=== PATIENT | male | born 1965 | race Caucasian/White ===

== ENCOUNTER 2017-06-26 19:47 | Emergency (ER) | payer OTHER ==
[2017-06-26 20:46] LABS: CARBOXYHEMOGLOBIN 8.8 % (0.0-1.5)
[2017-06-26 20:54] LABS: BASO # 0.1 10^3/uL (0.0-0.2); BASO % 0.5 % (0.0-1.0); EOS # 0.3 10^3/uL (0.0-0.50); EOS % 2.5 % (0.0-3.0); HEMATOCRIT 47.3 % (42.0-52.0); HEMOGLOBIN 16.4 g/dl (14.0-18.0); IMMATURE GRANULOCYTE % 0.5 % (0-3.0); LYMPH # 2.8 10^3/uL (1.5-4.5); LYMPH % 21.7 % (24.0-44.0); MEAN CORPUSCULAR HEMOGLOBIN 29.1 pg (27.0-33.0); MEAN CORPUSCULAR HGB CONC 34.7 g/dl (32.0-36.5); MONO # 0.7 10^3/uL (0.0-0.8); NEUTROPHILS % 69.8 % (36.0-66.0); PLATELET COUNT, AUTOMATED 189 10^3/uL (150-450); RED BLOOD COUNT 5.63 10^6/uL (4.30-6.10); RED CELL DISTRIBUTION WIDTH 13.6 % (11.5-14.5)
[2017-06-26 21:04] LABS: INR 0.94; PROTHROMBIN TIME 12.6 SECONDS (12.4-14.5)
[2017-06-26 21:26] LABS: ALBUMIN 3.6 GM/DL (3.2-5.2); ALKALINE PHOSPHATASE 106 U/L (45-117); ANION GAP 10 MEQ/L (8-16); BILIRUBIN,DIRECT < 0.1 MG/DL (0.0-0.2); BILIRUBIN,TOTAL 0.3 MG/DL (0.2-1.0); BLOOD UREA NITROGEN 17 MG/DL (7-18); CARBON DIOXIDE LEVEL 25 MEQ/L (21-32); CHLORIDE LEVEL 102 MEQ/L (98-107); CPK CREATINE PHOSPHOKINASE 107 U/L (39-308); CREATININE FOR GFR 0.77 MG/DL (0.70-1.30); GLOMERULAR FILTRATION RATE > 60.0 (>56); GLUCOSE, FASTING 352 MG/DL (70-100); POTASSIUM SERUM 3.9 MEQ/L (3.5-5.1); SODIUM LEVEL 137 MEQ/L (136-145); TROPONIN I < 0.02 NG/ML (< 0.10)
[2017-06-26 21:28] LABS: MB/CK RELATIVE INDEX 0.93 (< OR =4)
[2017-06-26 21:29] LABS: AST/SGOT 20 U/L (7-37)
[2017-06-26 21:42] LABS: ALT/SGPT 20 U/L (12-78)
[2017-06-26 21:43] LABS: ALBUMIN/GLOBULIN RATIO 0.92 (1.00-1.93); TOTAL PROTEIN 7.5 GM/DL (6.4-8.2)
== END 2017-06-26 22:22 | disposition home or self-care (01) ==
LOC: M ED 19:47
DX: T58.01XA Toxic effect of carbon monoxide from motor vehicle exhaust, accidental (unintentional), initial encounter (principal); R51 Headache; R06.02 Shortness of breath; R07.9 Chest pain, unspecified; R05 Cough; X58.XXXA Exposure to other specified factors, initial encounter; Y92.89 Other specified places as the place of occurrence of the external cause; I25.10 Atherosclerotic heart disease of native coronary artery without angina pectoris; Z95.5 Presence of coronary angioplasty implant and graft; F17.210 Nicotine dependence, cigarettes, uncomplicated; Z79.899 Other long term (current) drug therapy; Z79.82 Long term (current) use of aspirin
CPT/HCPCS: 71046

== ENCOUNTER 2018-03-28 06:54 | Emergency (ER) | payer OTHER ==
[2018-03-28 07:30] LABS: BASO % 0.3 % (0.0-1.0); EOS # 0.2 10^3/uL (0.0-0.50); EOS % 1.5 % (0.0-3.0); HEMATOCRIT 47.1 % (42.0-52.0); HEMOGLOBIN 15.7 g/dl (13.5-17.5); IMMATURE GRANULOCYTE % 0.4 % (0-3.0); LYMPH # 1.6 10^3/uL (1.5-4.5); LYMPH % 14.4 % (24.0-44.0); MEAN CORPUSCULAR HEMOGLOBIN 28.5 pg (27.0-33.0); MEAN CORPUSCULAR HGB CONC 33.3 g/dl (32.0-36.5); MEAN CORPUSCULAR VOLUME 85.5 fl (80.0-96.0); MONO # 0.6 10^3/uL (0.0-0.8); MONO % 5.1 % (0.0-5.0); NEUTROPHILS # 8.7 10^3/uL (1.8-7.7); NEUTROPHILS % 78.3 % (36.0-66.0); PLATELET COUNT, AUTOMATED 162 10^3/uL (150-450); RED BLOOD COUNT 5.51 10^6/uL (4.30-6.10); RED CELL DISTRIBUTION WIDTH 13.8 % (11.5-14.5); WHITE BLOOD COUNT 11.2 10^3/uL (4.0-10.0)
[2018-03-28 07:46] LABS: PROTHROMBIN TIME 13.3 SECONDS (12.1-14.4)
[2018-03-28 07:47] LABS: PARTIAL THROMBOPLASTIN TIME 27.7 SECONDS (25.4-37.6)
[2018-03-28 07:59] LABS: ALBUMIN 3.2 GM/DL (3.2-5.2); ALBUMIN/GLOBULIN RATIO 0.78 (1.00-1.93); ALKALINE PHOSPHATASE 88 U/L (45-117); ALT/SGPT 22 U/L (12-78); ANION GAP 8 MEQ/L (8-16); AST/SGOT 11 U/L (7-37); BILIRUBIN,DIRECT < 0.1 MG/DL (0.0-0.2); BILIRUBIN,TOTAL 0.4 MG/DL (0.2-1.0); BLOOD UREA NITROGEN 10 MG/DL (7-18); CALCIUM LEVEL 8.6 MG/DL (8.5-10.1); CARBON DIOXIDE LEVEL 26 MEQ/L (21-32); CHLORIDE LEVEL 103 MEQ/L (98-107); CPK CREATINE PHOSPHOKINASE 112 U/L (39-308); CREATININE FOR GFR 0.73 MG/DL (0.70-1.30); FREE T4 1.34 NG/DL (0.76-1.46); GLOMERULAR FILTRATION RATE > 60.0 (>56); GLUCOSE, FASTING 360 MG/DL (70-100); LIPASE 323 U/L (73-393); MB/CK RELATIVE INDEX 1.16 (< OR =4); SODIUM LEVEL 137 MEQ/L (136-145); THYROID STIMULATING HORMONE 0.812 uIU/ML (0.358-3.740); TOTAL PROTEIN 7.3 GM/DL (6.4-8.2); TROPONIN I < 0.02 NG/ML (< 0.10)
[2018-03-28] MEDS ORDERED: ISOVUE-370 76% 100ML VIAL (Q9967) As Ordered (08:13)
[2018-03-28 13:39] LABS: CPK CREATINE PHOSPHOKINASE 92 U/L (39-308); MB/CK RELATIVE INDEX 1.41 (< OR =4); TROPONIN I < 0.02 NG/ML (< 0.10)
== END 2018-03-28 14:14 | disposition left against medical advice (07) ==
LOC: M ED 06:54
DX: R07.9 Chest pain, unspecified (principal); R00.0 Tachycardia, unspecified; R94.31 Abnormal electrocardiogram [ECG] [EKG]; R91.1 Solitary pulmonary nodule; I25.10 Atherosclerotic heart disease of native coronary artery without angina pectoris; E11.9 Type 2 diabetes mellitus without complications; E78.5 Hyperlipidemia, unspecified; Z95.5 Presence of coronary angioplasty implant and graft; Z72.0 Tobacco use; Z82.49 Family history of ischemic heart disease and other diseases of the circulatory system; Z79.82 Long term (current) use of aspirin; Z79.84 Long term (current) use of oral hypoglycemic drugs; Z79.899 Other long term (current) drug therapy; Z53.21 Procedure and treatment not carried out due to patient leaving prior to being seen by health care provider
CPT/HCPCS: Q9967

== ENCOUNTER → 2018-04-05 | Outpatient (CLI) | payer OTHER ==
[2018-04-05 16:09] LABS: TROPONIN I < 0.02 NG/ML (< 0.10)
== END ==
LOC: M LAB 15:14
DX: I25.10 Atherosclerotic heart disease of native coronary artery without angina pectoris (principal); G80.9 Cerebral palsy, unspecified
CPT/HCPCS: 36415

== ENCOUNTER → 2018-07-01 | Outpatient (CLI) | payer OTHER ==
[~2018-07-01] MED LIST: ASPI81TA52 PO; ATOR40TA75 PO; GLIP5TAB8 PO; HEPARIN 1,000 UNITS/ML 10ML VIAL (FOR RADIOLOGY& DIALYSIS ONLY) As Ordered ONE; INVO100T PO; ISOVUE-300 61% 50ML VIAL (Q9967) As Ordered ONE; LIDOCAINE 2% MDV 20 ML VIAL As Ordered ONE; LISI10TA4 PO; METO1TAB7 PO; MIDAZOLAM INJ 2 MG/2 ML VIAL (J2250) As Ordered ONE; VITA1CAP25 PO; fentaNYL 100 MCG/2 ML INJECTION (J3010) As Ordered ONE
[2018-07-01 08:34] LABS: HEMATOCRIT 45.5 % (42.0-52.0); HEMOGLOBIN 15.6 g/dl (13.5-17.5); MEAN CORPUSCULAR HEMOGLOBIN 28.6 pg (27.0-33.0); MEAN CORPUSCULAR HGB CONC 34.3 g/dl (32.0-36.5); MEAN CORPUSCULAR VOLUME 83.3 fl (80.0-96.0); PLATELET COUNT, AUTOMATED 165 10^3/uL (150-450); RED BLOOD COUNT 5.46 10^6/uL (4.30-6.10)
[2018-07-01 09:06] LABS: BLOOD UREA NITROGEN 11 MG/DL (7-18); CALCIUM LEVEL 8.5 MG/DL (8.5-10.1); CARBON DIOXIDE LEVEL 25 MEQ/L (21-32); CHLORIDE LEVEL 102 MEQ/L (98-107); CREATININE FOR GFR 0.76 MG/DL (0.70-1.30); GLOMERULAR FILTRATION RATE > 60.0 (>56); GLUCOSE, FASTING 335 MG/DL (70-100); POTASSIUM SERUM 4.1 MEQ/L (3.5-5.1); SODIUM LEVEL 135 MEQ/L (136-145)
--- NOTE | 2018-07-13 13:40 | REPIR ---
DATE OF PROCEDURE: 07/01/2018 ATTENDING SURGEON: Dr. Noa Hernandez SENIOR INFORMATION DEVELOPER: PREOPERATIVE DIAGNOSES: Right lower extremity claudication, tobacco use with two packs per day times 30 years, diabetes mellitus, hypercholesterolemia, hypertension. POSTOPERATIVE DIAGNOSES: Right lower extremity claudication, tobacco use with two packs per day times 30 years, diabetes mellitus, hypercholesterolemia, hypertension. PROCEDURE: Aortogram, iliofemoral angiogram, right lower extremity angiography, right superficial femoral arterial atherectomy with jet stream 2.4/3.4 catheter, right superficial femoral artery angioplasty with a 7 x 100 angioplasty and 7 x 120 Sarah drug-eluting stent postdilated with a 7 x 200 balloon, Mynx closure of the left common femoral artery. 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 Risks, benefits and alternative treatment options were discussed with the patient. ANESTHESIA: Local with sedation with 3 mg of Versed, 150 mcg of fentanyl and 10 mL of 2% lidocaine. CONTRAST: 18.5 mL. SEDATION TIME; From 10:07 a.m. to 11:18 a.m. HEPARIN: 7000 units COMPLICATIONS: None. DRAINS: None. SPECIMEN: None. IMPLANT: 7 x 128 balloon via drug-eluting stent in the right superficial femoral artery. DESCRIPTION OF PROCEDURE: The patient was taken to the angiography suite, placed supine on the angiography room table and then prepped and draped in a standard surgical fashion. The left common femoral artery was cannulated with a micropuncture needle after anesthetizing overlying skin with 2% lidocaine. The micropuncture wire was advanced through the micropuncture needle, which was upsized to a micropuncture sheath. A Bentson wire was advanced through the micropuncture sheath, which was upsized to 5-Armenian sheath. An aortogram and iliofemoral angiogram was performed. A right lower extremity angiogram was performed showing severe diffuse disease along the course of the right superficial femoral artery. The right superficial femoral artery then underwent atherectomy with a jet stream 2.4/3.4 catheter. The remainder of the superficial femoral artery underwent angioplasty and stenting with a 7 x 120 balloon via drug-eluting stent, which was postdilated with a 7 x 200 balloon. A completion angiogram showed resolution of the stenosis with widely patent superficial femoral artery into the popliteal artery and distally. Catheters and wires were removed. The sheath was removed and a Mynx closure device used close the arteriotomy in the left common femoral artery with an additional 10 minutes of adjunctive pressure applied for hemostasis. Dressings were then applied. The patient tolerated the procedure well. All instrument, sponge, and needle counts were correct at the end of the case. There were no complications. Dr. Hernandez was present for and directed the entire case. The patient was transferred to the [facility] and subsequently discharged in stable condition.
== END | disposition home or self-care (01) ==
LOC: M IRPRO 07:53
PROVIDERS: ATTEND Surgery Vascular Surgery
DX: I70.211 Atherosclerosis of native arteries of extremities with intermittent claudication, right leg (principal); E11.9 Type 2 diabetes mellitus without complications; I10 Essential (primary) hypertension; E78.00 Pure hypercholesterolemia, unspecified; F17.210 Nicotine dependence, cigarettes, uncomplicated
CPT/HCPCS: 37227; 75710; 80048; 85027; C1724; C1725; C1760; C1769; C1874; C1887; C1894; J2250; J3010; Q9967

== ENCOUNTER 2018-07-28 09:42 | Observation (INO) | payer OTHER ==
[~2018-07-28] VITALS: Ht 170.2 cm; Wt 88.9 kg
[~2018-07-28 09:42] MED LIST changes: -HEPARIN 1,000 UNITS/ML 10ML VIAL (FOR RADIOLOGY& DIALYSIS ONLY) As Ordered ONE; -ISOVUE-300 61% 50ML VIAL (Q9967) As Ordered ONE; -LIDOCAINE 2% MDV 20 ML VIAL As Ordered ONE; -MIDAZOLAM INJ 2 MG/2 ML VIAL (J2250) As Ordered ONE; -fentaNYL 100 MCG/2 ML INJECTION (J3010) As Ordered ONE
[2018-07-28] MEDS ORDERED: CLOP75TA2 PO (09:49)
[2018-07-28] MEDS ORDERED: METO1TAB32 PO (09:49)
[2018-07-28] MEDS ORDERED: GLIP10TA18 PO (09:49)
[2018-07-28] MEDS ORDERED: LISI-538 PO (09:49)
[2018-07-28 10:37] LABS: HEMATOCRIT 43.6 % (42.0-52.0); HEMOGLOBIN 14.7 g/dl (13.5-17.5); MEAN CORPUSCULAR HEMOGLOBIN 28.2 pg (27.0-33.0); MEAN CORPUSCULAR HGB CONC 33.7 g/dl (32.0-36.5); MEAN CORPUSCULAR VOLUME 83.5 fl (80.0-96.0); PLATELET COUNT, AUTOMATED 180 10^3/uL (150-450); RED BLOOD COUNT 5.22 10^6/uL (4.30-6.10)
[2018-07-28 11:00] LABS: ERYTHROCYTE SEDIMENTATION RATE 45 mm/hr (0-20)
[2018-07-28 11:11] LABS: BLOOD UREA NITROGEN 8 MG/DL (7-18); CALCIUM LEVEL 8.7 MG/DL (8.5-10.1); CARBON DIOXIDE LEVEL 22 MEQ/L (21-32); CHLORIDE LEVEL 98 MEQ/L (98-107); CREATININE FOR GFR 0.67 MG/DL (0.70-1.30); GLOMERULAR FILTRATION RATE > 60.0 (>56); GLUCOSE, FASTING 331 MG/DL (70-100); POTASSIUM SERUM 3.7 MEQ/L (3.5-5.1); SODIUM LEVEL 133 MEQ/L (136-145)
[2018-07-28] MEDS ORDERED: ISOVUE-370 76% 100ML VIAL (Q9967) As Ordered ONE (11:28)
--- NOTE | 2018-07-28 12:37 | REP ---
CT NECK WITH CONTRAST: HISTORY: Possible mass. A B.B. was placed on the mid posterior neck at the C3-4 level. A punctate calcification is present in the base of the epiglottis. This may be secondary to previous inflammatory disease or trauma. The naso- and oropharynx, larynx and subglottic trachea are normal in appearance. The salivary glands are normal in size and in density. Two 3 mm hypodensities are present in the right and left thyroid lobes. These most likely represent cysts. The thyroid gland is normal in size. An enlarged lymph node 1.6 cm in width is present in the right posterior triangle at the level of the thyroid cartilage. Small lymph nodes less than 1 cm in size are present in the internal jugular chains, left posterior triangle and submandibular areas. An ill-defined isodense soft tissue density is present in the midline posterior subcutaneous tissue at the C2 level. This measures approximately 2.5 cm in width. Stranding is present in the surrounding subcutaneous tissue. This extends from the inferior occiput to the C4 vertebral body. There is no abscess. Atherosclerotic calcification is present at the carotid bifurcations. 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 The lung apices are clear. Mucosal thickening is present in the ethmoid and right maxillary sinuses. IMPRESSION: There is an ill-defined soft tissue density approximately 2.5 cm width in the midline posterior subcutaneous tissues at the C2 level. This may represent an infected sebaceous cyst or phlegmon. There is surrounding stranding consistent with edema. There is no abscess. Electronically Signed by Luis Aleman MD 07/28/2018 12:46 P
[2018-07-28] MEDS ORDERED: MORPHINE 4 MG/ML 1ML VIAL/SYRINGE (J2270) IV ONE (12:45)
[2018-07-28] MEDS ORDERED: CLINDAMYCIN 600 MG in APPROPRIATE DILUENT 1 EA IV ONE (12:45)
--- NOTE | 2018-07-28 16:42 | HPE ---
DATE OF ADMISSION: 07/28/2018 53-year-old male with a past medical history of hypertension, hyperlipidemia, diabetes, who presented to the emergency room with pain and swelling in the back of his neck. This happened about 48 hours ago. He denies any drainage from the site. He came to the emergency room for evaluation. In the emergency room, he had a CT scan of his neck done that showed a soft tissue mass. The CT was officially read as an infected sebaceous cyst or phlegmon. The patient was started on IV clindamycin. Dr. eFrnandez has been called for surgical consultation and he will see the patient shortly. The patient will be admitted for further management. He denies any subjective feeling of fevers, aches or chills. He has not had a recent hair cut in that area in the past few days. PAST MEDICAL HISTORY: Again, past medical history of: 1. Hypertension. 2. Diabetes. 3. Hyperlipidemia. ALLERGIES: He has no known drug allergies. FAMILY HISTORY: Noncontributory. SOCIAL HISTORY: The patient smokes a pack a day for many years. Denies alcohol or illicit drugs. MEDICATIONS: He takes at home: - aspirin 81 mg by mouth daily - atorvastatin 40 mg by mouth at bedtime - cholecalciferol 50,000 units by mouth weekly - Plavix 75 mg by mouth at bedtime - glipizide 20 mg by mouth at bedtime - Lisinopril 20 mg by mouth at bedtime - metoprolol 25 mg by mouth at bedtime REVIEW OF SYSTEMS: Negative for all ten major systems except what is mentioned in the history of present illness. PHYSICAL EXAMINATION: VITAL SIGNS: Blood pressure 140/81, heart rate is 124 and regular, respiratory rate 18, temperature 97.5, oxygen saturation 96% on room air. Head is atraumatic, normocephalic. Neck is supple with no jugular venous distention (JVD). Lungs clear to auscultation. S1, S2 audible. No murmurs appreciated. Abdomen is soft. Positive bowel sounds. No pedal edema. Skin: There is a large mass in the occipital region of the head. There is a tiny scab noted, likely a sinus drainage area. It is painful to touch and is warm. Neurologic examination, the patient is awake, alert and oriented times three. LABORATORIES: WBC 17, hemoglobin is 14.7, hematocrit 42.6, platelets 180,000. Sodium 133, potassium 3.7, chloride 98, CO2 of 22, BUN 8, creatinine 0.67, glucose 331. IMPRESSION: Neck abscess. PLAN: The patient is to be admitted to the medical/surgical floor. We will continue the patient on IV Zosyn and doxycycline. We await Dr. Fernandez's recommendations on consult. We will continue all of his preadmission medications and his care on the medical/surgical floor.
[2018-07-28] MEDS: PIPERACILLIN/TAZOBACTAM SOD 3.375 GM in D5W MINI-BAG PLUS 50 ML IV SCH (18:00)
[2018-07-28 18:30] VITALS: BP 118/72
[2018-07-28] MEDS ORDERED: MIDAZOLAM INJ 2 MG/2 ML VIAL (J2250) As Ordered ONE (20:31)
[2018-07-28] MEDS ORDERED: fentaNYL 100 MCG/2 ML INJECTION (J3010) As Ordered ONE (20:31)
[2018-07-28] MEDS ORDERED: PROPOFOL 200 MG/20 ML VIAL As Ordered ONE (20:31)
[2018-07-28] MEDS ORDERED: LR 1,000 ML IV SCH (21:00)
[2018-07-28] MEDS ORDERED: PERCOCET 5MG/325MG TAB PO PRN (21:00)
[2018-07-28] MEDS ORDERED: METOCLOPRAMIDE INJ 10MG/2ML VIAL (J2765) IV PRN (21:00)
[2018-07-28] MEDS ORDERED: ONDANSETRON 4MG/2ML VIAL (J2405) IV PRN (21:00)
[2018-07-28] MEDS ORDERED: fentaNYL 100 MCG/2 ML INJECTION (J3010) IV PRN (21:00)
[2018-07-28] MEDS ORDERED: PERCOCET 5MG/325MG TAB As Ordered ONE (21:13)
[2018-07-28] MEDS ORDERED: ONDANSETRON 4MG/2ML VIAL (J2405) As Ordered ONE (21:13)
[2018-07-28] MEDS: ATORVASTATIN 20 MG TAB PO SCH (22:13)
[2018-07-28] MEDS: glipiZIDE XL 5 MG TABCR PO SCH (22:14)
[2018-07-28] MEDS: ASPIRIN 81 MG CHEW TABLET PO SCH (22:14)
[2018-07-28] MEDS: METOPROLOL SUCC *XL* 25MG TAB (TopROL *XL*) PO SCH (22:14)
[2018-07-28] MEDS: LISINOPRIL 20 MG TAB PO SCH (22:14)
[2018-07-28] MEDS: CLOPIDOGREL 75 MG TAB PO SCH (22:14)
[2018-07-28 22:25] VITALS: BP 149/88
[2018-07-28] MEDS: DOXYCYCLINE HYCLATE 100 MG in D5W MINI-BAG PLUS 100 ML IV SCH (22:44)
[2018-07-28 23:55] VITALS: BP 138/68
[2018-07-29] MEDS: PIPERACILLIN/TAZOBACTAM SOD 3.375 GM in D5W MINI-BAG PLUS 50 ML IV SCH ×4 (00:35→17:44)
[2018-07-29 02:00] VITALS: BP 140/62
[2018-07-29] MEDS: MORPHINE 4 MG/ML 1ML VIAL/SYRINGE (J2270) IV PRN ×3 (05:54→18:10)
[2018-07-29 06:00] VITALS: BP 147/75
[2018-07-29] MEDS ORDERED: LIDOCAINE 1% MDV 20ML VIAL XX ONE (06:33)
[2018-07-29 06:55] LABS: BASO # 0.1 10^3/uL (0.0-0.2); BASO % 0.3 % (0.0-1.0); EOS # 0.3 10^3/uL (0.0-0.50); EOS % 1.3 % (0.0-3.0); HEMATOCRIT 43.7 % (42.0-52.0); HEMOGLOBIN 14.6 g/dl (13.5-17.5); LYMPH # 1.5 10^3/uL (1.5-4.5); LYMPH % 7.1 % (24.0-44.0); MEAN CORPUSCULAR HEMOGLOBIN 28.1 pg (27.0-33.0); MEAN CORPUSCULAR HGB CONC 33.4 g/dl (32.0-36.5); MEAN CORPUSCULAR VOLUME 84.2 fl (80.0-96.0); MONO % 10.2 % (0.0-5.0); NEUTROPHILS # 16.4 10^3/uL (1.8-7.7); NEUTROPHILS % 80.4 % (36.0-66.0); PLATELET COUNT, AUTOMATED 191 10^3/uL (150-450); RED BLOOD COUNT 5.19 10^6/uL (4.30-6.10); WHITE BLOOD COUNT 20.5 10^3/uL (4.0-10.0)
[2018-07-29] MEDS ORDERED: GLUCAGON FOR INJ 1 MG VIAL (J1610) SC PRN (07:15)
[2018-07-29] MEDS ORDERED: DEXTROSE 50% 50 ML SYRINGE IV PRN (07:15)
[2018-07-29] MEDS ORDERED: GLUCOSE 4 GM CHEW TABLET PO PRN (07:15)
[2018-07-29 07:23] LABS: MONO # 2.1 10^3/uL (0.0-0.8)
[2018-07-29 07:33] LABS: BLOOD UREA NITROGEN 11 MG/DL (7-18); CALCIUM LEVEL 8.6 MG/DL (8.5-10.1); CARBON DIOXIDE LEVEL 24 MEQ/L (21-32); CHLORIDE LEVEL 97 MEQ/L (98-107); CREATININE FOR GFR 0.62 MG/DL (0.70-1.30); GLOMERULAR FILTRATION RATE > 60.0 (>56); GLUCOSE, FASTING 265 MG/DL (70-100); POTASSIUM SERUM 3.4 MEQ/L (3.5-5.1); SODIUM LEVEL 129 MEQ/L (136-145)
[2018-07-29] MEDS: HumaLOG INSULIN (NovoLOG) PER UNIT SC SCH ×3 (08:37→17:44)
[2018-07-29] MEDS: DOXYCYCLINE HYCLATE 100 MG in D5W MINI-BAG PLUS 100 ML IV SCH ×2 (08:38→21:28)
[2018-07-29 08:39] LABS: HEMOGLOBIN A1c 11.6 %
--- NOTE | 2018-07-29 10:01 | IPNPDOC ---
Text Note Date of Service The patient was seen on 07/29/18. NOTE No acute events overnight. Denies nausea, emesis, or fevers. The pain on the back of his neck is still there, but it is improved. VSSAF NAD neck - posterior neck swelling is decreasing along with the erythema, the dressing is c/d/i labs - see below A) 53y/o male s/p I+D of posterior neck abscess P) reg diet abx change dressing daily with packing ok to d/c from surgical standpoint once WBC improves. Bull Fernandez DO VS,Fishbone, I+O VS, Fishbone, I+O Laboratory Tests 07/28/18 10:29 Red Blood Count 5.22, Mean Corpuscular Volume 83.5, Mean Corpuscular Hemoglobin 28.2, Mean Corpuscular Hemoglobin Concent 33.7, Red Cell Distribution Width 13.2, Calcium Level 8.7 07/29/18 06:37 Red Blood Count 5.19, Mean Corpuscular Volume 84.2, Mean Corpuscular Hemoglobin 28.1, Mean Corpuscular Hemoglobin Concent 33.4, Red Cell Distribution Width 13.1, Calcium Level 8.6, Neutrophils (%) (Auto) 80.4 H, Lymphocytes (%) (Auto) 7.1 L, Monocytes (%) (Auto) 10.2 H, Eosinophils (%) (Auto) 1.3, Basophils (%) (Auto) 0.3, Neutrophils # (Auto) 16.4 H, Lymphocytes # (Auto) 1.5, Monocytes # (Auto) 2.1 H, Eosinophils # (Auto) 0.3, Basophils # (Auto) 0.1 Vital Signs Date Time Temp Pulse Resp B/P (MAP) Pulse Ox O2 Delivery O2 Flow Rate FiO2 07/29/18 06:04 16 07/29/18 06:00 98.5 109 147/75 (99) 96 07/28/18 09:43 Room Air I&O- Last 24 Hours up to 6 AM 07/29/18 06:00 Intake Total 1115 ml Output Total 5 ml Balance 1110 ml DEBBIE FERNANDEZ DO Jul 29, 2018 10:01
--- NOTE | 2018-07-29 10:44 | RO ---
DATE OF PROCEDURE: 07/28/2018 PREOPERATIVE DIAGNOSIS: Posterior neck abscess. POSTOPERATIVE DIAGNOSIS: Posterior neck abscess. PROCEDURE: Incision and drainage of neck abscess. SURGEON: Dr. Fernandez. DOUBLE END TENONER OPERATOR: None. ANESTHESIA: IV sedation with local. COMPLICATIONS: None. ESTIMATED BLOOD LOSS: 5. INDICATIONS FOR PROCEDURE: The patient is 52-year-old male who presents with a large posterior neck abscess. The recommendation is to proceed with incision and drainage. Risks and benefits of the procedure, not limited to but including bleeding, infection, damage to surrounding structures and need for further surgery were discussed in detail with the patient, informed consent was obtained, procedure was planned. DESCRIPTION OF PROCEDURE: The patient brought to operating room one. After sufficient sedation, posterior neck was sterilely prepped and draped with Betadine. Next, time-out was done to confirm proper patient and proper procedure. Following that, 5 mL of local was injected into the skin and subcutaneous tissue overlying the most fluctuant portion of the abscess. Next, a 15 the scalpel was used to make 1/2 cm incision right into the center of the abscess until purulent drainage was encountered. The purulent fluid was sucked out and then hemostats were used to break up loculations gently. Once that was completed, the wound was irrigated with saline, packed with quarter inch iodoform packing, covered with 4x4 and tape, thus ending procedure. The patient tolerated procedure well and was transferred to postanesthesia care unit (PACU) in stable condition. JOANNE
[2018-07-29 14:00] VITALS: BP 139/72
[2018-07-29] MEDS ORDERED: HumaLOG INSULIN (NovoLOG) PER UNIT SC SCH (21:00)
--- NOTE | 2018-07-29 21:20 | IPNPDOC ---
Text Note Date of Service The patient was seen on 07/29/18. NOTE Subjective: Feels much better after draining the posterior neck abscess. how ever his sugars are uncontrolled. He says he cannot take insulin then he will loose his Job. 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 He also says he does not have a glucometer at home so does not check his sugars . He says he does not want one. I did explain that he should take the insulin the the hospital at least because if the sugars are not controlled the infection will not get better easily. He agreed to take it in the hospital. 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 PHYSICAL EXAMINATION: VITAL SIGNS:As below Head is atraumatic, normocephalic. Neck is supple with no jugular venous distention (JVD). Lungs clear to auscultation. Heart: S1, S2 audible. No murmurs appreciated. Abdomen is soft. Positive bowel sounds. No pedal edema. Skin: There is a large mass in the occipital region of the head. There is a tiny scab noted, likely a sinus drainage area. It is painful to touch and is warm. Neurologic examination, the patient is awake, alert and oriented times three. Labs and Radiology: reviewed Assessment and Plan: 53-year-old male with a past medical history of hypertension, hyperlipidemia, diabetes, who presented to the emergency room with pain and swelling in the back of his neck. This happened about 48 hours ago. He denies any drainage from the site. He came to the emergency room for evaluation. In the emergency room, he had a CT scan of his neck done that showed a soft tissue mass. The CT was officially read as an infected sebaceous cyst or phlegmon. The patient was started on IV clindamycin. Dr. Fernandez has been called for surgical cons ultation. The patient was admitted for Neck abscess. Posterior Neck Cellulitis and Abscess went to OR last night had incision and drainage of neck --posterior. continue Zosyn and doxycycline await cultures. Diabetes continue glipizide A1c> 11 sugars are uncontrolled. lispro AC and HS if needed. Levemir in the am pateint is adamant about not using any insulin CAD /PVD continue asa and plavix. Hypertension lisinopril and metoprolol Hyperlipidemia continue statin DVT prophylaxis ordered. VS,Fishbone, I+O VS, Fishbone, I+O Laboratory Tests 07/28/18 10:29 Red Blood Count 5.22, Mean Corpuscular Volume 83.5, Mean Corpuscular Hemoglobin 28.2, Mean Corpuscular Hemoglobin Concent 33.7, Red Cell Distribution Width 13.2, Calcium Level 8.7 Vital Signs Date Time Temp Pulse Resp B/P (MAP) Pulse Ox O2 Delivery O2 Flow Rate FiO2 07/29/18 06:04 16 07/29/18 06:00 98.5 109 147/75 (99) 96 07/28/18 09:43 Room Air I&O- Last 24 Hours up to 6 AM 07/29/18 06:00 Intake Total 1115 ml Output Total 5 ml Balance 1110 ml ANGEILA WOOD MD Jul 29, 2018 07:24
[2018-07-29 21:27] VITALS: BP 144/73
[2018-07-29] MEDS: glipiZIDE XL 5 MG TABCR PO SCH (21:27)
[2018-07-29] MEDS: METOPROLOL SUCC *XL* 25MG TAB (TopROL *XL*) PO SCH (21:27)
[2018-07-29] MEDS: ASPIRIN 81 MG CHEW TABLET PO SCH (21:27)
[2018-07-29] MEDS: LISINOPRIL 20 MG TAB PO SCH (21:27)
[2018-07-29] MEDS: CLOPIDOGREL 75 MG TAB PO SCH (21:27)
[2018-07-29] MEDS: ATORVASTATIN 20 MG TAB PO SCH (21:27)
[2018-07-29 22:00] VITALS: BP 144/73
[2018-07-30] MEDS: PIPERACILLIN/TAZOBACTAM SOD 3.375 GM in D5W MINI-BAG PLUS 50 ML IV SCH ×2 (00:47→06:47)
[2018-07-30 02:00] VITALS: BP 107/57
[2018-07-30 06:00] VITALS: BP 118/68
[2018-07-30 07:13] LABS: BASO # 0.1 10^3/uL (0.0-0.2); BASO % 0.5 % (0.0-1.0); EOS # 0.4 10^3/uL (0.0-0.50); EOS % 2.9 % (0.0-3.0); HEMATOCRIT 43.9 % (42.0-52.0); HEMOGLOBIN 14.9 g/dl (13.5-17.5); LYMPH # 1.6 10^3/uL (1.5-4.5); MEAN CORPUSCULAR HEMOGLOBIN 28.1 pg (27.0-33.0); MEAN CORPUSCULAR HGB CONC 33.9 g/dl (32.0-36.5); MEAN CORPUSCULAR VOLUME 82.8 fl (80.0-96.0); MONO # 1.4 10^3/uL (0.0-0.8); MONO % 10.8 % (0.0-5.0); NEUTROPHILS # 9.5 10^3/uL (1.8-7.7); NEUTROPHILS % 73.3 % (36.0-66.0); PLATELET COUNT, AUTOMATED 197 10^3/uL (150-450)
[2018-07-30 07:28] LABS: BLOOD UREA NITROGEN 11 MG/DL (7-18); CARBON DIOXIDE LEVEL 26 MEQ/L (21-32); CHLORIDE LEVEL 98 MEQ/L (98-107); CREATININE FOR GFR 0.58 MG/DL (0.70-1.30); GLOMERULAR FILTRATION RATE > 60.0 (>56); GLUCOSE, FASTING 245 MG/DL (70-100); POTASSIUM SERUM 3.2 MEQ/L (3.5-5.1); SODIUM LEVEL 132 MEQ/L (136-145)
[2018-07-30] MEDS: HumaLOG INSULIN (NovoLOG) PER UNIT SC SCH (07:30)
[2018-07-30] MEDS ORDERED: POTASSIUM CHLORIDE 10 MEQ SR TABLET PO ONE (08:00)
[2018-07-30] MEDS ORDERED: LEVEMIR (INSULIN DETEMIR) 1 UNITS/0.01ML SC SCH (09:00)
[2018-07-30] MEDS: DOXYCYCLINE HYCLATE 100 MG in D5W MINI-BAG PLUS 100 ML IV SCH (10:19)
[2018-07-30] MEDS ORDERED: SITagliptin 50 MG TAB (JANUVIA) PO ONE (12:00)
[2018-07-30] MEDS ORDERED: CLIN150C14 PO (17:20)
[2018-07-30] MEDS ORDERED: metFORMIN (GLUCOPHAGE) 500 MG TAB PO SCH (18:00)
--- NOTE | 2018-07-30 20:42 | DS.PDOC ---
Discharge Summary General Date of Admission Jul 28, 2018 at 15:26 Date of Discharge 07/30/18 Attending Physician: ANGELIA WOOD MD Discharge Summary PROCEDURES PERFORMED DURING STAY: Incision and drainage of posterior neck abscess DISCHARGE DIAGNOSES: Posterior neck abscess Uncontrolled diabetes Hypertension Hyperlipidemia COMPLICATIONS/CHIEF COMPLAINT: Cellulitis And Abscess Of Neck. HISTORY OF PRESENT ILLNESS: see history and physical HOSPITAL COURSE: Head is atraumatic, normocephalic. Neck is supple with no jugular venous distention (JVD). Lungs clear to auscultation. Heart: S1, S2 audible. No murmurs appreciated. Abdomen is soft. Positive bowel sounds. No pedal edema. Skin: There is a large mass in the occipital region of the head. There is a tiny scab noted, likely a sinus drainage area. It is painful to touch and is warm. Neurologic examination, the patient is awake, alert and oriented times three. Labs and Radiology: reviewed Assessment and Plan: 53-year-old male with a past medical history of hypertension, hyperlipidemia, diabetes, who presented to the emergency room with pain and swelling in the back of his neck. This happened about 48 hours ago. He denies any drainage from the site. He came to the emergency room for evaluation. In the emergency room, he had a CT scan of his neck done that showed a soft tissue mass. The CT was officially read as an infected sebaceous cyst or phlegmon. The patient was started on IV clindamycin. Dr. Fernandez has been called for surgical consultation. The patient was admitted for Neck abscess. Posterior Neck Cellulitis and Abscess went to OR had incision and drainage of neck --posterior. was on Zosyn and doxycycline patient left AMA today. I have sent prescription for clindamycin to his pharmacy. nurses have called him and to to pick it up. He did not even wait for dressing materials which the nurses were going to get for him from a different floor as they were out of it on his floor. Diabetes continue glipizide A1c> 11 sugars are uncontrolled. 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 However patient left AMA CAD /PVD continue asa and plavix. Hypertension lisinopril and metoprolol Hyperlipidemia continue statin DISCHARGE MEDICATIONS: Please see below. ALLERGIES: Please see below. PHYSICAL EXAMINATION ON DISCHARGE: VITAL SIGNS: Please see below. HEENT: Head is atraumatic, normocephalic. Moist mucus membranes. Anicteric eyes. Neck is supple with no jugular venous distention (JVD). Lungs clear to auscultation. Heart: S1, S2 audible. No murmurs appreciated. Abdomen is soft. Positive bowel sounds. No pedal edema. Skin: There is a large mass in the occipital region of the head. There is a tiny scab noted, likely a sinus drainage area. It is painful to touch and is warm. Neurologic examination, the patient is awake, alert and oriented times three. LABORATORY DATA: Please see below. ACTIVITY: As tolerated DIET: Carb consistent DISPOSITION: 07 Against Medical Advice. DISCHARGE INSTRUCTIONS: Daily dressing change with iodoform gauge packing. DISCHARGE CONDITION: [Stable]. TIME SPENT ON DISCHARGE: Greater than 30 minutes. Vital Signs/I&Os Vital Signs Date Time Temp Pulse Resp B/P (MAP) Pulse Ox O2 Delivery O2 Flow Rate FiO2 07/30/18 06:00 97.7 96 18 118/68 (85) 97 07/28/18 09:43 Room Air I&O- Last 24 Hours up to 6 AM 07/30/18 06:00 Intake Total 600 ml Output Total 0 ml Balance 600 ml Laboratory Data Labs 24H Laboratory Tests 2 07/29/18 21:00: Bedside Glucose (Misc Panel) 291H 07/30/18 05:58: Immature Granulocyte % (Auto) 0.5, White Blood Count 13.0H, Red Blood Count 5.30, Hemoglobin 14.9, Hematocrit 43.9, Mean Corpuscular Volume 82.8, Mean Corpuscular Hemoglobin 28.1, Mean Corpuscular Hemoglobin Concent 33.9, Red Cell Distribution Width 13.0, Platelet Count 197, Neutrophils (%) (Auto) 73.3H, Lymphocytes (%) (Auto) 12.0L, Monocytes (%) (Auto) 10.8H, Eosinophils (%) (Auto) 2.9, Basophils (%) (Auto) 0.5, Neutrophils # (Auto) 9.5H, Lymphocytes # (Auto) 1.6, Monocytes # (Auto) 1.4H, Eosinophils # (Auto) 0.4, Basophils # (Auto) 0.1, Nucleated Red Blood Cells % (auto) 0.0, Anion Gap 8, Glomerular Filtration Rate > 60.0, Blood Urea Nitrogen 11, Creatinine 0.58L, Sodium Level 132L, Potassium Level 3.2L, Chloride Level 98, Carbon Dioxide Level 26, Calcium Level 9.0 07/30/18 11:23: Bedside Glucose (Misc Panel) 369H CBC/BMP Laboratory Tests 07/30/18 05:58 Red Blood Count 5.30, Mean Corpuscular Volume 82.8, Mean Corpuscular Hemoglobin 28.1, Mean Corpuscular Hemoglobin Concent 33.9, Red Cell Distribution Width 13.0, Neutrophils (%) (Auto) 73.3 H, Lymphocytes (%) (Auto) 12.0 L, Monocytes (%) (Auto) 10.8 H, Eosinophils (%) (Auto) 2.9, Basophils (%) (Auto) 0.5, Neutrophils # (Auto) 9.5 H, Lymphocytes # (Auto) 1.6, Monocytes # (Auto) 1.4 H, Eosinophils # (Auto) 0.4, Basophils # (Auto) 0.1, Calcium Level 9.0 FSBS Laboratory Tests Test 07/29/18 21:00 07/30/18 11:23 Range/Units Bedside Glucose (Misc Panel) 291 369 70-105 MG/DL Discharge Medications Scheduled (Aspirin EC Low Dose) 81 Mg Tab, 81 MG PO QHS, (Reported) Atorvastatin Calcium (Atorvastatin Calcium) 40 Mg Tab, 40 MG PO QHS, (Reported) Cholecalciferol (Vitamin D3) 50,000 Unit Cap, 50,000 UNITS PO QWEEK, (Reported) ON WEDNESDAY Clindamycin Hcl (Clindamycin HCl) 150 Mg Cap, 300 MG PO TID Clopidogrel Bisulfate (Clopidogrel) 75 Mg Tab, 75 MG PO QHS, (Reported) Glipizide (Glipizide ER) 10 Mg Tab, 20 MG PO QHS, (Reported) Lisinopril (Lisinopril) 20 Mg Tab, 20 MG PO QHS, (Reported) Metoprolol Succinate (Metoprolol Succinate ER) 25 Mg Tab, 25 MG PO QHS, (Reported) Allergies Coded Allergies: No Known Allergies (Unverified , 06/26/17) ANGELIA WOOD MD Jul 30, 2018 20:42
[2018-07-31] MEDS ORDERED: SITagliptin 50 MG TAB (JANUVIA) PO SCH (09:00)
== END 2018-07-30 12:29 | disposition left against medical advice (07) ==
LOC: M ED 09:42 → M ED INP 15:26 → M MS5PR 18:34
PROVIDERS: ADMIT Internal Medicine; ATTEND Internal Medicine Nephrology
DX: L02.11 Cutaneous abscess of neck (principal); E11.65 Type 2 diabetes mellitus with hyperglycemia; Z53.21 Procedure and treatment not carried out due to patient leaving prior to being seen by health care provider; I10 Essential (primary) hypertension; E78.5 Hyperlipidemia, unspecified; F17.210 Nicotine dependence, cigarettes, uncomplicated; Z79.82 Long term (current) use of aspirin; Z79.84 Long term (current) use of oral hypoglycemic drugs; Z79.899 Other long term (current) drug therapy; Z79.02 Long term (current) use of antithrombotics/antiplatelets; I73.9 Peripheral vascular disease, unspecified
CPT/HCPCS: 21501; 36415; 70491; 80048; 83036; 85025; 85027; 85652; 86140; 96374; 96375; 96376; 99284; J2250; J2270; J2405; J2543; J3010; Q9967

== ENCOUNTER → 2018-09-07 | Outpatient (CLI) | payer OTHER ==
[~2018-09-07] MED LIST changes: +CLIN150C14 PO; +CLOP75TA2 PO; +GLIP10TA18 PO; +LISI-538 PO; +METO1TAB32 PO
--- NOTE | 2018-09-07 09:51 | REP ---
BILATERAL LOWER EXTREMITY DUPLEX DOPPLER ARTERIAL ULTRASOUND: Real-time ultrasound evaluation and duplex Doppler interrogation of the bilateral lower extremity arterial systems is performed. A stent is visualized in the right superficial femoral artery. There is scattered moderate atherosclerotic plaquing bilaterally. Biphasic waveforms are seen on the right from the common femoral artery through the mid calf with monophasic waveforms in the distal anterior and posterior tibial arteries. Biphasic waveforms are seen on the left in the common femoral artery and profunda with monophasic waveforms throughout the superficial femoral artery, popliteal artery, and calf arteries. There is elevated peak systolic velocity in the right common femoral artery, proximal superficial femoral artery, and mid to distal left superficial femoral artery suggesting stenosis at these locations. ANGELINA bilaterally is 0.8. PEAK SYSTOLIC VELOCITY RIGHT LEFT Common femoral artery 259.5 cm/s 171.2 cm/s Profunda 160.8 169.1 Proximal SFA 234.2 154.7 Mid SFA 104.2 339.4 Distal SFA 108.1 389.3 Popliteal 64.2 28.7 Proximal JOHN 95.1 12.8 Tibia/peroneal trunk 91.2 38.2 Proximal HEEL PRICKER 38.3 41.6 Distal HEEL PRICKER 27.5 39.3 Distal JOHN 35.4 6.2 IMPRESSION: Moderate scattered atherosclerotic plaquing and narrowing. Stent seen in the right superficial femoral artery. Findings suggesting stenosis of the right common femoral artery, proximal right superficial femoral artery as well as mid to distal left superficial femoral artery. Electronically Signed by Carroll Collins MD 09/07/2018 10:39 A
== END ==
LOC: M RAD 07:47
PROVIDERS: ATTEND Surgery Vascular Surgery
DX: I70.209 Unspecified atherosclerosis of native arteries of extremities, unspecified extremity (principal)

== ENCOUNTER → 2018-10-03 | Outpatient (CLI) | payer OTHER ==
[~2018-10-03] MED LIST changes: +BUPIVACAINE HCL 0.5% 10 ML VIAL As Ordered ONE; +HEPARIN 1,000 UNITS/ML 10ML VIAL (FOR RADIOLOGY& DIALYSIS ONLY) As Ordered ONE; +ISOVUE-300 61% 100ML VIAL (Q9967) As Ordered ONE; +LIDOCAINE 2% MDV 20 ML VIAL As Ordered ONE; +MIDAZOLAM INJ 2 MG/2 ML VIAL (J2250) As Ordered ONE; +diphenhydrAMINE INJ 50MG/ML VIAL (J1200) As Ordered ONE; +fentaNYL 100 MCG/2 ML INJECTION (J3010) As Ordered ONE
--- NOTE | 2018-10-22 09:39 | REPIR ---
DATE OF PROCEDURE: 10/03/2018 PREOPERATIVE DIAGNOSIS: Bilateral claudication and bilateral superficial femoral arterial atherosclerotic occlusive disease. POSTOPERATIVE DIAGNOSES: Bilateral claudication and bilateral superficial femoral arterial atherosclerotic occlusive disease. PROCEDURE: Aortogram, iliofemoral angiogram, selective left common femoral artery catheter placement, MYNX closure of the right common femoral arteriotomy. SURGEON: Dr. Nathalia Hernandez. DUCTFIXING PLUMBER: Michelle David and Kristine Pacheco. INDICATION: The patient is a 53-year-old male with claudication of the lower extremities with the left being worse in the right who will undergo angiogram. ANESTHESIA: Local with 10 mL. FLUORO TIME: 1.1 minutes. CONTRAST: 16 mL of Isovue-300. ESTIMATED BLOOD LOSS: 20 mL IV FLUIDS: 150 mL. HEPARIN: None. COMPLICATIONS: None. DRAINS: None. SPECIMENS: None. IMPLANTS: None. DESCRIPTION OF PROCEDURE: The patient was taken to the angiography suite, placed supine on the angiography room table and prepped and draped in a standard surgical fashion. The right common femoral artery was cannulated. A catheter was placed in the aorta and aortogram was performed. Catheter was pulled down to the level of the bifurcation iliac arteries and an iliofemoral angiogram was performed. Catheter was directed over the bifurcation, placed in the left common femoral artery and a selective left lower extremity angiogram was performed. Catheter was then removed and a MYNX closure device was used to close the arteriotomy in the right common femoral artery with an additional 10 minutes adjunctive pressure applied for hemostasis. Dressings were then applied. The patient tolerated the procedure well. All instrument, sponge and needle counts were correct at the end the case. There were no complications. Dr. Hernandez was present for and directed the entire case. The patient was transferred to the [facility] and subsequent discharged in stable condition
== END | disposition home or self-care (01) ==
LOC: M IRPRO 07:03
PROVIDERS: ATTEND Surgery Vascular Surgery
DX: I70.213 Atherosclerosis of native arteries of extremities with intermittent claudication, bilateral legs (principal)
CPT/HCPCS: 36246; 75716; C1760; C1769; C1887; C1894; G0269; Q9967

== ENCOUNTER 2018-11-04 09:30 | Inpatient (IN) | payer OTHER ==
[~2018-11-04] VITALS: Ht 170.2 cm; Wt 84.3 kg
--- NOTE | 2018-11-04 09:00 | HPEPDOC ---
[facility] Medical History & Physical Date of Admission Nov 04, 2018 Date of Service: Nov 04, 2018 History and Physical ATTENDING: Vascular Margarette Hernandez PCP: [facility]. Cardiology Dr Paiz. HPI: 53year oldM with a past medical history significant for PAD scheduled for Left Fem Pop bypass graft as per Dr Hernandez 11/04/18. No acute medical complaints today. Denies any recent health changes or illnesses. Please also refer to Pre operative clearance placed on chart from the pt's photograph mounter, Dr Paiz. Denies any fevers, chills, weakness, fatigue, Headache, Chest Pain, Shortness of breath, cough, palpitations, abdominal pain, N/V/D or changes in bowel or bladder habits. PMHx: HTN HLD DM Tobacco use CAD/Cardiac Stent. Follows with Dr Paiz. Nuclear Stress 05/03 negative for ischemia. 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 ROS: As noted in HPI, otherwise 11pt ROS of systems reviewed and unremarkable. PE: GEN: 53yoM, appears stated age. Well-nourished, well developed. No acute distress. Alert and oriented x 3. Pleasant, interactive. HEENT: Normocephalic, atraumatic. Sclera are nonicteric. Conjunctiva without injection. No facial asymmetry. Moist mucous membranes. CHEST: Regular rate and rhythm, +S1, +S2 LUNGS: Clear to auscultation bilaterally. No wheezes, rales, or rhonchi. Breathing appears symmetric and easy. Patient is speaking in full sentences. ABD: Round, soft, non-tender, non-distended. +Bowel sounds throughout. No rebound or guarding. EXT: No lower extremity edema appreciated. SKIN: Niland, dry, warm. No rashes. NEURO: Alert and oriented x 3. Cranial nerves III-XII are intact. No focal deficits appreciated. A&P: 1. PAD Plan for Left Fem Pop Bypass graft 11/04/[address] Hernandez. Plavix/ASA/Statin as outpt. 2. CAD/Cardiac Stent. Cardiac pre operative clearance is placed on chart. Metoprolol/ASA as outpt. 3. HLD. Statin. 4. HTN. Lisinopril as outpt, on hold for now. 5. DM. NPO currently. FS 335 this AM. Glipizide as outpt. MED REC PENDING AT THIS TIME. Vital Signs Vital Signs Label Value Date Time Patient Temperature 97.7 degrees F 11/04/18 09 Temperature Source Temporal 11/04/18 09 Pulse 79 11/04/18 09 Respiratory Rate 20 bpm 11/04/18 09 Blood Pressure Assessment 132/70 (90) 11/04/18 09 Bedside Pulse Oximetry 98 % 11/04/18 09 Home Medications Scheduled (Aspirin EC Low Dose) 81 Mg Tab, 81 MG PO QHS Atorvastatin Calcium (Atorvastatin Calcium) 40 Mg Tab, 40 MG PO QHS Cholecalciferol (Vitamin D3) (Vitamin D3) 50,000 Unit Cap, 50,000 UNITS PO QWEEK ON WEDNESDAY Clopidogrel Bisulfate (Clopidogrel) 75 Mg Tab, 75 MG PO QHS Glipizide (Glipizide ER) 10 Mg Tab, 20 MG PO QHS Lisinopril (Lisinopril) 20 Mg Tab, 20 MG PO QHS Metoprolol Succinate (Metoprolol Succinate) 25 Mg Tab, 25 MG PO QHS Allergies Coded Allergies: No Known Allergies (Unverified , 06/26/17) A-FIB/CHADSVASC A-FIB History Current/History of A-Fib/PAF?: No Kisha Alvarez Nov 04, 2018 08:58
[~2018-11-04 09:30] MED LIST changes: -BUPIVACAINE HCL 0.5% 10 ML VIAL As Ordered ONE; -HEPARIN 1,000 UNITS/ML 10ML VIAL (FOR RADIOLOGY& DIALYSIS ONLY) As Ordered ONE; -ISOVUE-300 61% 100ML VIAL (Q9967) As Ordered ONE; +LIDOCAINE 1% MDV 20ML VIAL SQ PRN; -LIDOCAINE 2% MDV 20 ML VIAL As Ordered ONE; +LR 1,000 ML IV ONE; -MIDAZOLAM INJ 2 MG/2 ML VIAL (J2250) As Ordered ONE; -diphenhydrAMINE INJ 50MG/ML VIAL (J1200) As Ordered ONE; -fentaNYL 100 MCG/2 ML INJECTION (J3010) As Ordered ONE
[2018-11-04] MEDS ORDERED: PROPOFOL 500 MG/50 ML VIAL As Ordered ONE (10:20)
[2018-11-04] MEDS ORDERED: MIDAZOLAM INJ 2 MG/2 ML VIAL (J2250) As Ordered ONE (10:20)
[2018-11-04] MEDS ORDERED: dexameTHASONE 4 MG/ML 1ML VIAL (J1100) As Ordered ONE (10:20)
[2018-11-04] MEDS ORDERED: ONDANSETRON 4MG/2ML VIAL (J2405) As Ordered ONE (10:20)
[2018-11-04] MEDS ORDERED: LIDOCAINE 2% INJ 100 MG/5 ML SDV (FOR ANES.) As Ordered ONE (10:20)
[2018-11-04] MEDS ORDERED: fentaNYL 100 MCG/2 ML INJECTION (J3010) As Ordered ONE (10:21)
[2018-11-04] MEDS ORDERED: HumaLOG INSULIN (NovoLOG) PER UNIT As Ordered ONE (10:37)
[2018-11-04] MEDS ORDERED: HumaLOG INSULIN (NovoLOG) PER UNIT SC STA (10:40)
[2018-11-04] MEDS ORDERED: LIDOCAINE 1% SDV INJ 30 ML VIAL As Ordered ONE (10:51)
[2018-11-04] MEDS ORDERED: BUPIVACAINE HCL 0.5% 30 ML VIAL As Ordered ONE (10:51)
[2018-11-04] MEDS ORDERED: HEPARIN SOD (PORCINE) 5000 UNITS/ML VIAL As Ordered ONE (10:51)
[2018-11-04] MEDS ORDERED: THROMBIN SOLN 20,000 UNITS KIT As Ordered ONE (10:51)
[2018-11-04] MEDS ORDERED: HumaLOG INSULIN (NovoLOG) PER UNIT SC ONE (11:00)
[2018-11-04] MEDS ORDERED: ceFAZolin 2 GM/D5W 50 ML IV BAG (J0690 PER 500MG) As Ordered ONE (11:27)
[2018-11-04] MEDS ORDERED: KETAMINE HCL 200 MG/20 ML VIAL As Ordered ONE (11:43)
[2018-11-04] MEDS ORDERED: LIDOCAINE 2% JELLY 6 ML SYRINGE As Ordered ONE (11:47)
[2018-11-04] MEDS ORDERED: HumuLIN R (REGULAR) INSULIN (NovoLIN R) **100U/ML** PER UNIT As Ordered ONE (12:03)
[2018-11-04] MEDS ORDERED: PROPOFOL 200 MG/20 ML VIAL As Ordered ONE (12:07)
[2018-11-04] MEDS ORDERED: BISACODYL 10 MG SUPP PR PRN (13:00)
[2018-11-04] MEDS ORDERED: MORPHINE 4 MG/ML 1ML VIAL/SYRINGE (J2270) IV PRN (13:00)
[2018-11-04] MEDS ORDERED: NORCO, ANEXSIA 5/325MG TABLET (HYDROcodone/ACETAMINOPHEN) PO PRN (13:00)
[2018-11-04] MEDS ORDERED: MOM 30ML SUSPENSION UDC PO PRN (13:00)
[2018-11-04] MEDS ORDERED: ACETAMINOPHEN TAB 650MG DOSE (2X325MG) PO PRN (13:00)
[2018-11-04] MEDS ORDERED: fentaNYL 100 MCG/2 ML INJECTION (J3010) IV PRN (13:30)
[2018-11-04] MEDS ORDERED: ONDANSETRON 4MG/2ML VIAL (J2405) IV PRN (13:30)
[2018-11-04] MEDS ORDERED: oxyCODONE 5MG TAB PO PRN (13:30)
[2018-11-04] MEDS ORDERED: LR 1,000 ML IV SCH (13:30)
[2018-11-04 14:00] VITALS: BP 141/73
[2018-11-04 14:30] VITALS: BP 150/77
[2018-11-04] MEDS ORDERED: COLA100C5 PO (18:18)
[2018-11-04] MEDS ORDERED: HYDR-4571 PO (18:18)
[2018-11-04] MEDS ORDERED: DOCUSATE SODIUM 100 MG CAP PO SCH (21:00)
[2018-11-04] MEDS ORDERED: SENOKOT S TAB PO SCH (21:00)
--- NOTE | 2018-11-23 05:53 | DSES ---
DATE OF ADMISSION: 11/04/2018 DATE OF DISCHARGE: 11/04/2018 PREOPERATIVE DIAGNOSIS: Left lower extremity ischemia and pain. POST DISCHARGE DIAGNOSIS: Left lower extremity ischemia and pain PROCEDURE PERFORMED DURING HOSPITALIZATION: Left external iliac artery, common femoral artery, superficial femoral artery and profunda femoris artery endarterectomy with patch angioplasty with XenoSure biologic patch. HOSPITAL COURSE: The patient was admitted, underwent a left external iliac and femoral endarterectomy with good result. The patient recuperated well and was discharged home in stable condition.
--- NOTE | 2018-11-23 10:46 | RO ---
DATE OF PROCEDURE: 11/04/2018 ATTENDING SURGEON: Dr. Noa Hernandez INHALATION THERAPY AIDES TEACHER: None. PREOPERATIVE DIAGNOSES: Left lower extremity ischemia and pain, diabetes mellitus, tobacco use. POSTOPERATIVE DIAGNOSES: Left lower extremity ischemia and pain, diabetes mellitus, tobacco use. PROCEDURE: Left external iliac artery, common femoral artery, superficial femoral artery and profunda femoris artery endarterectomy with patch angioplasty with XenoSure biologic patch. INDICATION: The patient is a 53-year-old male with severe left lower extremity swelling and pain who has severe atherosclerotic arterial occlusive disease. The patient undergo an endarterectomy with possible patch angioplasty. ANESTHESIA: Local MAC. ESTIMATED BLOOD LOSS: 65 mL IV FLUIDS: 1300 mL COMPLICATIONS: None. DRAINS: None. SPECIMENS: Left external iliac, common femoral, superficial femoral and profunda femoris artery plaque. IMPLANTS: XenoSure biologic patch. PROCEDURE: The patient was taken to the operating room, placed supine on the operating room table and then prepped and draped in a standard surgical fashion. The incision was made obliquely in the left inguinal region. The left external iliac artery, common femoral artery, superficial femoral artery and profunda femoris artery were exposed sharply and then encircled with vessel loops. The patient was given heparin, after which the endarterectomy was completed the arteriotomy was closed using a XenoSure biologic patch and 6-0 Prolene sutures with good flow noted at the completion of procedure. Hemostasis was obtained, after which the deep layer was closed with 2-0 Vicryl and skin approximated with ravindra. Dressings were then applied. The patient tolerated procedure well. All instrument, sponge, needle counts were correct at the end of the case. There were no complications. Dr. Hernandez was present for and directed the entire case. The patient was transferred to the recovery room and subsequently discharged in stable condition.
== END 2018-11-04 19:26 | disposition home or self-care (01) | DRG 169 ==
LOC: M OR 09:30 → M MSPAV 13:53
PROVIDERS: ADMIT Surgery Vascular Surgery; ATTEND Surgery Vascular Surgery
PROC: 04UL0JZ Supplement Left Femoral Artery with Synthetic Substitute, Open Approach (ICD-10-PCS; 2018-11-04)
PROC: 04UJ0JZ Supplement Left External Iliac Artery with Synthetic Substitute, Open Approach (ICD-10-PCS; 2018-11-04)
PROC: 04CJ0ZZ Extirpation of Matter from Left External Iliac Artery, Open Approach (ICD-10-PCS; 2018-11-04)
PROC: 04CL3ZZ Extirpation of Matter from Left Femoral Artery, Percutaneous Approach (ICD-10-PCS; principal; 2018-11-04 11:15)
DX: I70.212 Atherosclerosis of native arteries of extremities with intermittent claudication, left leg (principal); I10 Essential (primary) hypertension; E11.9 Type 2 diabetes mellitus without complications; F17.200 Nicotine dependence, unspecified, uncomplicated; I25.10 Atherosclerotic heart disease of native coronary artery without angina pectoris; Z95.2 Presence of prosthetic heart valve; Z79.82 Long term (current) use of aspirin; Z79.899 Other long term (current) drug therapy

== ENCOUNTER → 2018-12-07 | Outpatient (CLI) | payer OTHER ==
[~2018-12-07] MED LIST changes: +COLA100C5 PO; +HYDR-4571 PO; -LIDOCAINE 1% MDV 20ML VIAL SQ PRN; -LR 1,000 ML IV ONE
--- NOTE | 2018-12-08 05:55 | REP ---
Clinical: Symptoms related to atherosclerotic disease and intermittent claudication. History of relatively recently performed angiography and left endarterectomy. Technique: Real time tillman scale and color Doppler evaluation of the bilateral lower extremity arterial vasculature using linear high frequency transducer. Findings: Evaluation of the right lower extremity demonstrates significant atheromatous plaquing along with a mild area of stenosis involving the right common femoral artery. Significant luminal narrowing of the right superficial femoral artery to the level of the posterior tibial artery is appreciated along with occluded portion of the proximal to mid superficial femoral artery with downstream monophasic wave forms distal to the area of revascularization. Stent noted in the mid to distal superficial femoral artery. Evaluation of the left lower extremity demonstrates significant atheromatous plaquing along with area of stenosis and narrowing involving the proximal through mid left superficial femoral artery. Area of occlusion noted in the distal superficial femoral artery with downstream revascularization and monophasic wave patterns. There is a 4.4 x 2.1 x 2.1 cm hypoechoic complex partially calcified structure within the left groin likely hematoma/seroma related to prior vascular access for endarterectomy. Incidental asymmetric brachial pressures (right greater than left) may warrant evaluation to exclude element of stenosis. Peak systolic velocities (cm/sec) RIGHT LEFT ANGELINA 0.4 0.53 Common femoral artery 138/218 53.4 Profunda femoris 205 60.8 SFA (proximal) 97/occluded 61.8/154 SFA (mid) occluded 34.7/239 SFA (distal) 68.7 occluded Popliteal artery 106 28.8 JOHN (prox.) 94.5 31.2 Tibioperoneal trunk 32 43.5 DIRECTOR OF EMPLOYER SERVICES (prox.) 22.5 63.2 DIRECTOR OF EMPLOYER SERVICES (distal) 9.7 22.8 JOHN (distal) 16.7 11.0 Impression: Considerable atherosclerotic changes as described above including bilateral areas of narrowing/stenosis and occlusion. Electronically Signed by Dharmesh Salgado MD 12/08/2018 05:46 A
== END ==
LOC: M RAD 10:15
PROVIDERS: ATTEND Physician Assistant
DX: I70.213 Atherosclerosis of native arteries of extremities with intermittent claudication, bilateral legs (principal)

== ENCOUNTER → 2018-12-28 | Outpatient (CLI) | payer OTHER ==
[~2018-12-28] MED LIST changes: +BUPIVACAINE HCL 0.5% 10 ML VIAL As Ordered ONE; +ECOT81TA5 PO; +ELIQ5TAB PO; +EZET10TA21 PO; +HEPARIN 1,000 UNITS/ML 10ML VIAL (FOR RADIOLOGY& DIALYSIS ONLY) As Ordered ONE; +ISOVUE-300 61% 50ML VIAL (Q9967) As Ordered ONE; +LIDOCAINE 2% MDV 20 ML VIAL As Ordered ONE; +METF500T13 PO; +MIDAZOLAM INJ 2 MG/2 ML VIAL (J2250) As Ordered ONE; +PROTAMINE SULF INJ 50 MG/5 ML VIAL (J2720) As Ordered ONE; +diphenhydrAMINE INJ 50MG/ML VIAL (J1200) As Ordered ONE; +fentaNYL 100 MCG/2 ML INJECTION (J3010) As Ordered ONE
[2018-12-28 07:25] LABS: HEMOGLOBIN 14.6 g/dl (13.5-17.5); MEAN CORPUSCULAR HEMOGLOBIN 28.2 pg (27.0-33.0); PLATELET COUNT, AUTOMATED 164 10^3/uL (150-450); RED BLOOD COUNT 5.18 10^6/uL (4.30-6.10); WHITE BLOOD COUNT 8.7 10^3/uL (4.0-10.0)
[2018-12-28 07:43] LABS: BLOOD UREA NITROGEN 13 MG/DL (7-18); CALCIUM LEVEL 8.5 MG/DL (8.5-10.1); CARBON DIOXIDE LEVEL 25 MEQ/L (21-32); CHLORIDE LEVEL 102 MEQ/L (98-107); CREATININE FOR GFR 0.72 MG/DL (0.70-1.30); GLOMERULAR FILTRATION RATE > 60.0 (>56); GLUCOSE, FASTING 319 MG/DL (70-100); POTASSIUM SERUM 3.9 MEQ/L (3.5-5.1); SODIUM LEVEL 137 MEQ/L (136-145)
[2018-12-28 12:15] VITALS: BP 140/74
--- NOTE | 2019-01-21 09:42 | REPIR ---
DATE OF PROCEDURE: 12/28/2018 ATTENDING SURGEON: Dr. Noa Hernandez PERSONNEL CLERK: Kailey Tang and Michelle David PREOPERATIVE DIAGNOSES: Right lower extremity claudication, status post left femoral endarterectomy. POSTPROCEDURE DIAGNOSES: Right lower extremity claudication, status post left femoral endarterectomy. PROCEDURE: Left common femoral arterial cannulation, selective right common femoral artery catheter placement with right lower extremity angiogram, Mynx closure of the left common femoral arteriotomy. INDICATION: The patient is a 53-year-old male with bilateral lower extremity claudication who underwent angiography of the left which showed severe calcific atherosclerotic occlusive disease in the left common femoral artery, profunda femoris, superficial femoral and external iliac artery and underwent a femoral endarterectomy. The patient now undergoes evaluation of the right lower extremity with angiography. ANESTHESIA: Local with sedation with 2 mg of Versed, 50 mcg of fentanyl and 20 mL of 2% lidocaine mixed with 0.5% Marcaine. FLUORO TIME: 0.7 minutes. CONTRAST: 3 mL. SEDATION TIME: From 08:01 a.m. to 08:34 a.m. for a total of 33 minutes. COMPLICATIONS: None. DRAINS: None. SPECIMENS: None. IMPLANTS: Left common femoral arteriotomy closure with a Mynx closure device. PROCEDURE: The patient was taken to the angiography suite, placed supine on the angiography room table and then prepped and draped in a standard surgical fashion. The left common femoral artery was cannulated with a micropuncture needle after anesthetizing the overlying skin with 2% lidocaine mixed with 0.5% Marcaine. The micropuncture wire was advanced through the micropuncture needle, which was upsized to a stiff micropuncture sheath. The Bentson wire was advanced through the sheath, which was upsized to 5-Macedonian sheath. An Omni flush catheter was advanced up and over the bifurcation and placed in the right common femoral artery and a right lower extremity angiogram was performed. This showed severe calcific atherosclerotic occlusive disease in the right common femoral, superficial femoral and profunda femoris arteries with occlusion of the SFA distally. The catheters and wires were removed. A Mynx closure device was used to close the arteriotomy in the left common femoral artery with an additional 10 minutes of adjunctive pressure applied for hemostasis. Dressings were then applied. The patient tolerated the procedure well. All instrument, sponge and needle counts were correct at the end of the case. There were no complications. Dr. Hernandez was present for and directed the entire case. The patient was transferred to the holding area and subsequently to the floor in stable condition.
== END ==
LOC: M IRPRO 06:53
PROVIDERS: ATTEND Surgery Vascular Surgery
DX: I70.213 Atherosclerosis of native arteries of extremities with intermittent claudication, bilateral legs (principal); I70.223 Atherosclerosis of native arteries of extremities with rest pain, bilateral legs; I10 Essential (primary) hypertension; E11.9 Type 2 diabetes mellitus without complications; E78.00 Pure hypercholesterolemia, unspecified; F17.210 Nicotine dependence, cigarettes, uncomplicated; Z79.899 Other long term (current) drug therapy; Z79.82 Long term (current) use of aspirin
CPT/HCPCS: 36246; 75710; 80048; 85027; 99152; 99153; C1760; C1769; C1887; C1894; G0269; J1200; J2250; J3010; Q9967

== ENCOUNTER → 2019-03-20 | Outpatient (CLI) | payer OTHER ==
[~2019-03-20] MED LIST changes: -BUPIVACAINE HCL 0.5% 10 ML VIAL As Ordered ONE; +CLOPIDOGREL 75 MG TAB As Ordered ONE; +CLOPIDOGREL 75 MG TAB PO ONE; +HumuLIN R (REGULAR) INSULIN (NovoLIN R) **100U/ML** PER UNIT SQ ONE; +LIDOCAINE 1% MDV 20ML VIAL As Ordered ONE; -LIDOCAINE 2% MDV 20 ML VIAL As Ordered ONE; -PROTAMINE SULF INJ 50 MG/5 ML VIAL (J2720) As Ordered ONE; -diphenhydrAMINE INJ 50MG/ML VIAL (J1200) As Ordered ONE
[2019-03-20 07:23] LABS: HEMATOCRIT 48.7 % (42.0-52.0); HEMOGLOBIN 16.3 g/dl (13.5-17.5); MEAN CORPUSCULAR HEMOGLOBIN 28.8 pg (27.0-33.0); MEAN CORPUSCULAR HGB CONC 33.5 g/dl (32.0-36.5); MEAN CORPUSCULAR VOLUME 86.2 fl (80.0-96.0); PLATELET COUNT, AUTOMATED 194 10^3/uL (150-450); RED BLOOD COUNT 5.65 10^6/uL (4.30-6.10); WHITE BLOOD COUNT 12.1 10^3/uL (4.0-10.0)
[2019-03-20 07:59] LABS: BLOOD UREA NITROGEN 11 MG/DL (7-18); CALCIUM LEVEL 8.9 MG/DL (8.5-10.1); CARBON DIOXIDE LEVEL 24 MEQ/L (21-32); CHLORIDE LEVEL 104 MEQ/L (98-107); CREATININE FOR GFR 0.82 MG/DL (0.70-1.30); GLOMERULAR FILTRATION RATE > 60.0 (>56); GLUCOSE, FASTING 449 MG/DL (70-100); POTASSIUM SERUM 4.2 MEQ/L (3.5-5.1); SODIUM LEVEL 136 MEQ/L (136-145)
--- NOTE | 2019-03-20 11:39 | ROOPDOC ---
[facility] Report Of Operation Report of Operation DATE OF PROCEDURE: 03/20/19 PREPROCEDURE DIAGNOSES: Atherosclerosis of the seminole arteries with lifestyle limiting claudication POSTPROCEDURE DIAGNOSES: Same PROCEDURE: 1. Ultrasound-guided access left common femoral artery 2. Arteriogram right lower extremity with selection views of right popliteal a rtery 3. Cross chronic total occlusion of right SFA and popliteal artery 4. Angioplasty right popliteal artery with 4 x 100 [place] balloon 5. Angioplasty right SFA artery with 6 x 100 [place] balloon 6. Stenting right popliteal and SFA with 6 x 150 Innova stent 2, and proximal 7 x 100 and innova stent 7. Post-dilation with 6 x 200 [place] balloon 8. Attempt to cross chronic total occlusion or region of anterior tibial, peroneal, and posterior tibial artery, aborted 9. Completion arteriograms 10. Mynx closure left common femoral artery SURGEON: Urvashi Herrera MD ANESTHESIA: Local 3 mL lidocaine. Monitored intravenous conscious sedation was a consulting solution director by Dr. Herrera. The patient was independently monitored by registered nurse assigned to the Department of radiology using automated blood pressure, EKG, and pulse oximetry. The detailed conscious sedation record is permanently [facility] information system. The following is the brief sedation record: Start time 08:25, stop time 10:52, insulin 10 units subcutaneous, heparin 6000 units IV, Versed 2 mg IV, fentanyl 100 g IV. Contrast: 100 mL Isovue INDICATION FOR PROCEDURE: Mr. Arteaga is a 53-year-old gentleman with lifestyle limiting claudication who cannot longer do his job successfully and has very short distance claudication with long recovery times. We discussed the risks benefits and alternatives to an arteriogram with potential intervention. The patient has a long segment SFA popliteal occlusion with the origin of all 3 tibials occluded. We are going to try to provide in-line flow if we can, but if not, we would like an arteriogram to show where we could possibly perform a distal bypass. Risks benefits and alternatives were explained and he was agreeable to proceed. Informed consent was obtained. INTERPRETATION: 1. The right lower extremity common femoral artery is widely patent and runs off into a partially stenotic but mostly patent profunda artery with good collateralization to the below-knee posterior tibial and anterior tibial arteries. There is no flow through the chronically occluded right superficial femoral artery and popliteal artery although the popliteal artery does reconstitute for about 2 cm through the central portion with collateral circulation. The origin of all 3 tibial arteries are chronically occluded and they reconstitute about 4-5 cm from the origin from the profunda collaterals. Both the anterior tibial artery and posterior tibial artery runoff to the foot. 2. After angioplasty of the popliteal artery and SFA, there was still limited flow due to heavy plaque and near occlusions. We therefore stented from the proximal popliteal artery to the origin of the SFA and post dilated. This provided widely patent flow, but there was no outflow. Without sufficient outflow, the SFA and popliteal stents will not remain patent. 3. Although we were unable to access the origin of any of the 3 tibial vessels and could not provide tibial outflow, we are hopeful that we would be able to do a retrograde access from the posterior tibial or anterior tibial or both and provide in-line flow. REPORT OF OPERATION: Patient was brought to the angiographic suite in stable condition and placed supine on the fluoroscopic table. His bilateral groins were prepped and draped in a sterile fashion. A timeout was performed. Sedation was administered without complication. The patient's blood glucose preprocedure was greater than 410 units of regular insulin was given in addition to the Versed and fentanyl sedation. We will recheck an Accu-Chek at the end of the case. Ultrasound was used to guide access a microneedle to the left common femoral artery. A wire was passed through this access under fluoroscopic guidance and the needle was removed. The micro-sheath was placed over the wire using a Seldinger technique and a wire was exchanged for a Glidewire. This was advanced into the aorta under fluoroscopic guidance and the sheath was exchanged for 6 Japanese sheath. Unfortunately, there is so much scarring in the left groin that we cannot easily advanced the sheath therefore an 8 dilator was first passed over the wire into the vessel and then the 6 Japanese sheath was placed and flushed with saline. We went up and over the bifurcation with an Omni flushed catheter in the Glidewire. We noted that the bifurcation was extremely narrow and peaked, and it was difficult to traverse. We eventually were able to navigate the catheter into the common femoral artery and right lower extremity arteriograms were performed. Should we need to do a femoropopliteal bypass the patient has a suitable distal target at the anterior tibial or the posterior tibial arteries at the ankle. He does not have suitable popliteal flow for a bypass. The origins of all 3 tibials are occluded, thus a distal bypass would be preferred. We did discuss with the patient that we would try to cross his chronic total occlusion if possible, and therefore we advanced a Glidewire into the profunda and exchanges sheath for 45 cm 6 Japanese sheath. This was flushed with saline. I then carefully navigated into the 1 cm of patent proximal SFA and began the arduous task of crossing the occlusion in the SFA and popliteal arteries. After an extensive period time and multiple catheter and wire changes, we were eventually able to cross over through to the seminole popliteal artery. We confirmed we're in the true lumen with a quick contrast injection at the knee. We then initially tried to get access to either the peroneal, posterior tibial, or anterior tibial artery, but were were not able to really give this a good effort due to the steep bifurcation affecting our pushability of the wires and catheters and the occlusion affecting our ability to navigate the catheters. Therefore, we elected to angioplasty and stent the SFA and popliteal artery first. We predilated the entire length with a 4 x 100 [place] balloon and then angioplasty with a 6 x 200 [place] balloon from the SFA to the Dannie's canal. Following this, we still did not have great flow through the SFA or popliteal and we stented from the proximal popliteal to the origin of the SFA with 2 (6 x 150 cm stents) distal and mid and a 7 x 100 stent proximally. These were post dilated with a 6 x 200 balloon. We also post dilated the popliteal artery with the 4 x 100 balloon. Following this, there was flow through to the distal popliteal artery, but no significant outflow. We attempted to cross from popliteal artery into the origin of all 3 tibial vessels. Unfortunately, there is about a 3 cm chronic total occlusion of each of the tibials, and we were not able to access any of the 3 despite aggressive attempts with multiple wires and catheters. We spent an extensive amount of time trying to cross into any of the tibial vessels, but were ultimately unsuccessful. There wasn't enough collateral outflow or in-line flow in my opinion to keep the popliteal artery and SFA open after angioplasty and stenting. I discussed with the patient the option to bring him back tomorrow and try to cross from below with the tibial access. He is agreeable to this. We will plan to bring him back tomorrow and attempt to cross from below. We will give him Plavix postprocedure today and hopefully he has enough collateral outflow to keep this open until tomorrow. This concluded our procedure for today. The sheath was exchanged for a short 6 Japanese sheath over the wire and the sheath was flushed with saline. A Mynks closure device was deployed with good hemostasis and pressure was held for 10 minutes and the patient was taken back to recovery in stable condition. ESTIMATED BLOOD LOSS: Approximately 10 mL. COMPLICATIONS: None. PLAN: The patient does not have adequate outflow to support the now open SFA and popliteal artery flow. We need at least one tibial vessel outflow and could not cross any of them once we opened the SFA and popliteal. We will bring the patient back for an attempt to cross from tibial access through the DP or the posterior tibial at the ankle. Both vessels are patent, and perhaps we would be able to cross in a retrograde fashion. Otherwise, the patient will need a femoral distal bypass, and this is very high risk for failure in him since he is still smoking. We have counseled him again extensively about smoking cessation. Further recommendations to follow. He should stay on the Plavix and resume all home medications. URVASHI HERRERA MD Mar 20, 2019 11:39
[2019-03-20 14:40] VITALS: BP 148/76
== END ==
LOC: M IRPRO 06:47
PROVIDERS: ATTEND Surgery Vascular Surgery
DX: I70.211 Atherosclerosis of native arteries of extremities with intermittent claudication, right leg (principal); I70.92 Chronic total occlusion of artery of the extremities
CPT/HCPCS: 37226; 75710; 80048; 85027; 99152; 99153; C1725; C1760; C1769; C1876; C1887; C1894; J2250; J3010; Q9967

== ENCOUNTER → 2019-03-21 | Outpatient (CLI) | payer OTHER ==
[~2019-03-21] MED LIST changes: +ALTEPLASE 2 MG/2 ML VIAL (J2997 PER 1MG) As Ordered ONE; -CLOPIDOGREL 75 MG TAB PO ONE; -ELIQ5TAB PO; -EZET10TA21 PO; +PERCOCET 5MG/325MG TAB PO ONE; +diazePAM 5 MG TAB As Ordered ONE; +diazePAM 5 MG TAB PO ONE
--- NOTE | 2019-03-21 10:16 | ROOPDOC ---
[facility] Report Of Operation Report of Operation DATE OF PROCEDURE: 03/21/19 PREPROCEDURE DIAGNOSES: Atherosclerosis of the ewiiaapaayp arteries with lifestyle limiting claudication POSTPROCEDURE DIAGNOSES: Same PROCEDURE: 1. Ultrasound-guided access right dorsal pedis artery, retrograde 2. Arteriogram anterior tibial artery retrograde 3. Attempt to cross chronic total occlusion origin anterior tibial artery, aborted 4. Ultrasound-guided access right posterior tibial artery, retrograde 5. Cross chronic total occlusion right posterior tibial artery origin and angioplasty with 3 x 100 Arash balloon 6. Angioplasty common femoral and origin of SFA was 7 x 100 Harvey balloon 7. TPA administration across SFA stent, 8 mg 8. Completion arteriograms right lower extremity 9. Manual pressure closure at dorsal pedis and posterior tibial arterial access sites SURGEON: Urvashi Herrera MD ANESTHESIA: Local anesthesia with 2 mL lidocaine. Monitored intravenous conscious sedation was administered by Dr. Herrera. The patient was independently monitored by registered nurses sign of the department of radiology using automated blood pressure, EKG, pulse oximetry. The details sedation record is presently house in the hospital information system. The following a brief sedation record: Start time 07:55, stop time 09 37, Versed 3 mg, fentanyl 175 g, heparin 6000 units, regular insulin 8 units subcutaneous. INDICATION FOR PROCEDURE: Mr. Arteaga is a very pleasant 53-year-old gentleman with lifestyle limiting claudication and can no longer work due to pain in his right leg with ambulation. Yesterday the patient underwent revascularization of his occluded SFA and popliteal arteries, and our plan was to cross that an open it and then get through at least one of his tibial artery origins for her outflow. Unfortunately, we could not antegrade cross any of the tibials despite aggressive efforts. I told the patient that we could bring him back today for one more try from retrograde tibial access. Risks benefits and alternatives were explained and he was agreeable to proceed. If we are not able to open up in-line tibial flow, the revascularization of this SFA will not remain successful. It will thrombosed due to limited outflow. We will then be required to go ahead with a femoral distal bypass, which is high risk for failure in the patient who is still smoking. After lengthy discussion the patient was agreeable to proceed. INTERPRETATION: 1. The anterior tibial artery is patent to the proximal calf where it occludes and there are extensive collaterals leading back to the popliteal artery but no in-line flow, and we were not able to cross through into the popliteal spread aggressive efforts. This was aborted. 2. The posterior tibial artery occludes in the mid calf and we were able to cross the occlusion into the popliteal which was confirmed with a quick injection of contrast. Following this, we were able to successfully angioplasty direct flow from the popliteal into the posterior tibial artery with a 3 x 200 Arash balloon. Multiple inflations were done along the length of the vessel for 3 minutes each. 3. There is stagnant flow and a small amount of thrombus in the SFA and popliteal stents from yesterday, and 8 mg of TPA was administered with resolution of the thrombus. 4. There was questionable inflow into the SFA, likely due to no outflow but we felt it was worthwhile to angioplasty from the common femoral through the origin of the SFA to make sure there was no stenosis. Following this, the vessel was n oted to be widely patent while pulling the catheter back through the vessel while injecting contrast, but the flow was still stagnant likely due to limited outflow. Sometimes the sheath within the small tibial vessel occludes outflow, and since he only has single vessel runoff, this may be affecting his outflow. We did not see any stenosis from the origin of the SFA down through the posterior tibial artery, and therefore we concluded our procedure. At this point, the patient will either have flow through the posterior tibial artery into the foot, or we will need to provide him with a from distal bypass to restore flow. He still has collateral circulation from his profunda, but it is not enough for long-term limb preservation. REPORT OF OPERATION: A she was brought to the angiographic suite in stable condition. His bilateral groins and his right foot and leg were prepped and draped in a sterile fashion. A timeout was performed. Sedation was ministered without complication along with 8 units of insulin for an Accu-Chek greater than 300. We then proceeded to gain access to the dorsal pedis artery in a retrograde fashion with a microneedle under ultrasound guidance. A wire was passed through this access under fluoroscopic guidance the needle was removed. A micro-sheath was placed and flushed with saline. An arteriogram was performed and we found patent inflow to the proximal aspect of the artery word occluded. We then attempted to cross this with a V 18 wire, but it selected the collaterals exclusively. We then selected and angled Glidewire and angled catheter to try to direct through the occlusion towards the popliteal artery, but we were not able to cross despite aggressive attempts. We then changed over to the posterior tibial artery. Ultrasound was used to guide access with a microneedle and a wire was passed through this access retrograde into the posterior tibial artery under fluoroscopic guidance. A micro-sheath was placed and flushed with saline. Arteriogram confirmed occlusion of the posterior tibial artery in the mid calf. We were able to navigated Glidewire up through this occlusion into the popliteal artery with a crossing catheter. We confirmed we were in the true lumen of the popliteal artery with a quick contrast injection and then we navigated R wire and catheter to the proximal common femoral artery. We did not see flow through the artery and by pulling the catheter back we noted there was a small amount of thrombus within the SFA popliteal stents placed yesterday, due to no outflow. TPA 8 mg was administered throughout the stents. We then placed an O18 wire and 3 x 220 Arash balloon across the occlusion into the popliteal artery and angioplasty for three-minute inflations. A second angioplasty was done slightly distal to this for another three-minute inflations. Following this there was in- line flow through the posterior tibial artery. We still did not have great inflow from the common femoral, and I was worried there may be a residual stenosis at the origin of the SFA, psoas 7 x 100 Harvey balloon was advanced across the origin and an angioplasty was performed for 3 minutes and following this, there is widely patent flow through the origin, but there still was not outflow through to the tibial. Injection of contrast was done throughout the stents in the SFA and through the popliteal artery and posterior tibial artery and no obvious signs of outflow stenosis were noted. At this point I felt likely sheath in place was obstructing her outflow and until this was removed we would not know if the patient would have in-line flow to the foot. We therefore removed that sheath at the dorsal pedis and posterior tibial arteries and pres sure was held for 10 minutes gently for good hemostasis. Following this, the patient was taken to recovery in stable condition. We will see how his foot looks over the next few hours to make a decision for intervention based on results. I have let him know that this is as much as we can do endovascularly, and after this he will require open surgery if more revascularization as needed. He is agreeable to this plan. ESTIMATED BLOOD LOSS: Approximately 5 mL. COMPLICATIONS: None. Plan: Our plan is to see how the patient does over the next few hours and if his perfusion is intact. If not, we will discuss options for open surgery. I do not feel more endovascular intervention is likely to be successful and he will likely need a from distal bypass, which will be very tenuous in this patient who has profound proximal and distal end stage vascular disease, and no option for her popliteal bypass due to severe disease in the popliteal and proximal tibials. Even after angioplasty of the popliteal artery, it is a poor choice for target due to the history of occlusion and disease. He also has such limited outflow due to severe tibial disease. His best option is a distal bypass, although this will be very tenuous in a patient who is actively smoking and likely to fail. He has a risk for limb loss and I have expressed this to him. URVASHI HERRERA MD Mar 21, 2019 10:16
[2019-03-21 14:30] VITALS: BP 174/84
== END ==
LOC: M IRPRO 07:04
PROVIDERS: ATTEND Surgery Vascular Surgery
DX: I70.211 Atherosclerosis of native arteries of extremities with intermittent claudication, right leg (principal); I70.92 Chronic total occlusion of artery of the extremities
CPT/HCPCS: 37184; 37224; 37228; 75710; 99152; 99153; C1725; C1769; C1887; C1894; J2250; J2997; J3010; Q9967

== ENCOUNTER → 2019-03-30 | Outpatient (CLI) | payer OTHER ==
[~2019-03-30] MED LIST changes: -ALTEPLASE 2 MG/2 ML VIAL (J2997 PER 1MG) As Ordered ONE; -CLOPIDOGREL 75 MG TAB As Ordered ONE; +EZET10TA21 PO; -HEPARIN 1,000 UNITS/ML 10ML VIAL (FOR RADIOLOGY& DIALYSIS ONLY) As Ordered ONE; -HumuLIN R (REGULAR) INSULIN (NovoLIN R) **100U/ML** PER UNIT SQ ONE; -ISOVUE-300 61% 50ML VIAL (Q9967) As Ordered ONE; -LIDOCAINE 1% MDV 20ML VIAL As Ordered ONE; -MIDAZOLAM INJ 2 MG/2 ML VIAL (J2250) As Ordered ONE; -PERCOCET 5MG/325MG TAB PO ONE; -diazePAM 5 MG TAB As Ordered ONE; -diazePAM 5 MG TAB PO ONE; -fentaNYL 100 MCG/2 ML INJECTION (J3010) As Ordered ONE
--- NOTE | 2019-03-30 12:34 | REP ---
Bilateral lower extremity duplex venous ultrasound: Vein mapping study. History: Atherosclerosis. Intermittent claudication. Encounter for preprocedural examination. Findings: There is no evidence of deep venous thrombosis. There is a collateral vein off the greater saphenous vein proximally on the right. Superficial system vein diameter chart: Proximal greater saphenous vein: Right 3.2 mm, left 5.3 mm Mid side greater saphenous vein: Right 3.0 mm, left 2.8 mm Distal thigh greater saphenous vein: Right 2.5 mm, left 3.0 mm Proximal calf greater saphenous vein: Right 2.0 mm, left 1.5 mm Midcalf greater saphenous vein: Right 2.0 mm, left 2.2 mm Distal calf greater saphenous vein: Right 2.0 mm, left 1.7 mm Proximal calf lesser saphenous vein: Right 2.7 mm, left 1.7 mm [place]calf lesser saphenous vein: Right 1.7 mm, left 2.2 mm Distal calf lesser saphenous vein: Right 2.0 mm, left 1.8 mm Electronically Signed by Surinder Plummer MD 03/30/2019 12:25 P
== END ==
LOC: M RAD 11:06
PROVIDERS: ATTEND Surgery Vascular Surgery
DX: I70.221 Atherosclerosis of native arteries of extremities with rest pain, right leg (principal)

== ENCOUNTER → 2019-03-30 | Outpatient (CLI) | payer OTHER ==
[2019-03-30 11:09] LABS: HEMATOCRIT 45.3 % (42.0-52.0); MEAN CORPUSCULAR HEMOGLOBIN 28.1 pg (27.0-33.0); MEAN CORPUSCULAR HGB CONC 33.1 g/dl (32.0-36.5); MEAN CORPUSCULAR VOLUME 84.8 fl (80.0-96.0); PLATELET COUNT, AUTOMATED 345 10^3/uL (150-450); RED BLOOD COUNT 5.34 10^6/uL (4.30-6.10); WHITE BLOOD COUNT 11.6 10^3/uL (4.0-10.0)
[2019-03-30 11:40] LABS: BLOOD UREA NITROGEN 13 MG/DL (7-18); CARBON DIOXIDE LEVEL 29 MEQ/L (21-32); CHLORIDE LEVEL 97 MEQ/L (98-107); GLOMERULAR FILTRATION RATE > 60.0 (>56); GLUCOSE, FASTING 312 MG/DL (70-100); POTASSIUM SERUM 3.9 MEQ/L (3.5-5.1); SODIUM LEVEL 135 MEQ/L (136-145)
== END ==
LOC: M LAB 10:17
PROVIDERS: ATTEND Physician Assistant
DX: Z01.818 Encounter for other preprocedural examination (principal)

== ENCOUNTER 2019-03-31 10:00 | Inpatient (IN) | payer OTHER ==
[~2019-03-31] VITALS: Ht 167.6 cm; Wt 81.3 kg
[~2019-03-31 10:00] MED LIST changes: +LR 1,000 ML IV ONE; +ceFAZolin SOD 2 GM in IV 1 EA IV ONE
[2019-03-31] MEDS ORDERED: MORPHINE 2 MG/ML 1ML VIAL (J2270) IV PRN (16:15)
[2019-03-31] MEDS ORDERED: diazePAM 5 MG TAB PO PRN (16:15)
[2019-03-31] MEDS: PERCOCET 5MG/325MG TAB PO PRN ×2 (16:30→22:44)
--- NOTE | 2019-03-31 16:31 | CR.PDOC ---
General Date of Consultation: Mar 31, 2019 Attending Physician: MARIANELA GIORDANO MD Consultation REASON FOR CONSULTATION/CHIEF COMPLAINT: PVD with rest pain RLE HISTORY OF PRESENT ILLNESS: Mr Arteaga is a very pleasant 53-year-old gentleman with severe end-stage peripheral vascular disease. He underwent an attempt at endovascular revascularization of his right lower extremity for very short distance claudication with a long recovery time, and starting to progress to rest pain. He had a known occlusion of his superficial femoral artery, popliteal artery, and proximal tibial vessels. We were able to cross through the superficial femoral artery and popliteal artery and open these vessels with angioplasty and stenting, but we were not able to cross antegrade across the tibials. We then brought the patient back a second day and we were able to cross retrograde through the posterior tibial artery from a distal posterior tibial artery retrograde access but we were not able to cross through the anterior tibial artery from a distal DP retrograde axis. Despite getting in-line flow from the common femoral through to the posterior tibial artery, we still did not have good flow to the foot. I suspect there is some microvascular disease distal to her revascularization. The patient returned to clinic with ongoing complaints of right lower extremity short distance claudication progressing to rest pain. I discussed with him despite the high risk involved with a distal bypass in a patient who is active smoker, we are out of endovascular options for intervention and limb salvage. Unfortunately distal bypasses have a dismal prognosis in patients who smoke and use tobacco and nicotine products, but I wo rry the patient is at risk for limb loss without intervention. At this point, my plan is to perform a common femoral endarterectomy on the right, and open up inflow into the origin of the superficial femoral artery if there is any residual stenosis at the edge of the proximal SFA stent. I then plan to open up the posterior tibial artery at the ankle and see if there is any distal disease I can prove upon to allow outflow into the foot. If necessary we can also perform a thrombectomy of any clot that has accumulated due to distal outflow limitations. If I cannot restore any kind of out flow through the posterior tibial artery, we will plan on doing a femoral to dorsal pedis bypass. The origin of all 3 tibials is chronically occluded except for the posterior tibial but if it does have outflow it is not suitable for bypass. We would be better to do at the distal bypass wherever we have patency and flow. If I'm able to restore flow with a femoral endarterectomy and posterior tibial endarterectomy we may hold off on doing a bypass at this time. We will see how the perfusion looks. He may need an arteriogram and other intervention as well. His saphenous vein is not ideal, but it still may be the best conduit for distal bypass as a large diameter gortex bypass generally does not stay patent when anastomosed to a tiny tibial vessel. The patient and his were extensively counseled about the high risk of limb loss in the high risk of bypass failure, especially if the patient continues to smoke. He is trying very hard to cut back and I gave him a lot of encouragement about this. He is down to 6 or 7 cigarettes a day. We will continue to encourage him towards smoking cessation. I did discuss with him that we would not be using a nicotine replacement products while he was in the hospital and he is understanding of the need to abstain from all nicotine in order to try to restore flow to the foot. ALLERGIES: Please see below. HOME MEDICATIONS: Please see below. PAST MEDICAL HISTORY: Hypertension, diabetes, hypercholesterolemia, atherosclerosis of the cantwell vessels with claudication and rest pain PAST SURGICAL HISTORY: Multiple lower extremity angiograms and interventions, removal of a cyst 2010 FAMILY HISTORY: Hypertension and heart disease SOCIAL HISTORY: Patient is a current active smoker although he is trying to cut down. Occasional alcohol, denies illicit drug use. REVIEW OF SYSTEMS: CONSTITUTIONAL: Denies fevers or chills HEENT: Denies acute vision change CARDIOVASCULAR: Denies palpitations or chest pain RESPIRATORY: Denies cough or hemoptysis. GENITOURINARY: Denies dysuria MUSCULOSKELETAL: Positive claudication and rest pain GASTROINTESTINAL: Denies nausea vomiting diarrhea SKIN: Denies rashes NEUROLOGICAL: Denies headaches or seizures PSYCHIATRIC: Denies anxiety depression ENDOCRINE: Positive diabetes HEMATOLOGIC/LYMPHATIC: Positive easy bruising ALLERGIC/IMMUNOLOGIC: Denies PHYSICAL EXAMINATION: VITAL SIGNS: Please see below. GENERAL APPEARANCE: Medically stable HEENT: Normocephalic TMI RESPIRATORY: Slightly coarse breath sounds bilaterally no wheezes CARDIOVASCULAR: Regular rate and rhythm ABDOMEN: Soft nontender nondistended EXTREMITIES: Warm with brisk cap refill, monophasic signals right DPPT, biphasic signals left DPPT NEUROLOGICAL: Alert and oriented 3 moves all extremities equally PSYCHIATRIC: Pleasant and cooperative LABORATORY DATA: Please see below. ASSESSMENT/PLAN: Very pleasant 53-year-old gentleman with profound right lower extremity peripheral vascular disease, short distance claudication, progressing to rest pain 1. Plan tomorrow for heroic attempt at revascularization right lower extremity for end-stage vascular disease. Tentatively, we plan a right common femoral endarterectomy, posterior tibial endarterectomy, thrombectomy if needed, arterio gram and intervention if needed, possible femoral to distal tibial bypass. 2. Nothing by mouth after midnight, Ancef 2 g on hold for OR, hold Plavix, no nicotine patches or nicotine replacement. 3. Analgesia when necessary. We appreciate the opportunity to participate in the care of this patient. Allergies Coded Allergies: No Known Allergies (Unverified , 03/30/19) Home Medications Scheduled Aspirin (Ecotrin) 81 Mg Tablet.dr, 81 MG PO DAILY, (Reported) Atorvastatin Calcium (Atorvastatin Calcium) 40 Mg Tab, 40 MG PO QHS, (Reported) Clopidogrel Bisulfate (Clopidogrel) 75 Mg Tab, 75 MG PO QHS, (Reported) Ezetimibe (Ezetimibe) 10 Mg Tablet, 10 MG PO DAILY, (Reported) Glipizide (Glipizide ER) 10 Mg Tab, 20 MG PO QHS, (Reported) Lisinopril (Lisinopril) 20 Mg Tab, 20 MG PO QHS, (Reported) Metoprolol Succinate (Metoprolol Succinate) 25 Mg Tab, 25 MG PO QHS, (Reported) URVASHI MANCINI MD Mar 31, 2019 16:31
[2019-03-31] MEDS ORDERED: GLUCOSE 4 GM CHEW TABLET PO PRN (16:45)
[2019-03-31] MEDS ORDERED: GLUCAGON FOR INJ 1 MG VIAL (J1610) SC PRN (16:45)
[2019-03-31] MEDS ORDERED: DEXTROSE 50% 50 ML SYRINGE IV PRN (16:45)
[2019-03-31 17:00] VITALS: BP 159/87
--- NOTE | 2019-03-31 17:06 | HPEPDOC ---
[facility] Medical History & Physical Date of Admission Mar 31, 2019 Date of Service: Mar 31, 2019 Attending Physician: MARIANELA GIORDANO MD History and Physical CHIEF COMPLAINT: Claudication HISTORY OF PRESENT ILLNESS: 53-year-old male, past medical history of coronary artery disease status post cardiac stent, severe peripheral vascular disease, status post multiple arterial stents, hypertension, hyperlipidemia, diabetes mellitus, active smoker, is being admitted for right common from oral endarterectomy and posterior distal endarterectomy. 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 Patient is otherwise without any complaints, denies any shortness of breath, chest pain, nausea, vomiting, abdominal pain or diarrhea at this time. Patient was initially studied for surgery today, due to scheduling will undergo the procedure tomorrow. 10 point review of system is negative except for above PAST MEDICAL HISTORY: 1. Coronary artery disease. 2. Peripheral vascular disease. 3. Hypertension. 4. Diabetes mellitus. 5. 5. Hyperlipidemia PAST SURGICAL HISTORY: 1. Vascular stents. 2. Coronary stents. 3. Abdominal wall cyst removal. SOCIAL HISTORY: Current smoker. Denies alcohol. Denies drug use FAMILY HISTORY: Father with heart disease ALLERGIES: Please see below. HOME MEDICATIONS: Please see below. PHYSICAL EXAMINATION: VITAL SIGNS: Please see below. GENERAL: No distress HEENT: Normocephalic, atraumatic, moist mucous membranes NECK: Supple CARDIOVASCULAR EXAMINATION: S1, S2, systolic murmur appreciated RESPIRATORY EXAMINATION: Clear to auscultation, no wheezing ABDOMINAL EXAMINATION: Soft, nontender, nondistended, positive bowel sounds EXTREMITIES: Range of motion intact SKIN: No rash NEUROLOGICAL EXAMINATION: Alert and oriented 3, no focal deficits PSYCHIATRIC EXAMINATION: Calm and cooperative LABORATORY DATA: See below. MICROBIOLOGY: Please see below. ASSESSMENT: 53-year-old vasculopath being admitted for aggressive intravascular surgical intervention in hopes to prevent amputation. PLAN: 1. Peripheral vascular disease with short distance claudication. Scheduled for right common femoral endarterectomy, posterior tibial endarterectomy with possible bypass. Holding Plavix, pain control, nothing by mouth after midnight, hold DVT prophylaxis tomorrow morning. Vascular surgery on board 2. Hypertension. Continue home meds with hold parameters 3. Diabetes mellitus. Hold glipizide, sliding scale insulin with fingersticks before meals and at bedtime 4. Hyperlipidemia. Continue atorvastatin DVT prophylaxis: Heparin subcutaneous GI prophylaxis: Not needed Vital Signs Vital Signs Date Time Temp Pulse Resp B/P (MAP) Pulse Ox O2 Delivery O2 Flow Rate FiO2 03/31/19 16:30 18 Laboratory Data Labs 24H Laboratory Tests 2 03/31/19 16:51: Bedside Glucose (Misc Panel) 265H Home Medications Scheduled Aspirin (Ecotrin) 81 Mg Tablet.dr, 81 MG PO DAILY Atorvastatin Calcium (Atorvastatin Calcium) 40 Mg Tab, 40 MG PO QHS Clopidogrel Bisulfate (Clopidogrel) 75 Mg Tab, 75 MG PO QHS Ezetimibe (Ezetimibe) 10 Mg Tablet, 10 MG PO DAILY Glipizide (Glipizide ER) 10 Mg Tab, 20 MG PO QHS Lisinopril (Lisinopril) 20 Mg Tab, 20 MG PO QHS Metoprolol Succinate (Metoprolol Succinate) 25 Mg Tab, 25 MG PO QHS Allergies Coded Allergies: No Known Allergies (Unverified , 03/30/19) A-FIB/CHADSVASC A-FIB History Current/History of A-Fib/PAF?: No MARIANELA GIORDANO MD Mar 31, 2019 17:06
[2019-03-31] MEDS: HumaLOG INSULIN (NovoLOG) PER UNIT SC SCH ×2 (17:54→21:35)
[2019-03-31] MEDS: ATORVASTATIN 20 MG TAB PO SCH (21:32)
[2019-03-31] MEDS: HEPARIN SOD (PORCINE) 5000 UNITS/ML VIAL SC SCH (21:32)
[2019-03-31] MEDS: LISINOPRIL 20 MG TAB PO SCH (21:32)
[2019-03-31] MEDS: METOPROLOL SUCC *XL* 25MG TAB (TopROL *XL*) PO SCH (21:33)
[2019-03-31 22:00] VITALS: BP 145/85
[2019-04-01 05:55] LABS: MEAN CORPUSCULAR HEMOGLOBIN 28.1 pg (27.0-33.0); MEAN CORPUSCULAR HGB CONC 33.3 g/dl (32.0-36.5); MEAN CORPUSCULAR VOLUME 84.2 fl (80.0-96.0); PLATELET COUNT, AUTOMATED 338 10^3/uL (150-450); RED BLOOD COUNT 4.99 10^6/uL (4.30-6.10); WHITE BLOOD COUNT 11.8 10^3/uL (4.0-10.0)
[2019-04-01 06:00] VITALS: BP 164/86
[2019-04-01] MEDS ORDERED: ceFAZolin SOD 2 GM in IV 1 EA IV ONE (06:00)
[2019-04-01 06:18] LABS: ALBUMIN 2.4 GM/DL (3.2-5.2); ALT/SGPT 15 U/L (12-78); BILIRUBIN,TOTAL 0.3 MG/DL (0.2-1.0); BLOOD UREA NITROGEN 11 MG/DL (7-18); CALCIUM LEVEL 8.5 MG/DL (8.5-10.1); CARBON DIOXIDE LEVEL 29 MEQ/L (21-32); CHLORIDE LEVEL 98 MEQ/L (98-107); CREATININE FOR GFR 0.53 MG/DL (0.70-1.30); GLOMERULAR FILTRATION RATE > 60.0 (>56); GLUCOSE, FASTING 288 MG/DL (70-100); MAGNESIUM LEVEL 1.7 MG/DL (1.8-2.4); POTASSIUM SERUM 3.7 MEQ/L (3.5-5.1); SODIUM LEVEL 134 MEQ/L (136-145); TOTAL PROTEIN 7.5 GM/DL (6.4-8.2)
[2019-04-01] MEDS: HEPARIN SOD (PORCINE) 5000 UNITS/ML VIAL SC SCH (07:24)
[2019-04-01] MEDS: HumaLOG INSULIN (NovoLOG) PER UNIT SC SCH ×4 (07:30→21:42)
[2019-04-01] MEDS ORDERED: BUPIVACAINE/EPIN 0.25% 30 ML VIAL As Ordered ONE (09:12)
[2019-04-01] MEDS ORDERED: HEPARIN SOD (PORCINE) 5000 UNITS/ML VIAL As Ordered ONE ×8 (09:12→19:06)
--- NOTE | 2019-04-01 09:31 | IPNPDOC ---
Date Seen The patient was seen on 04/01/19. Progress Note Pt seen and examined this morning in PACU. We discussed again that the goal of this procedure is to get him out of constant pain, and hopefully increase his distance for ambulation before claudicating. I do not think we can fully alleviate all of his symptoms, as his vascular insufficiency is too far progressed at this point and he has failed multiple attempts at revascularization already. We will expect some blood loss as pt has been on plavix up until Wednesday, but hopefully not excessive. Discussed with anesthesia pre-op, and will type and cross 2 units PRBC on hold prn. The pt is at risk for limb loss if revascularization fails, so our efforts will be extensive today, and he may require any number of interventions, including open surgery and endovascular, depending on what we find intraoperatively. The pt and I discussed this at length in clinic , yesterday at admission, and again this morning. VS, I&O, 24H, Fishbone Vital Signs/I&O Vital Signs Date Time Temp Pulse Resp B/P (MAP) Pulse Ox O2 Delivery O2 Flow Rate FiO2 04/01/19 06:00 98.9 100 18 164/86 (112) 98 Room Air I&O- Last 24 Hours up to 6 AM 04/01/19 06:00 Intake Total 720 ml Output Total 500 ml Balance 220 ml Laboratory Data 24H LABS Laboratory Tests 2 03/31/19 16:51: Bedside Glucose (Misc Panel) 265H 03/31/19 20:53: Bedside Glucose (Misc Panel) 282H 04/01/19 05:41: Nucleated Red Blood Cells % (auto) 0.0, Anion Gap 7L, Glomerular Filtration Rate > 60.0, Calcium Level 8.5, Magnesium Level 1.7L, Total Bilirubin 0.3, Aspartate Amino Transf (AST/SGOT) 7, Alanine Aminotransferase (ALT/SGPT) 15, Alkaline Phosphatase 88, Total Protein 7.5, Albumin 2.4L, Albumin/Globulin Ratio 0.47L CBC/BMP Laboratory Tests 04/01/19 05:41 URVASHI MANCINI MD Apr 01, 2019 09:31
[2019-04-01] MEDS ORDERED: PROPOFOL 200 MG/20 ML VIAL As Ordered ONE (10:15)
[2019-04-01] MEDS ORDERED: ROCURONIUM BROMIDE 50 MG/5 ML VIAL As Ordered ONE ×5 (10:15→16:38)
[2019-04-01] MEDS ORDERED: ONDANSETRON 4MG/2ML VIAL (J2405) As Ordered ONE (10:15)
[2019-04-01] MEDS ORDERED: PHENYLephrine HCL 500 MCG/5 ML (100MCG/ML) SYRINGE (J2370) As Ordered ONE (10:15)
[2019-04-01] MEDS ORDERED: SUGAMMADEX SODIUM 500 MG/5 ML VIAL (BRIDION) As Ordered ONE (10:15)
[2019-04-01] MEDS ORDERED: dexameTHASONE 4 MG/ML 1ML VIAL (J1100) As Ordered ONE (10:15)
[2019-04-01] MEDS ORDERED: LABETALOL HCL 100 MG/20 ML VIAL As Ordered ONE (10:15)
[2019-04-01] MEDS ORDERED: ETOMIDATE INJ 20MG/10ML VIAL As Ordered ONE (10:15)
[2019-04-01] MEDS ORDERED: METOCLOPRAMIDE INJ 10MG/2ML VIAL (J2765) As Ordered ONE (10:15)
[2019-04-01] MEDS ORDERED: LIDOCAINE 2% INJ 100 MG/5 ML SDV (FOR ANES.) As Ordered ONE (10:15)
[2019-04-01] MEDS ORDERED: fentaNYL 250 MCG/5 ML INJECTION (J3010) As Ordered ONE ×4 (10:15→17:46)
[2019-04-01] MEDS ORDERED: MIDAZOLAM INJ 2 MG/2 ML VIAL (J2250) As Ordered ONE (10:15)
[2019-04-01] MEDS ORDERED: PHENYLEPHRINE INJ 10MG/ML VIAL (J2370) As Ordered ONE ×2 (10:33→16:27)
[2019-04-01] MEDS: MAG SULF 1GM/100ML (MAG RUN) 1 GM in IV 1 EA IV SCH ×2 (13:00→14:00)
[2019-04-01] MEDS ORDERED: POTASSIUM CHLORIDE 10 MEQ SR TABLET PO ONE (13:00)
[2019-04-01] MEDS ORDERED: ceFAZolin 1GM INJ (J0690 PER 500MG) As Ordered ONE ×2 (13:32→17:41)
[2019-04-01] MEDS ORDERED: HumuLIN R (REGULAR) INSULIN (NovoLIN R) **100U/ML** PER UNIT As Ordered ONE (13:51)
[2019-04-01] MEDS ORDERED: ISOVUE-300 61% 50ML VIAL (Q9967) As Ordered ONE ×2 (13:58→16:29)
[2019-04-01] MEDS ORDERED: DESFLURANE 240 ML INHALANT As Ordered ONE (15:10)
[2019-04-01] MEDS ORDERED: HEPARIN 25,000 UNITS/250 ML D5W BAG (100 UNITS/ML) As Ordered ONE (17:28)
[2019-04-01] MEDS ORDERED: ALTEPLASE 2 MG/2 ML VIAL (J2997 PER 1MG) XX ONE (18:00)
[2019-04-01] MEDS ORDERED: ACETAMINOPHEN 1000MG 100ML IV BTL (OFIRMEV) (J0131 PER 10MG) As Ordered ONE (18:36)
[2019-04-01] MEDS ORDERED: LIDOCAINE 2% MDV 20 ML VIAL As Ordered ONE (19:02)
[2019-04-01] MEDS ORDERED: HYDROmorphone HCL 2 MG/ML 1ML VIAL (J1170) IV PRN (19:45)
[2019-04-01] MEDS ORDERED: diazePAM 10 MG TAB PO PRN (19:45)
[2019-04-01] MEDS: HEPARIN DRIP 25,000 UNITS in IV 1 EA IV SCH (19:47)
--- NOTE | 2019-04-01 20:16 | ROOPDOC ---
[facility] Report Of Operation Report of Operation DATE OF PROCEDURE: 04/01/19 PREPROCEDURE DIAGNOSES: End stage right lower extremity peripheral vascular disease with short distance claudication and worsening rest pain POSTPROCEDURE DIAGNOSES: Same. PROCEDURE: 1. Right common femoral endarterectomy and profundoplasty with patch angioplasty 2. Right posterior tibial endarterectomy and plantar thrombectomy 3. Right femoral to distal posterior tibial bypass with in situ vein 4. Right saphenous vein bypass angioplasty with 3 x 220 Arash balloon 5. Right lower extremity arteriograms SURGEON: Padma Herrera MD ANESTHESIA: Gen. anesthesia and local. INDICATION FOR PROCEDURE: Mr. Artaega is a very pleasant 53-year-old patient with profound right lower extremity peripheral vascular disease that has progressed to short distance claudication and worsening rest pain despite multiple attempts at revascularization in the past. He continues to smoke despite our best efforts to encourage him to quit. I had a discussion with the patient that we would do everything we could to try to restore perfusion today, but I cannot make any promises regarding outcomes. We are hopeful that we will be able to restore and outflow to get him out of rest pain and possibly increase his ambulation distance. My plan going into surgery is to do a femoral endarterectomy and profundoplasty to increase flow into the collateral system, see if I can open up flow in the posterior tibial artery and the foot, and possibly do a femoral to distal posterior tibial bypass. No promises were given regarding outcomes as the patient's arterial perfusion is profoundly limited due to severe vascular disease. Risks benefits and alternatives were explained to the patient. He was agreeable to proceed. Informed consent was obtained. INTERPRETATION: 1. Initial arteriograms were performed to identify the branches in the in situ saphenous vein so we might cut down and clip them. 2. Additional arteriograms were performed and we identified a source of poor flow in the mid vein, and after identifying this we made a small cut down over the area and resected a small area of small thickened vein that have partially thrombosed. After performing an end-to-end anastomosis, there was rapid flow through the area, but distal outflow was limited. I felt it may improve flow to have an angioplasty of this suboptimal vein with a 3 x 220 Arash balloon, and following angioplasty there was definitely a more uniform size and flow through the vein. 3. Additional arteriograms were performed and we found rapid flow to the calf but there were still additional branches that became visible and these were also clipped. Following this, there was rapid flow down to the posterior tibial vessel. Unfortunately, despite attempting to open up flow to the plantar vessels in the foot, we had limited distal outflow through the plantar arteries and the main outflow for the vein was retrograde through the posterior tibial artery and then into collaterals. REPORT OF OPERATION: Mr. Arteaga is a very pleasant 53-year-old gentleman who was brought to the OR in stable condition. General anesthesia and antibiotics were administered without complication. His bilateral groins and right lower extremity were prepped and draped in a sterile fashion. A timeout was performed. An oblique incision was made over the right groin just distal to the inguinal ligament and carried down through subcutaneous tissues with Bovie cautery. Bridging veins were suture ligated and divided. Dissection continued down to the femoral sheath which was opened longitudinally over the femoral vessels. Care was taken to carefully skeletonized the common femoral artery in order to preserve any collateral vessels we encountered. Vesseloops were placed around the small vessels. Also, Vesseloops were placed around the circumflex, the SFA, and the profunda. Once we had exposed the femoral vessels and skeletonized proximally and distally within the incision, we also identified the greater saphenous vein and skeletonized this proximally and distally within the incision to its origin at the saphenofemoral junction. Next, we made an incision over the medial ankle longitudinally over the posterior tibial artery. We carried this down to the subcutaneous tissue with Bovie cautery. Sharp dissection was used to incise the fashion expose the posterior tibial artery and veins. We skeletonized the artery proximally and distally within the incision. Vesseloops were placed proximally and distally. 5000 units of heparin was given a lot of circulate. We returned to the right groin and a clamp was placed proximally on the external iliac artery and are Vesseloops were secured to gain hemostasis. A longitudinal arteriotomy was made and extended with the pot scissors. There was significant plaque and heavy calcified posterior plaque that was carefully endarterectomized. A profundoplasty was performed to provide greater flow to the profunda and the collateral circulation. 2 profunda branches were noted. Both were endarterectomized. Following this, we had good backbleeding from both profundus. Once we were satisfied with the endarterectomy, we anastomosis to a bovine carotid patch with 6-0 Prolene suture in a running fashion. Before the final sutures are placed, we flushed her inflow and outflow arteries and irrigated with heparinized saline. We then restored flow through the femoral vessels. There was an excellent pulse and strong triphasic signal at both profunda branches. Next, we returned to the posterior tibial artery. An additional heparin dose was given. We started checking ACTs, and found our heparin anticoagulation was a bit less therapeutic and we wanted. We were hoping for an ACT around 250, and we consistently had a CTs around 150-170. We continued to dose heparin 2000 units at a time up to 14,000 units and then started a heparin drip to better maintain anticoagulation. A total of 15,000 units of heparin and 2 hours of heparin drip at 1200 units an hour was given during the 8 hour case. At the posterior tibial artery, bulldogs were placed proximally and distally in the Vesseloops were removed. A transverse incision was made on the artery and at #2 Rupa was passed proximally and no significant thrombus was retrieved, and then placed distally into the plantar vessel, and only a small amount of thrombus was retrieved. No significant thrombus was noted in either direction. There was good backbleeding from above, but no significant backbleeding from the foot. We irrigated with heparinized saline and 2 interrupted Prolene sutures were placed to close the arteriotomy. Next, we placed a right angle clamp across the saphenofemoral junction on the common femoral vein. A 5-0 Prolene suture was used under the clamp and a mattress fashion to gain hemostasis before placing a bulldog, the saphenous vein and using an 11 blade to excise it from the right angle clamp. We then removed the right angle clamp and oversewed the femoral vein with good hemostasis. The greater saphenous vein was inverted and the valves proximally were excised with the pot scissor. We then laced a clamp on the common femoral artery and resecured our Vessey loops increased it a 6 mm arteriotomy and anastomosed the end of the vein to the artery and and and decide fashion with 6-0 Prolene suture. Before the final sutures were placed, we flushed the inflow and outflow arteries and irrigated with heparinized saline. We then completed the anastomosis and found good hemostasis. A valvulotome was passed up to but not through our anastomosis while injecting heparinized saline and the valves were lysed. We did this a total of 2 times. We then injected contrast through the valvulotome to identify branches in the saphenous vein. Cutdowns were made over the branches and they were clipped. The flow through the distal vein was still sluggish. We knew from her preoperative vein mapping that the vein was not ideal, but it was much more suitable for distal bypass then a ring Sieper-Favian graft. I felt it might have improved flow with angioplasty and through the distal and a V 18 wire and 3 x 220 Arash balloon were advanced. Under fluoroscopy, we angioplastied the entire length of the vein. Following this there was a dramatic improvement in flow. We then resecured our bulldogs on the posterior tibial artery and created a 5 mm arteriotomy and anastomosed the distal end of the vein bypass to the artery and an end-to-side fashion with 6-0 Prolene suture. For the final sutures are placed, we flushed her inflow and outflow and irrigated with heparinized saline. There was good hemostasis after anastomosis. We then utilized a butterfly needle at the common femoral artery to perform completion arteriograms. Unfortunately, we still did not have good flow through the bypass. There was however good flow through the profunda into the small collateral system. There was an area in the mid thigh that appeared to be limiting flow, we made a small cut down over the vein in this area. It appeared there was a small amount of thrombus within the vein. It also. The vein was somewhat bruised, possibly from the valve lysis. Bulldogs were placed proximally and distally and this portion of the vein was excised in a beveled fashion and the 2 ends were reanastomosed and an end-to-end fashion with 6-0 Prolene suture. A suture was placed at each corner to prevent pursestring of the vessel. Before the final sutures are placed we irrigated with heparinized saline and flushed the inflow and outflow. Following this, there was a very good pulse proximal and distal to her new anastomosis. There was still not a great pulses at the ankle, and arteriogram showed there were new branches but had expanded with the increase flow. We then extended 2 of our previous branch incisions and identified the new branches and clipped these as well. Following this there was an excellent pulse in the distal bypass. We had rapid flow into the tibial vessel, but the main outflow was retrograde into the collateral system and not antegrade into the foot. 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 I felt it was worthwhile to see if a little bit of TPA into the plantar vessels might help open anything up, and 4 mg of tPA was injected through the posterior tibial artery towards the foot with a bulldog on the proximal posterior tibial artery in the bypass. This was then flushed with h eparinized saline. Unfortunately, it didn't seem to make a great deal of difference. I don't think the problem is thrombus, as we didn't retrieve much thrombus with thrombectomy of the plantar vessels, I think it is more due to chronic disease and plaque. This then concluded our procedure. All incisions were copiously irrigated with saline. The groin incision was closed in 4 layers of running Vicryl suture, and the deep dermal layer was approximated with interrupted 3-0 Vicryl suture and the skin was closed with ravindra. The thigh incisions were closed in 2 layers of running Vicryl suture and ravindra were used to close the skin. The cath and ankle incisions were closed in 1 layer of running Vicryl suture and skin ravindra were used to close the skin. All wounds were clean and dry. Xeroform gauze and Kerlix were used to dress the incisions on the leg and gauze and tape were used to dress the incision on the groin. The patient was then allowed to awaken from anesthesia and was taken to recovery in stable condition. ESTIMATED BLOOD LOSS: Approximately 400 mL. COMPLICATIONS: None. PLAN: Continue heparin drip per protocol. Keep right foot warm. Okay to DC Lanier in the morning and straight cath when necessary thereafter. Okay to resume diabetic diet. Okay for out of bed with assist. Okay to elevate the head of the bed. It is unclear if this additional perfusion provided today will improve his symptoms of short distance claudication and rest pain and clinically improve his foot. We will have to see how he does over the next 24-48 hours. I do not have options at this point for any additional vascular intervention. We have exhausted all options for reperfusion. PADMA HERRERA MD Apr 01, 2019 20:16
[2019-04-01] MEDS ORDERED: fentaNYL 100 MCG/2 ML INJECTION (J3010) IV PRN (20:30)
[2019-04-01] MEDS ORDERED: LR 1,000 ML IV SCH (20:30)
[2019-04-01] MEDS ORDERED: ONDANSETRON 4MG/2ML VIAL (J2405) IV PRN (20:30)
[2019-04-01 20:40] VITALS: BP 132/58
[2019-04-01 21:00] VITALS: BP 135/54
[2019-04-01] MEDS: METOPROLOL SUCC *XL* 25MG TAB (TopROL *XL*) PO SCH (21:00)
[2019-04-01] MEDS ORDERED: INSULIN IV RATE CHANGE DOCUMENTATION ML/HR XX SCH (21:00)
[2019-04-01] MEDS ORDERED: INSULIN HUMAN REGULAR 100 UNITS in NS 99 ML IV SCH ×4 (21:00)
[2019-04-01 21:30] VITALS: BP 131/58
[2019-04-01] MEDS: ATORVASTATIN 20 MG TAB PO SCH (21:41)
[2019-04-01] MEDS: LISINOPRIL 20 MG TAB PO SCH (21:41)
[2019-04-01 22:00] VITALS: BP 126/53
[2019-04-01 23:00] VITALS: BP 130/54
[2019-04-02] VITALS (16 sets, daily range): BP systolic 104–155; BP diastolic 42–83
[2019-04-02] MEDS: PERCOCET 5MG/325MG TAB PO PRN ×4 (00:39→21:02)
[2019-04-02] MEDS: HYDROmorphone HCL 2 MG/ML 1ML VIAL (J1170) IV PRN ×3 (02:15→09:51)
[2019-04-02] MEDS: HEPARIN SOD (PORCINE) 5000 UNITS/ML VIAL IV PRN ×4 (03:03→23:38)
[2019-04-02 05:40] LABS: HEMATOCRIT 33.4 % (42.0-52.0); MEAN CORPUSCULAR HEMOGLOBIN 28.4 pg (27.0-33.0); MEAN CORPUSCULAR HGB CONC 33.5 g/dl (32.0-36.5); MEAN CORPUSCULAR VOLUME 84.6 fl (80.0-96.0); PLATELET COUNT, AUTOMATED 301 10^3/uL (150-450); RED BLOOD COUNT 3.95 10^6/uL (4.30-6.10); WHITE BLOOD COUNT 21.4 10^3/uL (4.0-10.0)
[2019-04-02 05:45] LABS: HEMOGLOBIN 11.2 g/dl (13.5-17.5)
[2019-04-02 06:53] LABS: ALBUMIN 2.2 GM/DL (3.2-5.2); ALT/SGPT 25 U/L (12-78); BILIRUBIN,TOTAL 0.3 MG/DL (0.2-1.0); BLOOD UREA NITROGEN 8 MG/DL (7-18); CARBON DIOXIDE LEVEL 28 MEQ/L (21-32); CHLORIDE LEVEL 101 MEQ/L (98-107); CREATININE FOR GFR 0.44 MG/DL (0.70-1.30); GLOMERULAR FILTRATION RATE > 60.0 (>56); GLUCOSE, FASTING 237 MG/DL (70-100); MAGNESIUM LEVEL 1.5 MG/DL (1.8-2.4); PHOSPHORUS LEVEL 3.2 MG/DL (2.5-4.9); POTASSIUM SERUM 3.6 MEQ/L (3.5-5.1); SODIUM LEVEL 138 MEQ/L (136-145); TOTAL PROTEIN 5.8 GM/DL (6.4-8.2)
--- NOTE | 2019-04-02 08:33 | IPNPDOC ---
Text Note Date of Service The patient was seen on 04/02/19. NOTE Subjective: Patient seen and examined at bedside. No new medical complaints. Patient is s/p vascular surgical intervention. Denies chest pain, shortness of breath, abdominal pain, N/V/D. Objective: GENERAL: NAD, lying comfortably in bed HEENT: Normocephalic, atraumatic, moist mucous membranes NECK: Supple CARDIOVASCULAR EXAMINATION: +S1S2, systolic murmur RESPIRATORY EXAMINATION: CTA B/L ABDOMINAL EXAMINATION: soft, NT, +BS SKIN: No rash NEUROLOGICAL EXAMINATION: sensation intact throughout, strength grossly 5/5 b/l upper/lower extremities PSYCHIATRIC: AAOx3 LABORATORY DATA: See below. MICROBIOLOGY: Please see below. ASSESSMENT: 53-year-old male with extensive PMHx of vascular disease, admitted for aggressive intravascular surgical intervention in hopes to prevent amputation. PLAN: 1. Peripheral vascular disease with short distance claudication. s/p right common femoral endarterectomy, posterior tibial endarterectomy with bypass. on heparin gtt Vascular surgery f/u pending 2. Hypertension. Continue home meds with hold parameters 3. Diabetes mellitus. Hold glipizide, sliding scale insulin with fingersticks before meals and at bedtime 4. Hyperlipidemia. Continue atorvastatin 5. hypomagnesemia - continue to follow and replete as needed - today 2 IV mag runs Dispo: pending vascular surgery follow up; activity as per vascular; possible transfer to med/surg VS,Tanvir, I+O VS, Tanvir, I+O Laboratory Tests 04/02/19 05:29 04/02/19 05:43 Vital Signs Date Time Temp Pulse Resp B/P (MAP) Pulse Ox O2 Delivery O2 Flow Rate FiO2 04/02/19 06:15 97 21 143/55 (84) 97 Room Air 04/02/19 04:00 97.1 04/01/19 20:25 2 I&O- Last 24 Hours up to 6 AM 04/02/19 06:00 Intake Total 6378 ml Output Total 3025 ml Balance 3353 ml JANICE PETERSON MD Apr 02, 2019 08:33
[2019-04-02] MEDS: HumaLOG INSULIN (NovoLOG) PER UNIT SC SCH ×4 (09:34→21:10)
[2019-04-02] MEDS: MAG SULF 1GM/100ML (MAG RUN) 1 GM in IV 1 EA IV SCH ×2 (09:51→11:10)
[2019-04-02] MEDS: HEPARIN DRIP 25,000 UNITS in IV 1 EA IV SCH ×2 (11:10→23:39)
--- NOTE | 2019-04-02 15:41 | IPNPDOC ---
Date Seen The patient was seen on 04/02/19. Progress Note Patient seen and examined postoperative day one status post extensive limb salvage revascularization yesterday, including right common femoral endarterectomy and profundoplasty with patch angioplasty, right posterior tibial endarterectomy and plantar thrombectomy, right femoral posterior tibial distal bypass with in situ vein, revision of the in situ vein due to porting quality, and subsequent arteriograms and interventions to improve flow through the vein. He is sitting up in bed, just finished lunch, and seems to be doing well. His pain is controlled. He does have significant incisional postop pain, as expected, but he is receiving adequate analgesia. He has not been out of bed. His Lanier is still in place. We will work to getting the Lanier out and out of bed as previously ordered. He may need physical therapy and occupational therapy, but we will see how he does with weightbearing with assist. Per the nightmares, the patient said he would not quit smoking. When I talked to him today, he says he is trying very hard. I told him that 100% this bypass will fail if he continues to smoke and all of our efforts will be for nothing. He is at extremely high risk for limb loss, and we do not have other endovascular or open revascularization option should this fail. On exam, the patient has a warm and pink foot. He has a triphasic signal over the femoral posterior tibial bypass, biphasic signal over the dorsal pedis artery, and this is a significant improvement in both areas. I believe the dorsal pedis flow likely improved with profundoplasty and common femoral endarterectomy improving flow into the patient's collaterals that feed that vessel. Although there was somewhat limited plantar outflow from the posterior tibial and of the foot, what flow he had seems to be enough outflow to maintain the bypass. Likely he also still has a significant amount of the bypass flow go ing retrograde through the posterior tibial and then out through collaterals from there. He had a little bit of oozing overnight from the posterior tibial incision at the ankle, but all of the other incisions are clean and dry. All incisions were thoroughly cleaned, redressed with Xeroform and dry gauze, and the patient tolerated this well. The skin over the medial ankle near the posterior tibial incision is a little tenuous. This was the area of greatest ischemia preoperatively, and unfortunately it can be difficult to heal and incision in an area where the tissue had been ischemic. We will have to watch this closely, but so far is stable. Our plan is for the patient to continue with analgesia when necessary, to get out of bed with assist, for the Lanier to be removed and every 6 hours when necessary straight caths, and possibly transfer to PCU or the floor today per hospitalist recommendations. I think he is stable from a surgical standpoint. We will continue the heparin drip for now. He will need to go home on full anticoagulation instead of Plavix and we will likely convert him to oral anticoagulation tomorrow depending on the status of his revascularization. PTOT prn if he has trouble weightbearing or with ambulation with assist. Close monitoring of his incisions and daily dressing changes. We will plan to get him in the shower postop day 3. No nicotine supplementation or replacements. The patient cannot afford any vasoconstriction at this point. Distal bypasses are tenuous and we need as much vasodilation is possible. Hemoglobin is down from 14 to 11 postop, partially due to intraoperative blood loss 400 mL, partially due to rehydration. This should equilibrate over the next day or 2. We will follow it along. The patient has increased white blood cell to 21 today, likely reactive to and extensive ten-hour surgery yesterday. We will monitor this closely. No signs of infection are present right now. The patient is afebrile with vital signs stable. The incisions are all clean dry and intact. This should return to normal over the next few days. Further recommendations to follow as we progress through his recovery. VS, I&O, 24H, Fishbone Vital Signs/I&O Vital Signs Date Time Temp Pulse Resp B/P (MAP) Pulse Ox O2 Delivery O2 Flow Rate FiO2 04/02/19 15:10 16 04/02/19 10:01 Room Air 04/02/19 06:15 97 143/55 (84) 97 04/02/19 04:00 97.1 04/01/19 20:25 2 l I&O- Last 24 Hours up to 6 AM 04/02/19 05:59 Intake Total 5988 ml Output Total 2825 ml Balance 3163 ml Laboratory Data 24H LABS Laboratory Tests 2 04/01/19 15:43: Kaolin Activated Coagulation Time 175H 04/01/19 15:52: POC pH (Misc Panel) 7.424, POC Base Excess (Misc Panel) 3.0, POC Saturated Percent O2 (Misc) 100H, POC pO2 (Misc Panel) 208.0H, POC pCO2 (Misc Panel) 42.6, POC HCO3 (Misc Panel) 27.9H, POC Glucose (Misc Panel) 307H, POC Sodium (Misc Panel) 136, POC Potassium (Misc Panel) 3.7, POC Total CO2 (Misc Panel) 29.0H, POC Ionized Calcium (Misc Panel) 4.7, POC Hemoglobin (Calculated)(Misc) 12.6, POC Hematocrit (Misc Panel) 37.0L 04/01/19 16:22: Kaolin Activated Coagulation Time 169H 04/01/19 16:28: POC pH (Misc Panel) 7.428, POC Base Excess (Misc Panel) 3.0, POC Saturated Percent O2 (Misc) 100H, POC pO2 (Misc Panel) 205.0H, POC pCO2 (Misc Panel) 41.9, POC HCO3 (Misc Panel) 27.7H, POC Glucose (Misc Panel) 304H, POC Sodium (Misc Panel) 136, POC Potassium (Misc Panel) 3.9, POC Total CO2 (Misc Panel) 29.0H, POC Ionized Calcium (Misc Panel) 4.7, POC Hemoglobin (Calculated)(Misc) 12.9, POC Hematocrit (Misc Panel) 38.0 04/01/19 17:19: Kaolin Activated Coagulation Time 180H 04/01/19 17:27: POC pH (Misc Panel) 7.412, POC Base Excess (Misc Panel) 3.0, POC Saturated Percent O2 (Misc) 100H, POC pO2 (Misc Panel) 201.0H, POC pCO2 (Misc Panel) 43.0, POC HCO3 (Misc Panel) 27.4H, POC Glucose (Misc Panel) 296H, POC Sodium (Misc Panel) 137, POC Potassium (Misc Panel) 4.0, POC Total CO2 (Misc Panel) 29.0H, POC Ionized Calcium (Misc Panel) 4.7, POC Hemoglobin (Calculated)(Misc) 13.9, POC Hematocrit (Misc Panel) 41.0 04/01/19 18:02: Kaolin Activated Coagulation Time 175H 04/01/19 18:10: POC pH (Misc Panel) 7.424, POC Base Excess (Misc Panel) 3.0, POC Saturated Percent O2 (Misc) 100H, POC pO2 (Misc Panel) 188.0H, POC pCO2 (Misc Panel) 41.7, POC HCO3 (Misc Panel) 27.3H, POC Glucose (Misc Panel) 288H, POC Sodium (Misc Panel) 137, POC Potassium (Misc Panel) 4.0, POC Total CO2 (Misc Panel) 29.0H, POC Ionized Calcium (Misc Panel) 4.8, POC Hemoglobin (Calculated)(Misc) 12.2, POC Hematocrit (Misc Panel) 36.0L 04/01/19 18:58: Kaolin Activated Coagulation Time 164H 04/01/19 19:16: POC pH (Misc Panel) 7.413, POC Base Excess (Misc Panel) 3.0, POC Saturated Percent O2 (Misc) 99H, POC pO2 (Misc Panel) 159.0H, POC pCO2 (Misc Panel) 42.5, POC HCO3 (Misc Panel) 27.1H, POC Glucose (Misc Panel) 277H, POC Sodium (Misc Panel) 136, POC Potassium (Misc Panel) 3.9, POC Total CO2 (Misc Panel) 28.0H, POC Ionized Calcium (Misc Panel) 4.7, POC Hemoglobin (Calculated)(Misc) 11.2L, POC Hematocrit (Misc Panel) 33.0L 04/01/19 19:49: Bedside Glucose (Misc Panel) 284H 04/01/19 20:29: Bedside Glucose (Misc Panel) 259H 04/01/19 20:57: Activated Partial Thromboplast Time 77.8H 04/01/19 20:59: Bedside Glucose (Misc Panel) 259H 04/02/19 02:21: Activated Partial Thromboplast Time 39.6H 04/02/19 05:29: Anion Gap 9, Glomerular Filtration Rate > 60.0, Calcium Level 8.0L, Phosphorus Level 3.2, Magnesium Level 1.5L, Total Bilirubin 0.3, Aspartate Amino Transf (AST/SGOT) 73H, Alanine Aminotransferase (ALT/SGPT) 25, Alkaline Phosphatase 68, Total Protein 5.8#L, Albumin 2.2L, Albumin/Globulin Ratio 0.61L 04/02/19 05:43: Nucleated Red Blood Cells % (auto) 0.0 04/02/19 07:59: Activated Partial Thromboplast Time 61.5H 04/02/19 09:17: Bedside Glucose (Misc Panel) 256H 04/02/19 14:03: Bedside Glucose (Misc Panel) 283H CBC/BMP Laboratory Tests 04/02/19 05:29 04/02/19 05:43 URVASHI MANCINI MD Apr 02, 2019 15:41
[2019-04-02] MEDS ORDERED: MORPHINE 4 MG/ML 1ML VIAL/SYRINGE (J2270) IV PRN (15:45)
[2019-04-02] MEDS: HYDROMORPHONE HCL 0.5 MG/ 0.5 ML SYRINGE (J1170 PER 1) IV PRN ×2 (16:27→23:52)
[2019-04-02] MEDS: diazePAM 5 MG TAB PO PRN (18:51)
[2019-04-02] MEDS: LISINOPRIL 20 MG TAB PO SCH (21:01)
[2019-04-02] MEDS: ATORVASTATIN 20 MG TAB PO SCH (21:01)
[2019-04-02] MEDS: METOPROLOL SUCC *XL* 25MG TAB (TopROL *XL*) PO SCH (21:01)
[2019-04-03] MEDS: HYDROMORPHONE HCL 0.5 MG/ 0.5 ML SYRINGE (J1170 PER 1) IV PRN ×6 (03:31→22:43)
[2019-04-03 06:00] VITALS: BP 155/80
[2019-04-03] MEDS: PERCOCET 5MG/325MG TAB PO PRN ×3 (06:03→21:23)
[2019-04-03 07:05] LABS: HEMATOCRIT 33.8 % (42.0-52.0); HEMOGLOBIN 11.1 g/dl (13.5-17.5); MEAN CORPUSCULAR HGB CONC 32.8 g/dl (32.0-36.5); MEAN CORPUSCULAR VOLUME 85.4 fl (80.0-96.0); PLATELET COUNT, AUTOMATED 294 10^3/uL (150-450); RED BLOOD COUNT 3.96 10^6/uL (4.30-6.10); WHITE BLOOD COUNT 12.2 10^3/uL (4.0-10.0)
[2019-04-03 07:19] LABS: BLOOD UREA NITROGEN 6 MG/DL (7-18); CALCIUM LEVEL 8.4 MG/DL (8.5-10.1); CARBON DIOXIDE LEVEL 29 MEQ/L (21-32); CHLORIDE LEVEL 95 MEQ/L (98-107); CREATININE FOR GFR 0.42 MG/DL (0.70-1.30); GLOMERULAR FILTRATION RATE > 60.0 (>56); GLUCOSE, FASTING 277 MG/DL (70-100); POTASSIUM SERUM 3.6 MEQ/L (3.5-5.1); SODIUM LEVEL 133 MEQ/L (136-145)
[2019-04-03] MEDS: HumaLOG INSULIN (NovoLOG) PER UNIT SC SCH ×4 (07:49→21:24)
--- NOTE | 2019-04-03 09:01 | IPNPDOC ---
Text Note Date of Service The patient was seen on 04/03/19. NOTE Vascular surgery. Dr. Herrera Patient seen and examined POD2 status post extensive limb salvage revascularization 04/01/19, including right common femoral endarterectomy and profundoplasty with patch angioplasty, right posterior tibial endarterectomy and plantar thrombectomy, right femoral posterior tibial distal bypass with in situ vein, revision of the in situ vein due to porting quality, and subsequent arteriograms and interventions to improve flow through the vein. He is currently resting in bed, but states he has been up to the side of the bed this morning, and states he has been doing well. His pain is controlled currently. He does have significant incisional postop pain, as expected, but he is receiving adequate analgesia. He states he was out of bed yesterday. PT/OT pending. Per the nightmares, the patient said he would not quit smoking. He states he is doing okay with smoking cessation. He has previously been advised his bypass will likely fail if he continues to smoke. He is at extremely high risk for limb loss, and has few options for other endovascular or open revascularization should this fail. The patient is afebrile. On exam, the patient has a warm and pink foot. He continues to have triphasic signal over the femoral posterior tibial bypass, biphasic signal over the dorsal pedis artery. He continues to have some oozing from the posterior tibial incision at the ankle, but all of the other incisions remain clean and dry. All incisions were thoroughly cleaned this morning, redressed with Xeroform and dry gauze, and Kerlix. The patient tolerated this well. The skin over the medial ankle near the posterior tibial incision remains tenuous. This was the area of greatest ischemia preoperatively so will closely follow. WBC today is 12.2 decreased from 21.4 yesterday. Hemoglobin is stable at 11.1. Plan. Continue to monitor labs. Hemoglobin is stable. WBC is down trending, likely reactive. Continue with pain control. Continue out of bed. PT/OT pending. Continue heparin drip, possibly change to oral anticoagulation. Will discuss further with Dr. Herrera. Continue statin. Continue to closely monitor incisions and daily dressing changes. We will plan to get him in the shower postop day 3. No nicotine supplementation or replacements as the patient cannot afford any vasoconstriction. Continue to strongly reinforce continued smoking cessation. Continue to closely monitor. VS,Fishbone, I+O VS, Fishbone, I+O Laboratory Tests 04/03/19 06:22 Vital Signs Date Time Temp Pulse Resp B/P (MAP) Pulse Ox O2 Delivery O2 Flow Rate FiO2 04/03/19 07:59 18 04/03/19 06:33 Room Air 04/03/19 06:00 98.5 97 155/80 (105) 97 04/01/19 20:25 2 I&O- Last 24 Hours up to 6 AM 04/03/19 06:00 Intake Total 3100 ml Output Total 2075 ml Balance 1025 ml Kisha Alvarez Apr 03, 2019 09:01
[2019-04-03] MEDS: diazePAM 5 MG TAB PO PRN (10:35)
--- NOTE | 2019-04-03 12:27 | IPNPDOC ---
Text Note Date of Service The patient was seen on 04/03/19. NOTE Subjective: Patient seen and examined at bedside. POD #2 s/p vascular surgical intervention. No new medical complaints. Still has foot/leg pain, but states is well controlled with current analgesic therapy. Denies chest pain, shortness of breath, abdominal pain, N/V/D. Objective: GENERAL: NAD, lying comfortably in bed HEENT: Normocephalic, atraumatic, moist mucous membranes NECK: Supple CARDIOVASCULAR EXAMINATION: +S1S2, systolic murmur RESPIRATORY EXAMINATION: CTA B/L ABDOMINAL EXAMINATION: soft, NT, +BS SKIN: No rash NEUROLOGICAL EXAMINATION: sensation intact throughout, strength grossly 5/5 b/l upper/lower extremities PSYCHIATRIC: AAOx3 LABORATORY DATA: See below. MICROBIOLOGY: Please see below. ASSESSMENT: 53-year-old male with extensive PMHx of vascular disease, admitted for aggressive intravascular surgical intervention in hopes to prevent amputation. PLAN: 1. Peripheral vascular disease with short distance claudication. s/p right common femoral endarterectomy, posterior tibial endarterectomy with bypass. on heparin gtt Vascular surgery f/u appreciated - plan to transition to oral DOAC 2. Hypertension. Continue home meds with hold parameters 3. Diabetes mellitus. Hold glipizide, sliding scale insulin with fingersticks before meals and at bedtime 4. Hyperlipidemia. Continue atorvastatin 5. hypomagnesemia - continue to follow and replete as needed - today 2 IV mag runs Dispo: pain control, vascular follow up, transition heparin gtt to oral, transition to oral analgesic VS,Fishbone, I+O VS, Fishbone, I+O Laboratory Tests 04/03/19 06:22 Vital Signs Date Time Temp Pulse Resp B/P (MAP) Pulse Ox O2 Delivery O2 Flow Rate FiO2 04/03/19 11:47 18 04/03/19 06:33 Room Air 04/03/19 06:00 98.5 97 155/80 (105) 97 04/01/19 20:25 2 I&O- Last 24 Hours up to 6 AM 04/03/19 06:00 Intake Total 3100 ml Output Total 2075 ml Balance 1025 ml JANICE PETERSON MD Apr 03, 2019 12:27
[2019-04-03 14:00] VITALS: BP 150/80
[2019-04-03] MEDS: HEPARIN SOD (PORCINE) 5000 UNITS/ML VIAL IV PRN (14:43)
[2019-04-03] MEDS: HEPARIN DRIP 25,000 UNITS in IV 1 EA IV SCH ×2 (14:45→18:23)
[2019-04-03] MEDS: ATORVASTATIN 20 MG TAB PO SCH (21:23)
[2019-04-03] MEDS: METOPROLOL SUCC *XL* 25MG TAB (TopROL *XL*) PO SCH (21:24)
[2019-04-03] MEDS: LISINOPRIL 20 MG TAB PO SCH (21:25)
[2019-04-03 22:00] VITALS: BP 148/78
[2019-04-04] MEDS: HYDROMORPHONE HCL 0.5 MG/ 0.5 ML SYRINGE (J1170 PER 1) IV PRN ×4 (04:12→20:32)
[2019-04-04] MEDS: HEPARIN DRIP 25,000 UNITS in IV 1 EA IV SCH ×2 (04:13→15:44)
[2019-04-04 06:00] VITALS: BP 135/77
[2019-04-04 06:20] LABS: HEMATOCRIT 34.1 % (42.0-52.0); HEMOGLOBIN 11.4 g/dl (13.5-17.5); MEAN CORPUSCULAR HEMOGLOBIN 28.5 pg (27.0-33.0); MEAN CORPUSCULAR HGB CONC 33.4 g/dl (32.0-36.5); MEAN CORPUSCULAR VOLUME 85.3 fl (80.0-96.0); PLATELET COUNT, AUTOMATED 290 10^3/uL (150-450); WHITE BLOOD COUNT 12.4 10^3/uL (4.0-10.0)
[2019-04-04 06:43] LABS: BLOOD UREA NITROGEN 9 MG/DL (7-18); CALCIUM LEVEL 8.9 MG/DL (8.5-10.1); CARBON DIOXIDE LEVEL 30 MEQ/L (21-32); CHLORIDE LEVEL 97 MEQ/L (98-107); CREATININE FOR GFR 0.55 MG/DL (0.70-1.30); GLOMERULAR FILTRATION RATE > 60.0 (>56); GLUCOSE, FASTING 328 MG/DL (70-100); SODIUM LEVEL 132 MEQ/L (136-145)
[2019-04-04 07:30] VITALS: BP 158/72
--- NOTE | 2019-04-04 09:03 | IPNPDOC ---
Text Note Date of Service The patient was seen on 04/04/19. NOTE Vascular surgery. Dr. Herrera Patient seen and examined POD3 status post extensive limb salvage revascularization 04/01/19, including right common femoral endarterectomy and profundoplasty with patch angioplasty, right posterior tibial endarterectomy and plantar thrombectomy, right femoral posterior tibial distal bypass with in situ vein, revision of the in situ vein due to poor quality, and subsequent arteriograms and interventions to improve flow through the vein. He is currently resting in bed, but states he has been up to the , and states he has been doing well. His pain has been reasonably controlled. He does have significant incisional postop pain, as expected, but he is receiving adequate analgesia. It is reported that previously to the night staff the patient said he would not quit smoking. He reports this a.m. he is doing okay with smoking cessation. He has previously been advised his bypass will likely fail if he continues to smoke. He is at extremely high risk for limb loss, and has few options for other endovascular or open revascularization should this fail. The patient is afebrile. On exam, the patient has a warm and pink foot. He continues to have triphasic signal over the femoral posterior tibial bypass, biphasic signal over the dorsal pedis artery. This morning the patient still has some oozing from the distal incision sites at the ankle, but all of the other incisions remain clean and dry. There is dark discoloration between the incision sites at the distal foot with some darkish discoloration around the incision site itself, there is currently no skin breakdown. The skin over the medial ankle near the distal incisions remains tenuous.This was the area of greatest ischemia preoperatively so will closely follow. All incisions were thoroughly cleaned this morning, redressed with Xeroform, dry gauze, and Kerlix. The patient tolerated this well. WBC today is 12.4, stable. Hemoglobin is stable at 11.4, stable. Plan. Continue to monitor labs. Hemoglobin is stable. WBC is 12.4. Continue with pain control. Continue out of bed as tolerated. PT/OT pending, patient unable to participate 04/03/19. Continue heparin drip, possibly change to oral anticoagulation. Will hold off for now as the patient still has some oozing at his distal incision sites, Will discuss further with Dr. Herrera. Continue statin. Continue to closely monitor incisions and daily dressing changes. No nicotine supplementation or replacements as the patient cannot afford any vasoconstriction. Continue to strongly reinforce continued smoking cessation. Continue to closely monitor. Addendum. The patient is reviewed and examined as per Dr. Herrera. The patient's wounds right lower extremity are examined by Dr. Herrera. Plan as reviewed with Dr. Herrera. The skin remains tenuous in the inner aspect of the right foot around the ankle. The incision was cleaned. Hydrofera Blue with Kerlix was re applied. The remaining surgical sites were cleaned and were covered with optifoam dressings. Continue to elevate right lower extremity. Hold off on PT for now and continue to monitor the skin on the medial aspect of the right ankle. Will temporarily change activity level to bedrest with bathroom privileges. Recommend high-protein diet to facilitate wound healing. Plan to discontinue heparin drip 1 hour after starting Eliquis this evening. Will initiate Eliquis 10 mg by mouth twice a day 7 days at 9 PM tonight, after 7 days Eliquis 5 mg by mouth twice a day. We will request PFS to ensure Eliquis will be covered the patient's insurance at discharge. VS,Fishbone, I+O VS, Fishbone, I+O Laboratory Tests 04/04/19 06:06 Vital Signs Date Time Temp Pulse Resp B/P (MAP) Pulse Ox O2 Delivery O2 Flow Rate FiO2 04/04/19 08:20 18 Room Air 04/04/19 06:00 97.4 107 135/77 (96) 99 04/01/19 20:25 2 I&O- Last 24 Hours up to 6 AM 04/04/19 06:00 Intake Total 2550 ml Output Total 0 ml Balance 2550 ml Kisha Alvarez Apr 04, 2019 09:03
[2019-04-04] MEDS: HumaLOG INSULIN (NovoLOG) PER UNIT SC SCH ×4 (09:38→20:46)
[2019-04-04] MEDS: PERCOCET 5MG/325MG TAB PO PRN ×2 (09:38→18:46)
[2019-04-04] MEDS: LEVEMIR (INSULIN DETEMIR) 1 UNITS/0.01ML SC SCH (09:39)
[2019-04-04 09:55] VITALS: BP 158/76
[2019-04-04 13:43] VITALS: BP 144/84
[2019-04-04] MEDS: diazePAM 5 MG TAB PO PRN (15:47)
--- NOTE | 2019-04-04 19:32 | IPNPDOC ---
Date Seen The patient was seen on 04/04/19. Progress Note HISTORY OF PRESENT ILLNESS: 53-year-old male, past medical history of coronary artery disease status post cardiac stent, severe peripheral vascular disease, status post multiple arterial stents, hypertension, hyperlipidemia, diabetes mellitus, active smoker, is being admitted for right common from oral endarterectomy and posterior distal endarterectomy. 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 Patient is otherwise without any complaints, denies any shortness of breath, chest pain, nausea, vomiting, abdominal pain or diarrhea at this time. Patient was initially studied for surgery today, due to scheduling will undergo the procedure tomorrow. 04/04/2019 Patient reports mild lotion every pain, otherwise comfortable. He denies any short of breath, chest pain, nausea, vomiting, abdominal pain or diarrhea. 10 point review of system is negative except for above HOME MEDICATIONS: Please see below. PHYSICAL EXAMINATION: VITAL SIGNS: Please see below. GENERAL: No distress HEENT: Normocephalic, atraumatic, moist mucous membranes NECK: Supple CARDIOVASCULAR EXAMINATION: S1, S2, systolic murmur appreciated RESPIRATORY EXAMINATION: Clear to auscultation, no wheezing ABDOMINAL EXAMINATION: Soft, nontender, nondistended, positive bowel sounds EXTREMITIES: Left lower extremity with dressing in place, left dorsalis pedis pulse present by Doppler SKIN: No rash NEUROLOGICAL EXAMINATION: Alert and oriented 3, no focal deficits PSYCHIATRIC EXAMINATION: Calm and cooperative LABORATORY DATA: See below. MICROBIOLOGY: Please see below. 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 PLAN: 1. Peripheral vascular disease with short distance claudication. Status post right common femoral endarterectomy, posterior tibial endarterectomy with femoral to posterior tibial bypass Continue postop management as per rest with surgery, heparin drip switched to Eliquis 2. Hypertension. Continue home meds with hold parameters 3. Diabetes mellitus. Hold glipizide, sliding scale insulin with fingersticks before meals and at bedtime. Started Levemir 25 units daily 4. Hyperlipidemia. Continue atorvastatin DVT prophylaxis: On Eliquis GI prophylaxis: Not needed VS, I&O, 24H, Fishbone Vital Signs/I&O Vital Signs Date Time Temp Pulse Resp B/P (MAP) Pulse Ox O2 Delivery O2 Flow Rate FiO2 04/04/19 18:46 18 Room Air 04/04/19 13:43 98.4 90 144/84 (104) 98 04/01/19 20:25 2 I&O- Last 24 Hours up to 6 AM 04/04/19 05:59 Intake Total 2310 ml Output Total 500 ml Balance 1810 ml Laboratory Data 24H LABS Laboratory Tests 2 04/03/19 20:57: Bedside Glucose (Misc Panel) 366H 04/04/19 00:14: Activated Partial Thromboplast Time 102.3H 04/04/19 06:06: Activated Partial Thromboplast Time 99.4H, Nucleated Red Blood Cells % (auto) 0.0, Anion Gap 5L, Glomerular Filtration Rate > 60.0, Calcium Level 8.9 04/04/19 11:45: Bedside Glucose (Misc Panel) 360H 04/04/19 17:03: Bedside Glucose (Misc Panel) 254H CBC/BMP Laboratory Tests 04/04/19 06:06 MARIANELA GIORDANO MD Apr 04, 2019 19:32
[2019-04-04] MEDS: APIXABAN 5 MG TAB (ELIQUIS) PO SCH (20:33)
[2019-04-04] MEDS: ATORVASTATIN 20 MG TAB PO SCH (20:33)
[2019-04-04] MEDS: LISINOPRIL 20 MG TAB PO SCH (20:33)
[2019-04-04] MEDS: METOPROLOL SUCC *XL* 25MG TAB (TopROL *XL*) PO SCH (20:34)
[2019-04-04 22:00] VITALS: BP 146/83
[2019-04-05] MEDS: HYDROMORPHONE HCL 0.5 MG/ 0.5 ML SYRINGE (J1170 PER 1) IV PRN ×4 (00:25→21:56)
[2019-04-05] MEDS: diazePAM 5 MG TAB PO PRN ×3 (00:25→14:53)
[2019-04-05] MEDS: PERCOCET 5MG/325MG TAB PO PRN ×3 (02:53→14:53)
[2019-04-05 06:00] VITALS: BP 122/77
[2019-04-05 06:51] LABS: HEMATOCRIT 38.3 % (42.0-52.0); HEMOGLOBIN 12.6 g/dl (13.5-17.5); MEAN CORPUSCULAR HEMOGLOBIN 28.3 pg (27.0-33.0); MEAN CORPUSCULAR HGB CONC 32.9 g/dl (32.0-36.5); MEAN CORPUSCULAR VOLUME 85.9 fl (80.0-96.0); PLATELET COUNT, AUTOMATED 332 10^3/uL (150-450); RED BLOOD COUNT 4.46 10^6/uL (4.30-6.10); WHITE BLOOD COUNT 12.1 10^3/uL (4.0-10.0)
[2019-04-05 07:24] LABS: ALBUMIN 2.5 GM/DL (3.2-5.2); ALT/SGPT 46 U/L (12-78); BILIRUBIN,TOTAL 0.4 MG/DL (0.2-1.0); BLOOD UREA NITROGEN 7 MG/DL (7-18); CALCIUM LEVEL 9.6 MG/DL (8.5-10.1); CARBON DIOXIDE LEVEL 28 MEQ/L (21-32); CHLORIDE LEVEL 97 MEQ/L (98-107); CREATININE FOR GFR 0.63 MG/DL (0.70-1.30); GLOMERULAR FILTRATION RATE > 60.0 (>56); GLUCOSE, FASTING 299 MG/DL (70-100); MAGNESIUM LEVEL 1.8 MG/DL (1.8-2.4); PHOSPHORUS LEVEL 3.9 MG/DL (2.5-4.9); POTASSIUM SERUM 4.1 MEQ/L (3.5-5.1); SODIUM LEVEL 132 MEQ/L (136-145); TOTAL PROTEIN 7.8 GM/DL (6.4-8.2)
[2019-04-05] MEDS: APIXABAN 5 MG TAB (ELIQUIS) PO SCH ×2 (08:18→21:49)
[2019-04-05] MEDS: LEVEMIR (INSULIN DETEMIR) 1 UNITS/0.01ML SC SCH (08:19)
[2019-04-05] MEDS: HumaLOG INSULIN (NovoLOG) PER UNIT SC SCH ×4 (08:19→21:55)
--- NOTE | 2019-04-05 08:39 | IPNPDOC ---
Text Note Date of Service The patient was seen on 04/05/19. NOTE Vascular surgery. Dr. Herrera Patient seen and examined POD4 status post extensive limb salvage revascularization 04/01/19, including right common femoral endarterectomy and profundoplasty with patch angioplasty, right posterior tibial endarterectomy and plantar thrombectomy, right femoral posterior tibial distal bypass with in situ vein, revision of the in situ vein due to poor quality, and subsequent arteriograms and interventions to improve flow through the vein. He is currently resting in bed, but states he has been up to the BR. His pain has been reasonably controlled. He does have significant incisional postop pain, as expected, but he is receiving adequate analgesia. It is reported that previously to the night staff the patient said he would not quit smoking. He currently states he is doing okay with smoking cessation. He has previously been advised his bypass will likely fail if he continues to smoke. He is at extremely high risk for limb loss, and has few options for other endovascular or open revascularization should this fail. The patient is afebrile. On exam, the patient has a warm and pink foot. He continues to have triphasic signal over the femoral posterior tibial bypass at the calf area, biphasic signal over the dorsal pedis artery. Incisions remain clean and dry, there is some erythema around the tibial area incision. There is still dark discoloration between the incision sites at the distal foot with some darkish discoloration around the incision site itself, there is currently no skin breakdown. The skin over the medial ankle near the distal incisions remains tenuous.This was the area of greatest ischemia preoperatively so will closely follow. Leg incisions with optifoam, ankle incision is re dressed with hydrofera blue and Kerlix. The patient tolerated this well. WBC today is 12.1, stable. Hemoglobin is stable at 12.6, stable. Plan. Continue to monitor labs. Hemoglobin is improved. WBC is 12.1. Continue with pain control. Continue high-protein diet to facilitate wound healing. Continue with elevation of the LE, PT/OT on hold for now related to skin on the medial ankle area which is tenuous. Will continue to closely monitor. Continue Eliquis AC, Heparin d/cd 04/04/19. PFS assisting to ensure Eliquis is covered by the pt's insurance for discharge. Continue statin. Continue to closely monitor incisions and daily dressing changes. No nicotine supplementation or replacements as the patient cannot afford any vasoconstriction. Continue to strongly reinforce continued smoking cessation. Continue to closely monitor. VS,Fishbone, I+O VS, Fishbone, I+O Laboratory Tests 04/05/19 06:29 Vital Signs Date Time Temp Pulse Resp B/P (MAP) Pulse Ox O2 Delivery O2 Flow Rate FiO2 04/05/19 08:19 18 Room Air 04/05/19 06:00 97.1 101 122/77 (92) 97 04/01/19 20:25 2 I&O- Last 24 Hours up to 6 AM 04/05/19 06:00 Intake Total 2778 ml Output Total 0 ml Balance 2778 ml Kisha Alvarez Apr 05, 2019 08:39
[2019-04-05] MEDS ORDERED: LEVEMIR (INSULIN DETEMIR) 1 UNITS/0.01ML SC ONE (09:00)
--- NOTE | 2019-04-05 12:08 | IPNPDOC ---
Date Seen The patient was seen on 04/05/19. Progress Note HISTORY OF PRESENT ILLNESS: 53-year-old male, past medical history of coronary artery disease status post cardiac stent, severe peripheral vascular disease, status post multiple arterial stents, hypertension, hyperlipidemia, diabetes mellitus, active smoker, is being admitted for right common from oral endarterectomy and posterior distal endarterectomy. 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 Patient is otherwise without any complaints, denies any shortness of breath, chest pain, nausea, vomiting, abdominal pain or diarrhea at this time. Patient was initially studied for surgery today, due to scheduling will undergo the procedure tomorrow. 04/04/2019 Patient reports mild lotion every pain, otherwise comfortable. He denies any short of breath, chest pain, nausea, vomiting, abdominal pain or diarrhea. 04/05/2019 Patient evaluated in the morning, reporting mild right lower 70, pain, otherwise no complaints at this time. He denies any shortness of breath, chest pain, nausea, vomiting, abdominal pain or diarrhea. 10 point review of system is negative except for above HOME MEDICATIONS: Please see below. PHYSICAL EXAMINATION: VITAL SIGNS: Please see below. GENERAL: No distress HEENT: Normocephalic, atraumatic, moist mucous membranes NECK: Supple CARDIOVASCULAR EXAMINATION: S1, S2, systolic murmur appreciated RESPIRATORY EXAMINATION: Clear to auscultation, no wheezing ABDOMINAL EXAMINATION: Soft, nontender, nondistended, positive bowel sounds EXTREMITIES: Right lower extremity with dressing in place SKIN: No rash NEUROLOGICAL EXAMINATION: Alert and oriented 3, no focal deficits PSYCHIATRIC EXAMINATION: Calm and cooperative LABORATORY DATA: See below. MICROBIOLOGY: Please see below. 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 PLAN: 1. Peripheral vascular disease with short distance claudication. Status post right common femoral endarterectomy, posterior tibial endarterectomy with femoral to posterior tibial bypass Continue postop management as per rest with surgery, on Eliquis. 2. Hypertension. Continue home meds with hold parameters 3. Diabetes mellitus. Hold glipizide, sliding scale insulin with fingersticks before meals and at bedtime. Increased Levemir to 35 units daily 4. Hyperlipidemia. Continue atorvastatin DVT prophylaxis: On Eliquis GI prophylaxis: Not needed VS, I&O, 24H, Tanvir Vital Signs/I&O Vital Signs Date Time Temp Pulse Resp B/P (MAP) Pulse Ox O2 Delivery O2 Flow Rate FiO2 04/05/19 08:19 18 Room Air 04/05/19 06:00 97.1 101 122/77 (92) 97 04/01/19 20:25 2 I&O- Last 24 Hours up to 6 AM 04/05/19 06:00 Intake Total 2778 ml Output Total 0 ml Balance 2778 ml Laboratory Data 24H LABS Laboratory Tests 2 04/04/19 17:03: Bedside Glucose (Misc Panel) 254H 04/04/19 20:20: Bedside Glucose (Misc Panel) 219H 04/05/19 06:29: Nucleated Red Blood Cells % (auto) 0.0, Activated Partial Thromboplast Time 39.2H, Anion Gap 7L, Glomerular Filtration Rate > 60.0, Calcium Level 9.6, Phosphorus Level 3.9, Magnesium Level 1.8, Total Bilirubin 0.4, Aspartate Amino Transf (AST/SGOT) 37, Alanine Aminotransferase (ALT/SGPT) 46, Alkaline Phosphatase 84, Total Protein 7.8, Albumin 2.5L, Albumin/Globulin Ratio 0.47L 04/05/19 11:21: Bedside Glucose (Misc Panel) 288H CBC/BMP Laboratory Tests 04/05/19 06:29 MARIANELA GIORDANO MD Apr 05, 2019 12:08
[2019-04-05 14:00] VITALS: BP 112/73
[2019-04-05] MEDS ORDERED: ELIQ5TAB PO (14:43)
[2019-04-05 21:29] VITALS: BP 117/74
[2019-04-05] MEDS: ATORVASTATIN 20 MG TAB PO SCH (21:55)
[2019-04-05 21:58] VITALS: BP 124/98
[2019-04-05] MEDS: LISINOPRIL 20 MG TAB PO SCH (22:00)
[2019-04-05] MEDS: METOPROLOL SUCC *XL* 25MG TAB (TopROL *XL*) PO SCH (22:01)
[2019-04-06] MEDS: HYDROMORPHONE HCL 0.5 MG/ 0.5 ML SYRINGE (J1170 PER 1) IV PRN ×4 (02:07→20:58)
[2019-04-06] MEDS: PERCOCET 5MG/325MG TAB PO PRN ×3 (06:50→18:11)
[2019-04-06 06:55] VITALS: BP 145/74
[2019-04-06] MEDS: APIXABAN 5 MG TAB (ELIQUIS) PO SCH ×2 (08:16→20:58)
[2019-04-06] MEDS: LEVEMIR (INSULIN DETEMIR) 1 UNITS/0.01ML SC SCH (08:16)
[2019-04-06] MEDS: HumaLOG INSULIN (NovoLOG) PER UNIT SC SCH ×4 (08:16→20:57)
[2019-04-06] MEDS: diazePAM 5 MG TAB PO PRN ×3 (08:16→20:57)
[2019-04-06] MEDS ORDERED: LEVEMIR (INSULIN DETEMIR) 1 UNITS/0.01ML SC SCH (09:00)
--- NOTE | 2019-04-06 12:12 | IPNPDOC ---
Text Note Date of Service The patient was seen on 04/06/19. NOTE Vascular surgery. Dr. Herrera Patient seen and examined POD5 status post extensive limb salvage revascularization 04/01/19, including right common femoral endarterectomy and profundoplasty with patch angioplasty, right posterior tibial endarterectomy and plantar thrombectomy, right femoral posterior tibial distal bypass with in situ vein, revision of the in situ vein due to poor quality, and subsequent arteriograms and interventions to improve flow through the vein. He is currently resting in bed this morning. The patient states pain has been reasonably controlled. He continues to have incisional postop pain most pronounced at the inner aspect of the right ankle, as expected, but he is receiving adequate analgesia. It is reported that previously to the night staff the patient said he would not quit smoking. He continues to report he is doing okay with smoking cessation. He has previously been advised his bypass will likely fail if he continues to smoke. He is at extremely high risk for limb loss, and has few options for other endovascular or open revascularization should this fail. The patient is afebrile. On exam, the patient has a warm and pink foot. He continues to have triphasic signal over the femoral posterior tibial bypass at the distal calf area, b iphasic signal over the dorsal pedis artery. Incisions remain clean and dry, there is some erythema around the tibial area incision. There is still dark discoloration between the incision sites at the distal foot with some darkish discoloration around the incision site itself but it appears slightly improved from yesterday. There is no skin breakdown. The skin over the medial ankle near the distal incisions remains tenuous.This was the area of greatest ischemia preoperatively so will closely follow. All incisions are thoroughly cleaned, leg incisions covered with optifoam, ankle incision is re dressed with hydrofera blue and Kerlix. The patient tolerated this well. Plan. Continue to monitor labs. Hemoglobin continues to trend upward. WBC is 12.1, no new labs are available for review today. Continue with pain control. Continue high-protein diet to facilitate wound healing. Continue with elevation of the LE, PT/OT on hold for now related to skin on the medial ankle area which is tenuous. Will continue to closely monitor. Continue Eliquis AC, Heparin d/cd 04/04/19. PFS assisting to ensure Eliquis is covered by the pt's insurance for discharge. Continue statin. Continue to closely monitor incisions and daily dressing changes. No nicotine supplementation or replacements as the patient cannot afford any vasoconstriction. Continue to strongly reinforce continued smoking cessation. Continue to closely monitor. VS,Fishbone, I+O VS, Fishbone, I+O Vital Signs Date Time Temp Pulse Resp B/P (MAP) Pulse Ox O2 Delivery O2 Flow Rate FiO2 04/06/19 08:27 18 Room Air 04/06/19 06:55 97.8 111 145/74 (97) 99 04/01/19 20:25 2 I&O- Last 24 Hours up to 6 AM 04/06/19 06:00 Intake Total 1420 ml Output Total 0 ml Balance 1420 ml Kisha Alvarez Apr 06, 2019 12:12
[2019-04-06 13:33] VITALS: BP 140/74
[2019-04-06] MEDS ORDERED: HumaLOG INSULIN (NovoLOG) PER UNIT IV STA (17:14)
[2019-04-06] MEDS ORDERED: HYDROMORPHONE HCL 0.5 MG/ 0.5 ML SYRINGE (J1170 PER 1) IV ONE (17:15)
--- NOTE | 2019-04-06 17:33 | IPNPDOC ---
Date Seen The patient was seen on 04/06/19. Progress Note HISTORY OF PRESENT ILLNESS: 53-year-old male, past medical history of coronary artery disease status post cardiac stent, severe peripheral vascular disease, status post multiple arterial stents, hypertension, hyperlipidemia, diabetes mellitus, active smoker, is being admitted for right common from oral endarterectomy and posterior distal endarterectomy. 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 Patient is otherwise without any complaints, denies any shortness of breath, chest pain, nausea, vomiting, abdominal pain or diarrhea at this time. Patient was initially studied for surgery today, due to scheduling will undergo the procedure tomorrow. 04/04/2019 Patient reports mild lotion every pain, otherwise comfortable. He denies any short of breath, chest pain, nausea, vomiting, abdominal pain or diarrhea. 04/05/2019 Patient evaluated in the morning, reporting mild right lower 70, pain, otherwise no complaints at this time. He denies any shortness of breath, chest pain, nausea, vomiting, abdominal pain or diarrhea. 04/06/2019 Patient reports worsening right lower extremity pain later in the day, given additional dose of IV Dilaudid, continues to have severely elevated glucose, Levemir dose increased and received a dose of IV insulin 8 units 1. He is tolerating his diet. 10 point review of system is negative except for above HOME MEDICATIONS: Please see below. PHYSICAL EXAMINATION: VITAL SIGNS: Please see below. GENERAL: No distress HEENT: Normocephalic, atraumatic, moist mucous membranes NECK: Supple CARDIOVASCULAR EXAMINATION: S1, S2, systolic murmur appreciated RESPIRATORY EXAMINATION: Clear to auscultation, no wheezing ABDOMINAL EXAMINATION: Soft, nontender, nondistended, positive bowel sounds EXTREMITIES: Right lower extremity with dressing in place, right dorsalis pedis pulse present by Doppler. SKIN: No rash NEUROLOGICAL EXAMINATION: Alert and oriented 3, no focal deficits PSYCHIATRIC EXAMINATION: Calm and cooperative LABORATORY DATA: See below. MICROBIOLOGY: Please see below. 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 PLAN: 1. Peripheral vascular disease with short distance claudication. Status post right common femoral endarterectomy, posterior tibial endarterectomy with femoral to posterior tibial bypass Continue postop management as per rest with surgery, on Eliquis. Give additional dose for pain control, vascular surgery aware of worsening pain. 2. Hypertension. Continue home meds with hold parameters, tachycardic, EKG with sinus tachyc ardia. Started maintenance fluids with normal saline at 80 mL per hour. 3. Diabetes mellitus. Hold glipizide, sliding scale insulin with fingersticks before meals and at bedtime. Increased Levemir to 50 units daily Blood glucose consistently elevated, gave 1 dose of IV insulin 8 units. 4. Hyperlipidemia. Continue atorvastatin DVT prophylaxis: On Eliquis GI prophylaxis: Not needed VS, I&O, 24H, Fishbone Vital Signs/I&O Vital Signs Date Time Temp Pulse Resp B/P (MAP) Pulse Ox O2 Delivery O2 Flow Rate FiO2 04/06/19 15:14 18 Room Air 04/06/19 13:33 98.6 104 140/74 (96) 96 04/01/19 20:25 2 I&O- Last 24 Hours up to 6 AM 04/06/19 05:59 Intake Total 1420 ml Output Total 0 ml Balance 1420 ml Laboratory Data 24H LABS Laboratory Tests 2 04/05/19 21:31: Bedside Glucose (Misc Panel) 342H 04/06/19 06:54: Bedside Glucose (Misc Panel) 289H 04/06/19 11:28: Bedside Glucose (Misc Panel) 294H MARIANELA GIORDANO MD Apr 06, 2019 17:33
[2019-04-06] MEDS: NS 1,000 ML IV SCH (18:11)
[2019-04-06] MEDS: ATORVASTATIN 20 MG TAB PO SCH (20:57)
[2019-04-06 21:05] VITALS: BP 106/73
[2019-04-06 22:00] VITALS: BP 136/75
[2019-04-06 22:49] VITALS: BP 137/79
[2019-04-06] MEDS: METOPROLOL SUCC *XL* 25MG TAB (TopROL *XL*) PO SCH (22:52)
[2019-04-06] MEDS: LISINOPRIL 20 MG TAB PO SCH (22:52)
[2019-04-07] MEDS: PERCOCET 5MG/325MG TAB PO PRN ×3 (00:39→14:38)
--- NOTE | 2019-04-07 01:16 | ECGEPIP ---
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
[2019-04-07] MEDS: NS 1,000 ML IV SCH ×2 (06:32→18:30)
[2019-04-07 06:37] LABS: HEMATOCRIT 35.9 % (42.0-52.0); HEMOGLOBIN 11.6 g/dl (13.5-17.5); MEAN CORPUSCULAR HEMOGLOBIN 28.3 pg (27.0-33.0); MEAN CORPUSCULAR HGB CONC 32.3 g/dl (32.0-36.5); MEAN CORPUSCULAR VOLUME 87.6 fl (80.0-96.0); PLATELET COUNT, AUTOMATED 326 10^3/uL (150-450); WHITE BLOOD COUNT 12.7 10^3/uL (4.0-10.0)
[2019-04-07] MEDS: diazePAM 5 MG TAB PO PRN ×2 (06:38→21:06)
[2019-04-07 06:50] VITALS: BP 137/78
[2019-04-07 06:59] LABS: BLOOD UREA NITROGEN 16 MG/DL (7-18); CALCIUM LEVEL 8.6 MG/DL (8.5-10.1); CARBON DIOXIDE LEVEL 28 MEQ/L (21-32); CHLORIDE LEVEL 97 MEQ/L (98-107); CREATININE FOR GFR 0.58 MG/DL (0.70-1.30); GLOMERULAR FILTRATION RATE > 60.0 (>56); GLUCOSE, FASTING 317 MG/DL (70-100); POTASSIUM SERUM 4.2 MEQ/L (3.5-5.1); SODIUM LEVEL 132 MEQ/L (136-145)
[2019-04-07] MEDS: HumaLOG INSULIN (NovoLOG) PER UNIT SC SCH ×4 (08:30→21:07)
[2019-04-07] MEDS: LEVEMIR (INSULIN DETEMIR) 1 UNITS/0.01ML SC SCH (08:30)
[2019-04-07] MEDS: APIXABAN 5 MG TAB (ELIQUIS) PO SCH ×2 (08:31→21:07)
[2019-04-07] MEDS ORDERED: HumuLIN R (REGULAR) INSULIN (NovoLIN R) **100U/ML** PER UNIT IV STA (09:00)
[2019-04-07 14:01] VITALS: BP 104/66
[2019-04-07] MEDS: HYDROMORPHONE HCL 0.5 MG/ 0.5 ML SYRINGE (J1170 PER 1) IV PRN ×2 (14:51→21:09)
--- NOTE | 2019-04-07 15:12 | IPNPDOC ---
Text Note Date of Service The patient was seen on 04/07/19. NOTE Vascular surgery. Dr. Herrera Patient seen and examined POD6 status post extensive limb salvage revascularization 04/01/19, including right common femoral endarterectomy and profundoplasty with patch angioplasty, right posterior tibial endarterectomy and plantar thrombectomy, right femoral posterior tibial distal bypass with in situ vein, revision of the in situ vein due to poor quality, and subsequent arteriograms and interventions to improve flow through the vein. He is currently resting in bed, just woke up and states his pain is 9/10, po and IV pain meds given. He continues to have incisional postop pain most pronounced at the inner aspect of the right ankle, as expected. It is reported that previously to the night staff the patient said he would not quit smoking. He continues to report he is doing okay with smoking cessation. He has previously been advised his bypass will likely fail if he continues to smoke. He is at extremely high risk for limb loss, and has few options for other endovascular or open revascularization should this fail. The patient is afebrile. On exam, the patient has a warm and pink foot. He continues to have triphasic signal over the femoral posterior tibial bypass at the distal calf area, biphasic signal over the dorsal pedis artery. Incisions remain clean and dry, there is erythema around the tibial area incision but this appears better today. There is still dark discoloration between the incision sites at the distal foot with some darkish discoloration around the incision site itself but it appears slightly improved from yesterday. A few ravindra were removed from the incision as per Dr Herrera to help to relieve some tension. There is no skin breakdown. The skin over the medial ankle near the distal incisions remains tenuous.This was the area of greatest ischemia preoperatively so will closely follow. All incisions are thoroughly cleaned, leg incisions covered with optifoam, ankle incision is re dressed with hydrofera blue and Kerlix. The patient tolerated this well. Plan. Continue to monitor labs. Hemoglobin 11.6. WBC is 12.7. Continue with pain control. Continue high-protein diet to facilitate wound healing. Continue with elevation of the LE, PT/OT on hold for now related to skin on the medial ankle area which is tenuous. Will continue to closely monitor. Continue Eliquis AC, Heparin d/cd 04/04/19. PFS assisting to ensure Eliquis is covered by the pt's insurance for discharge. Continue statin. Continue to closely monitor incisions and daily dressing changes. No nicotine supplementation or replacements as the patient cannot afford any vasoconstriction. Continue to strongly reinforce continued smoking cessation. Continue to closely monitor. VS,Fishbone, I+O VS, Fishbone, I+O Laboratory Tests 04/07/19 06:02 Vital Signs Date Time Temp Pulse Resp B/P (MAP) Pulse Ox O2 Delivery O2 Flow Rate FiO2 04/07/19 14:51 20 04/07/19 06:50 97.7 91 137/78 (97) 97 Room Air 04/01/19 20:25 2 I&O- Last 24 Hours up to 6 AM 04/07/19 05:59 Intake Total 520 ml Output Total 1650 ml Balance -1130 ml Kisha Alvarez Apr 07, 2019 15:12
[2019-04-07] MEDS ORDERED: BACITRACIN OINT 30GM TOP PRN (15:15)
[2019-04-07] MEDS: PERCOCET 5MG/325MG TAB PO SCH ×2 (17:13→23:52)
--- NOTE | 2019-04-07 18:40 | IPNPDOC ---
Date Seen The patient was seen on 04/07/19. Progress Note HISTORY OF PRESENT ILLNESS: 53-year-old male, past medical history of coronary artery disease status post cardiac stent, severe peripheral vascular disease, status post multiple arterial stents, hypertension, hyperlipidemia, diabetes mellitus, active smoker, is being admitted for right common from oral endarterectomy and posterior distal endarterectomy. 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 Patient is otherwise without any complaints, denies any shortness of breath, chest pain, nausea, vomiting, abdominal pain or diarrhea at this time. Patient was initially studied for surgery today, due to scheduling will undergo the procedure tomorrow. 04/04/2019 Patient reports mild lotion every pain, otherwise comfortable. He denies any short of breath, chest pain, nausea, vomiting, abdominal pain or diarrhea. 04/05/2019 Patient evaluated in the morning, reporting mild right lower 70, pain, otherwise no complaints at this time. He denies any shortness of breath, chest pain, nausea, vomiting, abdominal pain or diarrhea. 04/06/2019 Patient reports worsening right lower extremity pain later in the day, given additional dose of IV Dilaudid, continues to have severely elevated glucose, Levemir dose increased and received a dose of IV insulin 8 units 1. He is tolerating his diet. 04/07/2019 Patient continues to have right lower extremity pain, unchanged from yesterday, no other complaints at this time. 10 point review of system is negative except for above HOME MEDICATIONS: Please see below. PHYSICAL EXAMINATION: VITAL SIGNS: Please see below. GENERAL: No distress HEENT: Normocephalic, atraumatic, moist mucous membranes NECK: Supple CARDIOVASCULAR EXAMINATION: S1, S2, systolic murmur appreciated RESPIRATORY EXAMINATION: Clear to auscultation, no wheezing ABDOMINAL EXAMINATION: Soft, nontender, nondistended, positive bowel sounds EXTREMITIES: Right lower extremity with dressing in place, right dorsalis pedis pulse present by Doppler. SKIN: No rash NEUROLOGICAL EXAMINATION: Alert and oriented 3, no focal deficits PSYCHIATRIC EXAMINATION: Calm and cooperative LABORATORY DATA: See below. MICROBIOLOGY: Please see below. 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 PLAN: 1. Peripheral vascular disease with short distance claudication. Status post right common femoral endarterectomy, posterior tibial endarterectomy with femoral to posterior tibial bypass Continue postop management as per rest with surgery, on Eliquis. Pain medication increased 2. Hypertension. Continue home meds with hold parameters 3. Diabetes mellitus. Hold glipizide, sliding scale insulin with fingersticks before meals and at bedtime. Continue Levemir at 50 units daily 4. Hyperlipidemia. Continue atorvastatin DVT prophylaxis: On Eliquis GI prophylaxis: Not needed VS, I&O, 24H, Fishbone Vital Signs/I&O Vital Signs Date Time Temp Pulse Resp B/P (MAP) Pulse Ox O2 Delivery O2 Flow Rate FiO2 04/07/19 17:13 20 Room Air 04/07/19 14:01 98.9 98 104/66 (79) 94 04/01/19 20:25 2 I&O- Last 24 Hours up to 6 AM 04/07/19 06:00 Intake Total 620 ml Output Total 1650 ml Balance -1030 ml Laboratory Data 24H LABS Laboratory Tests 2 04/07/19 06:02: Nucleated Red Blood Cells % (auto) 0.0, Anion Gap 7L, Glomerular Filtration Rate > 60.0, Calcium Level 8.6 04/07/19 10:06: Bedside Glucose (Misc Panel) 239H 04/07/19 12:14: Bedside Glucose (Misc Panel) 142H 04/07/19 16:45: Bedside Glucose (Misc Panel) 173H CBC/BMP Laboratory Tests 04/07/19 06:02 MARIANELA GIORDANO MD Apr 07, 2019 18:40
[2019-04-07] MEDS: METOPROLOL SUCC *XL* 25MG TAB (TopROL *XL*) PO SCH (21:07)
[2019-04-07] MEDS: LISINOPRIL 20 MG TAB PO SCH (21:08)
[2019-04-07] MEDS: ATORVASTATIN 20 MG TAB PO SCH (21:08)
[2019-04-07 22:00] VITALS: BP 132/81
[2019-04-08] VITALS (7 sets, daily range): BP systolic 121–148; BP diastolic 61–82
[2019-04-08] MEDS: HYDROMORPHONE HCL 0.5 MG/ 0.5 ML SYRINGE (J1170 PER 1) IV PRN ×2 (01:37→21:19)
[2019-04-08] MEDS: PERCOCET 5MG/325MG TAB PO SCH ×3 (06:10→18:12)
[2019-04-08] MEDS: NS 1,000 ML IV SCH (06:45)
[2019-04-08 06:54] LABS: HEMATOCRIT 35.5 % (42.0-52.0); HEMOGLOBIN 11.4 g/dl (13.5-17.5); MEAN CORPUSCULAR HEMOGLOBIN 27.9 pg (27.0-33.0); MEAN CORPUSCULAR HGB CONC 32.1 g/dl (32.0-36.5); PLATELET COUNT, AUTOMATED 331 10^3/uL (150-450); RED BLOOD COUNT 4.08 10^6/uL (4.30-6.10); WHITE BLOOD COUNT 10.8 10^3/uL (4.0-10.0)
[2019-04-08] MEDS: diazePAM 5 MG TAB PO PRN (06:59)
[2019-04-08 07:19] LABS: BLOOD UREA NITROGEN 12 MG/DL (7-18); CALCIUM LEVEL 8.5 MG/DL (8.5-10.1); CARBON DIOXIDE LEVEL 29 MEQ/L (21-32); CHLORIDE LEVEL 98 MEQ/L (98-107); CREATININE FOR GFR 0.56 MG/DL (0.70-1.30); GLOMERULAR FILTRATION RATE > 60.0 (>56); GLUCOSE, FASTING 242 MG/DL (70-100); POTASSIUM SERUM 3.9 MEQ/L (3.5-5.1); SODIUM LEVEL 132 MEQ/L (136-145)
[2019-04-08] MEDS: LEVEMIR (INSULIN DETEMIR) 1 UNITS/0.01ML SC SCH (08:13)
[2019-04-08] MEDS: APIXABAN 5 MG TAB (ELIQUIS) PO SCH ×2 (08:13→21:17)
[2019-04-08] MEDS: HumaLOG INSULIN (NovoLOG) PER UNIT SC SCH ×4 (08:14→21:00)
[2019-04-08] MEDS ORDERED: HEPARIN SOD (PORCINE) 5000 UNITS/ML VIAL As Ordered ONE (11:12)
--- NOTE | 2019-04-08 11:56 | IPNPDOC ---
Date Seen The patient was seen on 04/08/19. Progress Note Patient seen and examined POD#7 s/p extensive limb salvage revascularization 04/01/19, including right common femoral endarterectomy and profundoplasty with patch angioplasty, right posterior tibial endarterectomy and plantar thrombectomy, right femoral posterior tibial distal bypass with in situ vein, revision of the in situ vein due to poor quality, and subsequent arteriograms, angioplasty and interventions to improve flow through the vein. He continues to report he is doing okay with smoking cessation. He has previously been advised his bypass will likely fail if he continues to smoke. He is at extremely high risk for limb loss, and has no additional options for other endovascular or open revascularization should this fail. The bypass was successful, and the patient has a dramatic improvement in perfusion postop R foot. His DP signal was weakly monophasic, now strong biphasic signal due to increased collateral circulation flow after revascularizing the [employer] and profunda flow. The posterior tibial angiosome has reperfused after bypass, but the tissue in the area of GSV harvest distally and posterior tibial artery distally has been very tenuous. It is not ideal to have a narrow skin bridge between incisions at the ankle, especially in an area that was so poorly perfused for a long time. I am concerned about possible dehiscence and exposed bypass/PT artery if this occurs. There is not suitable blood flow to the muscle for a muscle flap coverage. I have been carefully watching this over the past week and performing careful wound care, and keeping the pt mostly on bedrest with his leg elevated to try to help with healing. However, he needs to get up eventually and walk, but I am very concerned about dehiscence and poor healing. I discussed with the patient that the best option may be to return to the OR, remove a few ravindra at the distal posterior tibial incision and clean the dried blood off, carefully remove any nonviable skin edges, place a few vertical mattress nylon sutures to help with security at the incision and prevent gross dehiscence- but not try to bring the skin edges all the way together if there is tension. Then we can do local wound care until healed. Risks, benefits and alternatives explained and he is agreeable to proceed. Informed consent obtained. On exam today, the patient has a very warm and pink foot. He continues to have triphasic signal over the femoral posterior tibial bypass at the distal calf area, biphasic signal over the dorsal pedis artery. Incisions remain clean and dry, the discoloration around the tibial incision appears stable today. There is still dark discoloration between the incision sites at the distal foot with some darkish discoloration around the incision site itself but it appears slightly improved from yesterday. A few ravindra were removed 2 days ago to relieve some tension, but this did not have much effect. There is no skin breakdown. The skin over the medial ankle near the distal incisions remains very tenuous as described above. This was the area of greatest ischemia preoperatively and now reperfusion seems more likely an explanation for the discoloration than ischemia, bc at a week out I would expect an eschar or necrosis, but instead it all seems to be a bit better every day. All incisions are thoroughly cleaned, leg incisions and groin covered with optifoam, ankle incision is redressed with triple antibiotic ointment, hydrofera blue and Kerlix. The patient tolerated this well. Plan is to proceed to OR today to see if we can do anything safely to help prevent dehiscence at the posterior tibial incision. I think less is more, and we will try not to do anything that further compromises healing. Pt should continue smoking cessation-- this is imperative. No nicotine supplementation or replacements as the patient cannot afford any vasoconstriction. We will continue eliquis, high protein diet to help with healing, minimal ambulation and elevation RLE to help diminish swelling, careful wound care. Analgesia changed yesterday to schedule percocet, and pt said he is doing much better with his pain today. He has not needed supplemental analgesia since starting the schedule d pain medication. VS, I&O, 24H, Fishbone Vital Signs/I&O Vital Signs Date Time Temp Pulse Resp B/P (MAP) Pulse Ox O2 Delivery O2 Flow Rate FiO2 04/08/19 11:26 16 Room Air 04/08/19 06:00 97.9 101 121/80 (94) 96 I&O- Last 24 Hours up to 6 AM 04/08/19 06:00 Intake Total 2430 ml Output Total 1500 ml Balance 930 ml Laboratory Data 24H LABS Laboratory Tests 2 04/07/19 12:14: Bedside Glucose (Misc Panel) 142H 04/07/19 16:45: Bedside Glucose (Misc Panel) 173H 04/07/19 20:32: Bedside Glucose (Misc Panel) 321H 04/08/19 06:35: Nucleated Red Blood Cells % (auto) 0.0, Anion Gap 5L, Glomerular Filtration Rate > 60.0, Calcium Level 8.5 CBC/BMP Laboratory Tests 04/08/19 06:35 URVASHI MANCINI MD Apr 08, 2019 11:56
[2019-04-08] MEDS ORDERED: ceFAZolin 2 GM/D5W 50 ML IV BAG (J0690 PER 500MG) As Ordered ONE (13:01)
[2019-04-08] MEDS ORDERED: LIDOCAINE 1% SDV INJ 30 ML VIAL As Ordered ONE (13:23)
[2019-04-08] MEDS ORDERED: MIDAZOLAM INJ 5 MG/ML VIAL (J2250) As Ordered ONE (13:31)
[2019-04-08] MEDS ORDERED: KETAMINE HCL 200 MG/20 ML VIAL As Ordered ONE (13:31)
[2019-04-08] MEDS ORDERED: PROPOFOL 200 MG/20 ML VIAL As Ordered ONE (13:31)
[2019-04-08] MEDS ORDERED: fentaNYL 250 MCG/5 ML INJECTION (J3010) As Ordered ONE (13:31)
[2019-04-08] MEDS ORDERED: LIDOCAINE 2% INJ 100 MG/5 ML SDV (FOR ANES.) As Ordered ONE (13:32)
--- NOTE | 2019-04-08 14:06 | IPNPDOC ---
Date Seen The patient was seen on 04/08/19. Progress Note HISTORY OF PRESENT ILLNESS: 53-year-old male, past medical history of coronary artery disease status post cardiac stent, severe peripheral vascular disease, status post multiple arterial stents, hypertension, hyperlipidemia, diabetes mellitus, active smoker, is being admitted for right common from oral endarterectomy and posterior distal endarterectomy. 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 Patient is otherwise without any complaints, denies any shortness of breath, chest pain, nausea, vomiting, abdominal pain or diarrhea at this time. Patient was initially studied for surgery today, due to scheduling will undergo the procedure tomorrow. 04/08/2019 Patient continues to have right lower extremity incisional pain, evaluated by vascular surgery, scheduled for revision of distal right bypass incision later today by vascular surgery. 10 point review of system is negative except for above HOME MEDICATIONS: Please see below. PHYSICAL EXAMINATION: VITAL SIGNS: Please see below. GENERAL: No distress HEENT: Normocephalic, atraumatic, moist mucous membranes NECK: Supple CARDIOVASCULAR EXAMINATION: S1, S2, systolic murmur appreciated RESPIRATORY EXAMINATION: Clear to auscultation, no wheezing ABDOMINAL EXAMINATION: Soft, nontender, nondistended, positive bowel sounds EXTREMITIES: Right lower extremity with dressing in place SKIN: No rash NEUROLOGICAL EXAMINATION: Alert and oriented 3, no focal deficits PSYCHIATRIC EXAMINATION: Calm and cooperative LABORATORY DATA: See below. MICROBIOLOGY: Please see below. 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 PLAN: 1. Peripheral vascular disease with short distance claudication. Status post right common femoral endarterectomy, posterior tibial endarterectomy with femoral to posterior tibial bypass Continue postop management as per rest with surgery, on Eliquis. Scheduled for revision of distal right bypass incision as it is not healing as well as expected. 2. Hypertension. Continue home meds with hold parameters 3. Diabetes mellitus. Hold glipizide, sliding scale insulin with fingersticks before meals and at bedtime. Continue Levemir at 50 units daily 4. Hyperlipidemia. Continue atorvastatin DVT prophylaxis: On Eliquis GI prophylaxis: Not needed VS, I&O, 24H, Fishbone Vital Signs/I&O Vital Signs Date Time Temp Pulse Resp B/P (MAP) Pulse Ox O2 Delivery O2 Flow Rate FiO2 04/08/19 11:56 16 Room Air 04/08/19 06:00 97.9 101 121/80 (94) 96 I&O- Last 24 Hours up to 6 AM 04/08/19 06:00 Intake Total 2430 ml Output Total 1500 ml Balance 930 ml Laboratory Data 24H LABS Laboratory Tests 2 04/07/19 16:45: Bedside Glucose (Misc Panel) 173H 04/07/19 20:32: Bedside Glucose (Misc Panel) 321H 04/08/19 06:35: Nucleated Red Blood Cells % (auto) 0.0, Anion Gap 5L, Glomerular Filtration Rate > 60.0, Calcium Level 8.5 04/08/19 12:09: Bedside Glucose (Misc Panel) 287H CBC/BMP Laboratory Tests 04/08/19 06:35 MARIANELA GIORDANO MD Apr 08, 2019 14:06
[2019-04-08] MEDS ORDERED: NEOSPORIN TOP OINT 15GM As Ordered ONE (14:07)
--- NOTE | 2019-04-08 14:31 | ROOPDOC ---
[facility] Report Of Operation Report of Operation DATE OF PROCEDURE: 04/08/19 PREPROCEDURE DIAGNOSES: Poor healing right tibial incision s/p R fem-tib bypass. POSTPROCEDURE DIAGNOSES: Same. PROCEDURE: 1. Superficial debridement non-viable skin distal tibial incision, 2cm2 2. Placement 3 vertical mattress sutures R distal tibial incision 3. Dressing change bypass incisions RLE SURGEON: Urvashi Herrera MD ANESTHESIA: MAC INDICATION FOR PROCEDURE: Mr. Arteaga is a 53-year-old gentleman with long-term profound peripheral vascular disease failed multiple revascularizations in the right lower extremity with severe short distance/long recovery claudication and worsening rest pain. He underwent a very challenging right femoral endarterectomy, profundoplasty, posterior tibial endarterectomy, and femoral to posterior tibial bypass with in situ vein a week ago. His area of greatest ischemia at the foot and ankle was over the posterior tibial distribution. With the revascularization, 2 incisions were required in that same area, one for the distal vein harvest and one the posterior tibial exposure. These incisions were in an area already with compromised flow for an extended period of time, and we fully expected a challenge in healing. Over the past week, there has been purple discoloration around the incisions that has slowly started to improve, but the distal most aspect of the tibial incision appeared to have some black nonviable skin edges. We do not have an option to cover the vessel should the skin and tissue tissue covering it completely breakdown. The patient has mostly collateral circulation to the muscle of the calf which would make a muscle flap down to the ankle unlikely to be successful. I'm hoping that with time, the area will heal now that he has better perfusion. This is all complicated by the fact that the patient is a heavy smoker. During this hospitalization, we have been able to help him abstain from any nicotine vasoconstriction, but when he goes home, the likelihood that he will start smoking is extremely high. If he does smoke, I have told him repeatedly that there is 100% chance that everything we did to save his leg will fail. The dark skin is stable, will likely turn into an eschar, and hopefully will heal from the inside out now that we have reperfused the area. There is no guarantee about this. It is not a good place to excise the necrotic skin and place a wound VAC because the vessel is directly below. Therefore, our plan today is simply to take out some of the ravindra from the necrotic area, clean it up as best we can, and place some nylon vertical mattress sutures to help keep the tissue together while it heals. The patient has been on bedrest for a week, but cannot stay on bedrest forever, and we eventually are going to need to start getting him up to ambulate. Probably on Wednesday we will start having physical therapy walk with him a little bit again, and he may need to go to rehabilitation for a short time before going home, but it will be critical for him to keep his leg elevated whenever he is not ambulating to help decrease swelling and allow the tissue to heal. Risks benefits and alternatives to this procedure were explained to the patient is agreeable to proceed. Informed consent was obtained. REPORT OF OPERATION: The patient was brought to the operating room in stable condition. Monitored anesthesia care and antibiotics were administered without combination. His right lower extremity was prepped and draped in sterile fashion. A timeout was performed. The ravindra at the distal tibial incision were removed. They were also removed from the distal vein harvest incision. The vein harvest incision is healing well, and Steri-Strips were placed at the distal aspect of the wound. At the tibial incision, there is nonviable skin for 4 cm. It is about 1.5 cm wide as well. It appears to be superficial. Superficial nonviable skin just proximal to this was removed. 3 nylon vertical mattress sutures were placed to help take tension off the wound and keep the skin edges with the necrosis left intact together. There is no signs of infection, no erythema, no purulence, so I do not feel debriding this away is necessary at the moment. My hope is that healthy tissue will fill in from the wound edges and from below and eventually the eschar will be able to be superficially debrided. There are no guarantees about this, but I do not feel removing that tissue and leaving a large open deficit will allow the patient to heal or have limb salvage. The area was copiously irrigated with saline and thoroughly cleaned. Triple antibiotic ointment was placed over the eschar and the ravindra on the proximal aspect of the incision. Xeroform was placed and kerlix was used to wrap the ankle. The patient tolerated this well. No issues with hemostasis were noted and a possible negligible. His other incisions on the right lower extremity and in the right groin were thoroughly cleaned, and redressed with foam border dressings in a sterile fashion. He was then taken to recovery in stable condition. ESTIMATED BLOOD LOSS: Approximately 2 mL. COMPLICATIONS: None. PLAN: Our plan will be continue with local wound care at the right ankle and to slowly increase the patient's activity as tolerated. There is no guarantee that we can heal the skin at the distal ankle, as the tissue was ischemic for a significant period of time before revascularization. However, I think the improvement seen in the area overall over the past week or encouraging, and is not futile to continue to try to heal the ankle. Abstinence from nicotine is critical as any vasoconstriction will result in failure of healing, and likely failure of the bypass. High-protein diet is important for wound healing. Tight glucose control is important for wound healing as well. Elevation of the right lower extremity to help reduce swelling whenever rest is also imperative. We will continue to follow closely. URVASHI HERRERA MD Apr 08, 2019 14:31
[2019-04-08] MEDS ORDERED: LR 1,000 ML IV SCH (15:00)
[2019-04-08] MEDS ORDERED: ONDANSETRON 4MG/2ML VIAL (J2405) IV PRN (15:00)
[2019-04-08] MEDS ORDERED: METOCLOPRAMIDE INJ 10MG/2ML VIAL (J2765) IV PRN (15:00)
[2019-04-08] MEDS: PERCOCET 5MG/325MG TAB PO PRN ×2 (15:01→15:31)
[2019-04-08] MEDS ORDERED: PERCOCET 5MG/325MG TAB As Ordered ONE ×2 (15:01→15:30)
[2019-04-08] MEDS ORDERED: fentaNYL 100 MCG/2 ML INJECTION (J3010) As Ordered ONE (15:11)
[2019-04-08] MEDS: fentaNYL 100 MCG/2 ML INJECTION (J3010) IV PRN ×4 (15:11→15:26)
[2019-04-08] MEDS ORDERED: LEVEMIR (INSULIN DETEMIR) 1 UNITS/0.01ML SC SCH (21:00)
[2019-04-08] MEDS: ATORVASTATIN 20 MG TAB PO SCH (21:17)
[2019-04-08] MEDS: METOPROLOL SUCC *XL* 25MG TAB (TopROL *XL*) PO SCH (21:18)
[2019-04-08] MEDS: LISINOPRIL 20 MG TAB PO SCH (21:18)
[2019-04-09] MEDS: PERCOCET 5MG/325MG TAB PO SCH ×5 (01:11→23:44)
[2019-04-09] MEDS: HYDROMORPHONE HCL 0.5 MG/ 0.5 ML SYRINGE (J1170 PER 1) IV PRN ×4 (03:31→21:24)
[2019-04-09 06:00] VITALS: BP 150/85
[2019-04-09] MEDS: HumaLOG INSULIN (NovoLOG) PER UNIT SC SCH ×4 (08:07→21:23)
[2019-04-09] MEDS: APIXABAN 5 MG TAB (ELIQUIS) PO SCH ×2 (08:08→21:23)
[2019-04-09] MEDS: LEVEMIR (INSULIN DETEMIR) 1 UNITS/0.01ML SC SCH ×2 (08:08→21:23)
--- NOTE | 2019-04-09 11:15 | IPNPDOC ---
Date Seen The patient was seen on 04/09/19. Progress Note HISTORY OF PRESENT ILLNESS: 53-year-old male, past medical history of coronary artery disease status post cardiac stent, severe peripheral vascular disease, status post multiple arterial stents, hypertension, hyperlipidemia, diabetes mellitus, active smoker, is being admitted for right common from oral endarterectomy and posterior distal endarterectomy. 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 Patient is otherwise without any complaints, denies any shortness of breath, chest pain, nausea, vomiting, abdominal pain or diarrhea at this time. Patient was initially studied for surgery today, due to scheduling will undergo the procedure tomorrow. 04/08/2019 Patient continues to have right lower extremity incisional pain, evaluated by vascular surgery, scheduled for revision of distal right bypass incision later today by vascular surgery. 04/09/2019 Patient underwent cleaning of right ankle incision with suturing yesterday, he reports slight improvement in ankle pain, no other complaints at this time. He denies any short of breath, chest pain, nausea, vomiting, no pain or diarrhea. 10 point review of system is negative except for above HOME MEDICATIONS: Please see below. PHYSICAL EXAMINATION: VITAL SIGNS: Please see below. GENERAL: No distress HEENT: Normocephalic, atraumatic, moist mucous membranes NECK: Supple CARDIOVASCULAR EXAMINATION: S1, S2, systolic murmur appreciated RESPIRATORY EXAMINATION: Clear to auscultation, no wheezing ABDOMINAL EXAMINATION: Soft, nontender, nondistended, positive bowel sounds EXTREMITIES: Right lower extremity with dressing in place SKIN: No rash NEUROLOGICAL EXAMINATION: Alert and oriented 3, no focal deficits PSYCHIATRIC EXAMINATION: Calm and cooperative LABORATORY DATA: See below. MICROBIOLOGY: Please see below. 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 PLAN: 1. Peripheral vascular disease with short distance claudication. Status post right common femoral endarterectomy, posterior tibial endarterectomy with femoral to posterior tibial bypass Continue postop management as per rest with surgery, on Eliquis. Status post cleaning and re-suturing of incision at the right ankle yesterday, further care as per vascular surgery. 2. Hypertension. Continue home meds with hold parameters 3. Diabetes mellitus. Hold glipizide, sliding scale insulin with fingersticks before meals and at bedtime. Continue Levemir at 50 units daily, patient was significant hyperglycemia, will add an additional dose of Levemir 20 units at bedtime. 4. Hyperlipidemia. Continue atorvastatin DVT prophylaxis: On Eliquis GI prophylaxis: Not needed VS, I&O, 24H, Fishbone Vital Signs/I&O Vital Signs Date Time Temp Pulse Resp B/P (MAP) Pulse Ox O2 Delivery O2 Flow Rate FiO2 04/09/19 09:01 18 Room Air 04/09/19 06:00 97.5 99 150/85 (106) 95 04/08/19 14:45 2 I&O- Last 24 Hours up to 6 AM 04/09/19 06:00 Intake Total 3130 ml Output Total 3300 ml Balance -170 ml Laboratory Data 24H LABS Laboratory Tests 2 04/08/19 12:09: Bedside Glucose (Misc Panel) 287H 04/08/19 14:32: Bedside Glucose (Misc Panel) 188H 04/08/19 17:05: Bedside Glucose (Misc Panel) 147H 04/08/19 20:51: Bedside Glucose (Misc Panel) 232H 04/09/19 06:04: Bedside Glucose (Misc Panel) 253H MARIANELA GIORDANO MD Apr 09, 2019 11:15
[2019-04-09 14:51] VITALS: BP 120/65
[2019-04-09] MEDS ORDERED: NYSTATIN OINTMENT 15 GM TOP PRN (20:30)
--- NOTE | 2019-04-09 20:35 | IPNPDOC ---
Date Seen The patient was seen on 04/09/19. Progress Note Patient seen and examined POD#8 s/p extensive limb salvage revascularization 04/01/19, including right common femoral endarterectomy and profundoplasty with patch angioplasty, right posterior tibial endarterectomy and plantar thrombectomy, right femoral posterior tibial distal bypass with in situ vein, revision of the in situ vein due to poor vein quality, and subsequent arteriograms, angioplasty and interventions to improve flow through the vein. He continues to report he is doing okay with smoking cessation. He has previously b een advised his bypass will likely fail if he continues to smoke. He is at extremely high risk for limb loss, and has no additional options for other endovascular or open revascularization should this fail. The bypass was successful, and the patient has a dramatic improvement in perfusion postop R foot. His DP signal was weakly monophasic, now strong biphasic signal due to increased collateral circulation flow after revascularizing the [employer]ER[employer] and profunda flow. The posterior tibial angiosome has reperfused after bypass, but the tissue in the area of GSV harvest distally and posterior tibial artery distally has been very tenuous. It is not ideal to have a narrow skin bridge between incisions at the ankle, especially in an area that was so poorly perfused for a long time. I am concerned about possible dehiscence and exposed bypass/PT artery if this occurs. There is not suitable blood flow to the muscle for a muscle flap coverage. I have been carefully watching this over the past week and performing careful wound care, and keeping the pt mostly on bedrest with his leg elevated to try to help with healing. However, he needs to get up eventually and walk, but I am very concerned about dehiscence and poor healing. I discussed with the patient that the best option may be to return to the OR, remove a few ravindra at the distal posterior tibial incision and clean the dried blood off, place a few vertical mattress nylon sutures to help with security at the incision and prevent gross dehiscence- but not try to bring the skin edges all the way together if there is tension. Then we can do local wound care until healed. This was done yesterday and the patient tolerated it well. He has a nickel sized area of superficial skin and dermal necrosis, but the deeper tissue is so far intact. 3 vertical mattress sutures were placed to help prevent dehiscence. I have explained to the pt, his , and his mother that this will take at least a month to heal. However, the dark tissue bw the incisions continues to improve daily, and I feel the reperfusion will eventually allow healing of the ankle wound as well. On exam today, the patient has a very warm and pink foot. He continues to have triphasic signal over the femoral posterior tibial bypass at the distal calf area, biphasic signal over the dorsal pedis artery. Incisions remain clean and dry, the discoloration around the tibial incision appears stable today. There is much less dark discoloration between the incision sites at the distal ankle. There is a nickel sized area of black skin at the distal tibial incision- sutures intact and no dehiscence. There is no other areas of skin breakdown. All incisions are thoroughly cleaned, leg incisions covered with optifoam, groin covered with dry gauze, ankle incision is redressed with triple antibiotic ointment, xeroform and Kerlix. The patient tolerated this well. Plan is to try to get the pt ambulating tomorrow and see if he needs rehab or is doing well enough to go home. We'd like him to be home for the holiday. Pt should continue smoking cessation-- this is imperative. No nicotine supplementation or replacements as the patient cannot afford any vasoconstriction. We will continue eliquis, high protein diet to help with healing, minimal ambulation and elevation RLE to help diminish swelling, careful wound care. Analgesia changed 2 days ago to schedule percocet, and pt said he is doing much better with his pain the past 2 days. He has not needed much supplemental IV analgesia since starting the scheduled pain medication and should be able to go home on just percocet. VS, I&O, 24H, Fishbone Vital Signs/I&O Vital Signs Date Time Temp Pulse Resp B/P (MAP) Pulse Ox O2 Delivery O2 Flow Rate FiO2 04/09/19 18:00 20 Room Air 04/09/19 14:51 98.7 107 120/65 (83) 97 04/08/19 14:45 2 I&O- Last 24 Hours up to 6 AM 04/09/19 06:00 Intake Total 3130 ml Output Total 3300 ml Balance -170 ml Laboratory Data 24H LABS Laboratory Tests 2 04/08/19 20:51: Bedside Glucose (Misc Panel) 232H 11/24/19 06:04: Bedside Glucose (Misc Panel) 253H 04/09/19 11:56: Bedside Glucose (Misc Panel) 278H 04/09/19 17:05: Bedside Glucose (Misc Panel) 216H URVASHI MANCINI MD Apr 09, 2019 20:35
[2019-04-09] MEDS: ATORVASTATIN 20 MG TAB PO SCH (21:23)
[2019-04-09] MEDS: METOPROLOL SUCC *XL* 25MG TAB (TopROL *XL*) PO SCH (21:23)
[2019-04-09] MEDS: LISINOPRIL 20 MG TAB PO SCH (21:24)
[2019-04-09] MEDS: diazePAM 5 MG TAB PO PRN (21:26)
[2019-04-09 22:00] VITALS: BP 151/78
[2019-04-10] MEDS: HYDROMORPHONE HCL 0.5 MG/ 0.5 ML SYRINGE (J1170 PER 1) IV PRN ×4 (03:55→21:32)
[2019-04-10] MEDS: PERCOCET 5MG/325MG TAB PO SCH ×3 (05:31→17:40)
[2019-04-10 06:00] VITALS: BP 122/74
[2019-04-10 08:03] LABS: BLOOD UREA NITROGEN 13 MG/DL (7-18); CALCIUM LEVEL 9.1 MG/DL (8.5-10.1); CARBON DIOXIDE LEVEL 30 MEQ/L (21-32); CHLORIDE LEVEL 98 MEQ/L (98-107); CREATININE FOR GFR 0.54 MG/DL (0.70-1.30); GLOMERULAR FILTRATION RATE > 60.0 (>56); GLUCOSE, FASTING 235 MG/DL (70-100); MAGNESIUM LEVEL 1.8 MG/DL (1.8-2.4); PHOSPHORUS LEVEL 3.6 MG/DL (2.5-4.9); POTASSIUM SERUM 4.1 MEQ/L (3.5-5.1); SODIUM LEVEL 135 MEQ/L (136-145)
[2019-04-10] MEDS: HumaLOG INSULIN (NovoLOG) PER UNIT SC SCH ×4 (08:13→21:00)
[2019-04-10] MEDS: LEVEMIR (INSULIN DETEMIR) 1 UNITS/0.01ML SC SCH ×2 (08:13→21:30)
[2019-04-10] MEDS: APIXABAN 5 MG TAB (ELIQUIS) PO SCH ×2 (08:14→21:31)
[2019-04-10 09:01] LABS: HEMATOCRIT 34.8 % (42.0-52.0); HEMOGLOBIN 11.1 g/dl (13.5-17.5); MEAN CORPUSCULAR HEMOGLOBIN 27.5 pg (27.0-33.0); MEAN CORPUSCULAR HGB CONC 31.9 g/dl (32.0-36.5); MEAN CORPUSCULAR VOLUME 86.4 fl (80.0-96.0); PLATELET COUNT, AUTOMATED 359 10^3/uL (150-450); RED BLOOD COUNT 4.03 10^6/uL (4.30-6.10); WHITE BLOOD COUNT 9.9 10^3/uL (4.0-10.0)
[2019-04-10] MEDS: MAG SULF 1GM/100ML (MAG RUN) 1 GM in IV 1 EA IV SCH ×2 (10:26→11:28)
[2019-04-10 14:42] VITALS: BP 120/79
--- NOTE | 2019-04-10 15:07 | IPNPDOC ---
Text Note Date of Service The patient was seen on 04/10/19. NOTE Patient seen and examined POD#9 s/p extensive limb salvage revascularization 04/01/19, including right common femoral endarterectomy and profundoplasty with patch angioplasty, right posterior tibial endarterectomy and plantar thrombectomy, right femoral posterior tibial distal bypass with in situ vein, revision of the in situ vein due to poor vein quality, and subsequent ar teriograms, angioplasty and interventions to improve flow through the vein. He continues to report he is doing okay with smoking cessation. He has previously been advised his bypass will likely fail if he continues to smoke. He is at extremely high risk for limb loss, and has no additional options for other endovascular or open revascularization should this fail. 04/08/19. S/P removal a few ravindra at the distal posterior tibial incision and clean the dried blood off, placement a few vertical mattress nylon sutures to help with security at the incision and prevent gross dehiscence- but not try to bring the skin edges all the way together if there is tension and the patient tolerated it well. He has a nickel sized area of superficial skin and dermal necrosis, but the deeper tissue is so far intact. 3 vertical mattress sutures were placed to help prevent dehiscence. The dark tissue between the incisions continues to improve. On exam today, the patient has a very warm and pink foot. He continues to have triphasic signal over the femoral posterior tibial bypass at the distal calf a [place], biphasic signal over the dorsal pedis artery. Incisions remain clean and dry, the discoloration around the tibial incision appears stable today. There is less dark discoloration between the incision sites at the distal ankle. There is a nickel sized area of black skin at the distal tibial incision- sutures intact and no dehiscence. There is no other areas of skin breakdown. All incisions are thoroughly cleaned, leg incisions covered with optifoam, groin covered with dry gauze, ankle incision is redressed with triple antibiotic ointment, xeroform and Kerlix. The patient tolerated this well. Pt should continue smoking cessation-- this is imperative. No nicotine supplementation or replacements as the patient cannot afford any vasoconstriction. Continue eliquis, Continue high protein diet to help with healing, Minimal ambulation and elevation RLE to help diminish swelling, Continue careful wound care. Pt states his mother will be helping him with wound care at home. Analgesia changed scheduled percocet 04/07/19. Would anticipate Pt to go home on just percocet. VS,Fishbone, I+O VS, Fishbone, I+O Laboratory Tests 04/10/19 05:42 Vital Signs Date Time Temp Pulse Resp B/P (MAP) Pulse Ox O2 Delivery O2 Flow Rate FiO2 04/10/19 14:54 18 Room Air 04/10/19 06:00 97.1 88 122/74 (90) 96 04/08/19 14:45 2 I&O- Last 24 Hours up to 6 AM 04/10/19 06:00 Intake Total 2010 ml Output Total 1700 ml Balance 310 ml Kisha Alvarez Apr 10, 2019 15:07
[2019-04-10 20:22] VITALS: BP 126/77
[2019-04-10 21:31] VITALS: BP 126/77
[2019-04-10] MEDS: METOPROLOL SUCC *XL* 25MG TAB (TopROL *XL*) PO SCH (21:31)
[2019-04-10] MEDS: LISINOPRIL 20 MG TAB PO SCH (21:31)
[2019-04-10] MEDS: ATORVASTATIN 20 MG TAB PO SCH (21:31)
[2019-04-11] MEDS: PERCOCET 5MG/325MG TAB PO SCH ×3 (00:17→12:28)
[2019-04-11 06:29] VITALS: BP 128/83
--- NOTE | 2019-04-11 07:36 | IPNPDOC ---
Date Seen The patient was seen on 04/10/19. Progress Note HISTORY OF PRESENT ILLNESS: 53-year-old male, past medical history of coronary artery disease status post cardiac stent, severe peripheral vascular disease, status post multiple arterial stents, hypertension, hyperlipidemia, diabetes mellitus, active smoker, is being admitted for right common from oral endarterectomy and posterior distal endarterectomy. 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 Patient is otherwise without any complaints, denies any shortness of breath, chest pain, nausea, vomiting, abdominal pain or diarrhea at this time. Patient was initially studied for surgery today, due to scheduling will undergo the procedure tomorrow. 04/08/2019 Patient continues to have right lower extremity incisional pain, evaluated by vascular surgery, scheduled for revision of distal right bypass incision later today by vascular surgery. 04/09/2019 Patient underwent cleaning of right ankle incision with suturing yesterday, he reports slight improvement in ankle pain, no other complaints at this time. He denies any short of breath, chest pain, nausea, vomiting, no pain or diarrhea. 04/10/2019 Patient comfortable, without any complaints, reports improvement in right ankle pain, tolerating diet. 10 point review of system is negative except for above HOME MEDICATIONS: Please see below. PHYSICAL EXAMINATION: VITAL SIGNS: Please see below. GENERAL: No distress HEENT: Normocephalic, atraumatic, moist mucous membranes NECK: Supple CARDIOVASCULAR EXAMINATION: S1, S2, systolic murmur appreciated RESPIRATORY EXAMINATION: Clear to auscultation, no wheezing ABDOMINAL EXAMINATION: Soft, nontender, nondistended, positive bowel sounds EXTREMITIES: Right lower extremity with dressing in place SKIN: No rash NEUROLOGICAL EXAMINATION: Alert and oriented 3, no focal deficits PSYCHIATRIC EXAMINATION: Calm and cooperative LABORATORY DATA: See below. MICROBIOLOGY: Please see below. 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 PLAN: 1. Peripheral vascular disease with short distance claudication. Status post right common femoral endarterectomy, posterior tibial endarterectomy with femoral to posterior tibial bypass Continue postop management as per rest with surgery, on Eliquis. 2. Hypertension. Continue home meds with hold parameters 3. Diabetes mellitus. Hold glipizide, sliding scale insulin with fingersticks before meals and at bedtime. Continue Levemir at 50 units in the morning and 20 units at bedtime. 4. Hyperlipidemia. Continue atorvastatin DVT prophylaxis: On Eliquis GI prophylaxis: Not needed VS, I&O, 24H, Fishbone Vital Signs/I&O Vital Signs Date Time Temp Pulse Resp B/P (MAP) Pulse Ox O2 Delivery O2 Flow Rate FiO2 04/11/19 06:29 98.0 94 16 128/83 (98) 98 Room Air 04/08/19 14:45 2 I&O- Last 24 Hours up to 6 AM 04/11/19 06:00 Intake Total 1440 ml Output Total 1275 ml Balance 165 ml Laboratory Data 24H LABS Laboratory Tests 2 04/10/19 07:42: Bedside Glucose (Misc Panel) 197H 04/10/19 11:54: Bedside Glucose (Misc Panel) 272H 04/10/19 16:43: Bedside Glucose (Misc Panel) 225H 04/10/19 20:19: Bedside Glucose (Misc Panel) 192H 04/11/19 06:13: Bedside Glucose (Misc Panel) 220H MARIANELA GIORDANO MD Apr 11, 2019 07:36
[2019-04-11] MEDS: HumaLOG INSULIN (NovoLOG) PER UNIT SC SCH ×2 (08:50→12:36)
[2019-04-11] MEDS: HYDROMORPHONE HCL 0.5 MG/ 0.5 ML SYRINGE (J1170 PER 1) IV PRN (08:50)
[2019-04-11 09:00] VITALS: BP 132/70
[2019-04-11] MEDS: LEVEMIR (INSULIN DETEMIR) 1 UNITS/0.01ML SC SCH (09:43)
[2019-04-11] MEDS: APIXABAN 5 MG TAB (ELIQUIS) PO SCH (09:44)
[2019-04-11 14:00] VITALS: BP 118/60
--- NOTE | 2019-04-11 14:43 | IPNPDOC ---
Text Note Date of Service The patient was seen on 04/11/19. NOTE Patient seen and examined POD#10 s/p extensive limb salvage revascularization 04/01/19, including right common femoral endarterectomy and profundoplasty with patch angioplasty, right posterior tibial endarterectomy and plantar thrombectomy, right femoral posterior tibial distal bypass with in situ vein, revision of the in situ vein due to poor vein quality, and subsequent arteriograms, angioplasty and interventions to improve flow through the vein. He continues to report he is doing okay with smoking cessation. He has previously been advised his bypass will likely fail if he continues to smoke. He is at extremely high risk for limb loss, and has no additional options for other endovascular or open revascularization should this fail. S/P removal a few ravindra at the distal posterior tibial incision 04/08/[address] Herrera. Cleaned the dried blood off, placement a few vertical ma ttress nylon sutures to help with security at the incision and prevent gross dehiscence- but not try to bring the skin edges all the way together related to tension. He has a nickel sized area of superficial skin and dermal necrosis, but the deeper tissue is so far intact. 3 vertical mattress sutures were placed to help prevent dehiscence. The dark tissue between the incisions continues to improve. On exam today, the patient has a very warm and pink foot. He continues to have triphasic signal over the femoral posterior tibial bypass at the distal calf area, biphasic signal over the dorsal pedis artery. Incisions remain clean and d ry, the discoloration around the tibial incision appears stable today. There continues to be less dark discoloration between the incision sites at the distal ankle. There is a nickel sized area of black skin at the distal tibial incision- sutures intact and no dehiscence. There is no other areas of skin breakdown. All incisions are thoroughly cleaned, leg incisions covered with optifoam, groin covered with dry gauze, ankle incision is redressed with triple antibiotic ointment, xeroform and Kerlix. The patient tolerated this well. Pt should continue smoking cessation-- this is imperative. No nicotine supplementation or replacements as the patient cannot afford any vasoconstriction. Continue eliquis, Continue high protein diet to help with healing, Minimal ambulation and elevation RLE to help diminish swelling, Continue careful wound care. Pt states his mother will be helping him with wound care at home. [facility] is assisting with obtaining home care for discharge. For discharge the patient can apply Hydrofera Blue over the ankle area with dry Kerlix. Optifoam over the calf and thigh incisions. Dry gauze over the groin incisions. Analgesia changed scheduled percocet 04/07/19. Would anticipate Pt to go home on just percocet. The patient should follow-up with vascular surgery early next week to recheck his wounds and monitor healing. Will consider staple removal POD 14-17. VS,Fishbone, I+O VS, Fishbone, I+O Vital Signs Date Time Temp Pulse Resp B/P (MAP) Pulse Ox O2 Delivery O2 Flow Rate FiO2 04/11/19 14:00 98.5 100 18 118/60 (79) 96 Room Air 04/08/19 14:45 2 I&O- Last 24 Hours up to 6 AM 04/11/19 06:00 Intake Total 1440 ml Output Total 1275 ml Balance 165 ml Kisha Alvarez Apr 11, 2019 14:43
[2019-04-11] MEDS ORDERED: ELIQ5TAB PO (14:50)
[2019-04-11] MEDS ORDERED: APIXABAN 5 MG TAB (ELIQUIS) PO SCH (21:00)
== END 2019-04-11 16:50 | disposition home health service (06) | DRG 181 ==
LOC: M MSPAV 15:43 → M ICU 04-01 20:37 → M MS5PR 04-02 17:30
PROVIDERS: ADMIT Internal Medicine; ATTEND Internal Medicine
PROC: 04CR0ZZ Extirpation of Matter from Right Posterior Tibial Artery, Open Approach (ICD-10-PCS; 2019-04-01)
PROC: 047 Lower Arteries, Dilation (ICD-10-PCS; 2019-04-01)
PROC: 06C Lower Veins, Extirpation (ICD-10-PCS; 2019-04-01)
PROC: 041K0JN Bypass Right Femoral Artery to Posterior Tibial Artery with Synthetic Substitute, Open Approach (ICD-10-PCS; 2019-04-01)
PROC: 04CK0ZZ Extirpation of Matter from Right Femoral Artery, Open Approach (ICD-10-PCS; principal; 2019-04-01 08:30)
PROC: 0HBKXZZ Excision of Right Lower Leg Skin, External Approach (ICD-10-PCS; 2019-04-08)
DX: E11.51 Type 2 diabetes mellitus with diabetic peripheral angiopathy without gangrene (principal); E83.42 Hypomagnesemia; I70.221 Atherosclerosis of native arteries of extremities with rest pain, right leg; I10 Essential (primary) hypertension; I25.10 Atherosclerotic heart disease of native coronary artery without angina pectoris; E78.5 Hyperlipidemia, unspecified; I70.211 Atherosclerosis of native arteries of extremities with intermittent claudication, right leg; F17.210 Nicotine dependence, cigarettes, uncomplicated; Z95.5 Presence of coronary angioplasty implant and graft; Z79.82 Long term (current) use of aspirin; Z79.02 Long term (current) use of antithrombotics/antiplatelets; Z79.84 Long term (current) use of oral hypoglycemic drugs; Z79.899 Other long term (current) drug therapy

== ENCOUNTER → 2019-06-26 | Outpatient (CLI) | payer OTHER ==
[~2019-06-26] MED LIST changes: +ELIQ5TAB PO; -LR 1,000 ML IV ONE; -ceFAZolin SOD 2 GM in IV 1 EA IV ONE
--- NOTE | 2019-06-26 11:59 | REP ---
Bilateral lower extremity arterial Doppler ultrasound: History: Atherosclerosis. Right lower extremity bypass graft. Findings: Ankle brachial indices are 0.9 on the right and reduced at 0.5 on the left. No increased velocities seen in the right common femoral artery. The right superficial femoral and right popliteal artery segments are occluded. The right tibioperoneal trunk and proximal posterior tibial artery is occluded. Monophasic waveforms are noted at and distal to the proximal superficial femoral artery on the left. A patent bypass graft is noted on the right from common femoral artery to distal posterior tibial artery. There is a 8:1 velocity stenosis in the proximal superficial femoral artery on the left. Extensive plaquing is noted. Peak systolic flow velocity in the distal aorta is 66.1 cm/sec. Velocity chart right lower extremity bypass graft CF A anastomosis 47 cm/S Proximal graft 37 Mid thigh 74 Distal thigh 78 Knee 57 Proximal calf 41 Mid calf 54 Ankle 23 Distal anastomoses 23 Arterial Doppler velocity chart right lower extremity: Right CHRISTINA 111 cm/S D I A 150 cm/S Right CF A 229 Profunda 213 Proximal SFA occluded Mid SFA occluded Distal SFA occluded Popliteal occluded Proximal AT A 22 Tibioperoneal trunk occluded Proximal PARTS SALESPERSON occluded Distal PARTS SALESPERSON 19 Distal AT A 17 Arterial Doppler velocity chart left lower extremity. Left CHRISTINA 93 cm/S D I A 107 CF A 56 Profunda 108 Proximal SFA 474 Mid SFA 99 Distal SFA 33 Popliteal 27 Proximal AT A 836 Tibioperoneal trunk 52 Proximal PARTS SALESPERSON 32 Distal PARTS SALESPERSON 32 Distal AT A 14 Electronically Signed by Surinder Plummer MD 06/26/2019 11:51 A
== END ==
LOC: M RAD 08:53
PROVIDERS: ATTEND Surgery Vascular Surgery
DX: Z48.812 Encounter for surgical aftercare following surgery on the circulatory system (principal)

== ENCOUNTER → 2020-01-15 | Outpatient (CLI) | payer OTHER ==
--- NOTE | 2020-03-25 13:30 | REP ---
INDICATION: CLAUDICATION. Repeat dictation. COMPARISON: June 26, 2019.. TECHNIQUE: Bilateral lower extremity duplex arterial ultrasound. FINDINGS: Ankle branchial indices are measured at 1.1 on the right and 0.5 on the left. The left dorsalis pedis is occluded. There is a patent bypass graft from the right femoral artery to the posterior tibial artery. The right mid and distal superficial femoral artery and right popliteal artery are occluded. The tibial-peroneal trunk and proximal posterior tibial artery on the right are occluded. Reversed flow is seen in the distal anterior tibial on the right. On the left monophasic waveforms are noted at and below the mid superficial femoral artery. The distal anterior tibial artery is occluded. Right lower extremity arterial Doppler velocity chart: Right WAITER/WAITRESS THIRD CLASS PSV 210 cm/S Profundal 209 Proximal SFA 113 Mid SFA occluded Distal SFA occluded Popliteal occluded Proximal JOHN occluded Tibial-peroneal trunk occluded Proximal STENCILING MACHINE TENDER occluded Distal STENCILING MACHINE TENDER 79 Distal JOHN reversed 6.8 Left lower extremity arterial Doppler velocity chart: Left WAITER/WAITRESS THIRD CLASS PSV 106 cm/S Profundal 163 Proximal SFA 291 Mid SFA 102 Distal SFA 11 Popliteal 18 Proximal JOHN 89 Tibial-peroneal trunk 74 Proximal STENCILING MACHINE TENDER 17 Distal STENCILING MACHINE TENDER 18 Distal JOHN occluded IMPRESSION: Duplex arterial ultrasound bilateral lower extremities as above. <Electronically signed by Leroy Plummer > 03/25/20 [id number]
== END ==
LOC: M RAD 09:37
PROVIDERS: ATTEND Physician Assistant
DX: I70.213 Atherosclerosis of native arteries of extremities with intermittent claudication, bilateral legs (principal)

== ENCOUNTER → 2020-05-13 | Outpatient (CLI) | payer OTHER ==
[~2020-05-13] MED LIST changes: +HEPARIN DRIP 25,000 UNITS in IV 1 EA IV SCH; +HEPARIN SOD (PORCINE) 5000UNITS/ML 1ML VIAL/SYRINGE IV PRN; +HumaLOG INSULIN (NovoLOG) PER UNIT As Ordered ONE; +HumaLOG INSULIN (NovoLOG) PER UNIT SC ONE; +ISOVUE-300 61% 50ML VIAL As Ordered ONE; +LIDOCAINE 1% MDV 20ML VIAL As Ordered ONE; +MIDAZOLAM INJ 2MG/2ML VIAL (J2250 PER 1MG) As Ordered ONE; +PERCOCET 5MG/325MG TAB PO PRN; +VICT18IN SC; +diazePAM 5MG TABLET PO PRN; +fentaNYL 100 MCG/2 ML INJECTION (J3010) As Ordered ONE
[2020-05-13 07:15] LABS: HEMATOCRIT 46.1 % (42.0-52.0); HEMOGLOBIN 15.1 g/dl (13.5-17.5); MEAN CORPUSCULAR HEMOGLOBIN 27.2 pg (27.0-33.0); MEAN CORPUSCULAR HGB CONC 32.8 g/dl (32.0-36.5); MEAN CORPUSCULAR VOLUME 82.9 fl (80.0-96.0); PLATELET COUNT, AUTOMATED 179 10^3/uL (150-450); RED BLOOD COUNT 5.56 10^6/uL (4.30-6.10); WHITE BLOOD COUNT 15.5 10^3/uL (4.0-10.0)
[2020-05-13 07:44] LABS: BLOOD UREA NITROGEN 10 MG/DL (7-18); CALCIUM LEVEL 8.7 MG/DL (8.5-10.1); CARBON DIOXIDE LEVEL 24 MEQ/L (21-32); CHLORIDE LEVEL 101 MEQ/L (98-107); CREATININE FOR GFR 0.73 MG/DL (0.70-1.30); GLOMERULAR FILTRATION RATE > 60.0 (>56); GLUCOSE, FASTING 280 MG/DL (70-100); POTASSIUM SERUM 3.8 MEQ/L (3.5-5.1); SODIUM LEVEL 133 MEQ/L (136-145)
--- NOTE | 2020-05-13 09:36 | ROOPDOC ---
[facility] Report Of Operation Report of Operation DATE OF PROCEDURE: 05/13/20 PREPROCEDURE DIAGNOSES: Atherosclerosis of the [place] arteries with worsening left leg claudication and pain POSTPROCEDURE DIAGNOSES: Same PROCEDURE: 1. Ultrasound guided access right common femoral artery 2. Aortoiliofemoral arteriogram 3. Selection left common femoral artery and left lower extremity runoff 4. Selection distal left superficial femoral artery and arteriogram 5. Mynx closure right common femoral artery SURGEON: Urvashi Herrera MD ANESTHESIA: Local anesthesia 6cc lidocaine. Moderate intravenous conscious sedation was supervised by Dr. Herrera. The patient was independently monitored by a registered nurse assigned to the Department of radiology using automated blood pressure EKG and pulse oximetry. The detail sedation record is permanently stored in the hospital information system. The following is a brief sedation record: Start time 08:18, stop time 08:58, Versed 1 mg IV, Fentanyl 25 mcg IV INDICATION FOR PROCEDURE: This is a very pleasant 54-year-old gentleman status post extensive revascularization of his right lower extremity, who returns to clinic for follow-up with complaints of worsening claudication since his last imaging study. He discussed with us that his claudication have been relatively stable in the left leg but is gotten progressively worse over the last week. He has a history of a left femoral endarterectomy, but no revascularization below the groin. We discussed the risks benefits alternatives to the left lower extremity arteriogram and potential intervention he is agreeable to proceed. I expressed to him that I am not sure we would be able to provide an endovascular option for him, but I think it is worthwhile to try. Additionally, we would like to see exactly how good his tibial runoff is if we need to do a bypass, in order to better predict success. The patient is agreeable to proceed and informed consent was obtained. INTERPRETATION: 1. His distal aorta and iliac segments are calcified and ectatic but patent. There are some mild diffuse stenoses throughout the common iliac arteries hypogastric arteries and external iliac arteries, but less than 20% stenosis. Overall, the inflow through the iliac segments is fairly good. 2. The bilateral common femoral artery status post endarterectomy are widely patent. 3. The left profunda artery is widely patent with excellent collateral flow to the above and below-knee popliteal artery. The left superficial femoral artery has a 99% occlusion at its origin, intermittent occlusions and stenoses throughout the proximal two thirds of the vessel with extensive collateral circulation around this, and reconstitution at Dannie's canal with some diffuse disease throughout the popliteal artery although it is patent. There is excellent runoff through the posterior tibial artery to the foot, and this is the patient's best vessel through the, and he has minimal thready runoff through the peroneal artery to the ankle. The anterior tibial artery is occluded at its origin, but does reconstitute intermittently throughout the calf with we collateral flow from the popliteal artery and above, and from the tibials below. It occludes just above the ankle and does not reconstitute at the foot. 4. We were able to cross through the superficial femoral artery to the distal thigh, but could not cross into the true lumen of the popliteal artery above the knee. Extensive efforts were taken, but we were ultimately unsuccessful. Final imaging showed that there was no extravasation and still good flow through the collaterals. REPORT OF OPERATION: Patient was brought to the angiographic suite in stable condition. His bilateral groins were prepped and draped in a sterile fashion. A timeout was performed. Local anesthesia was administered to the skin and subcutaneous tissue over the right common femoral artery. A microneedle was used to access artery under ultrasound guidance. A wire was passed through this access and 4 Portuguese sheath was placed and flushed with saline. Care was taken to access the artery proximal to the origin of the femoropopliteal bypass so as not to disrupt his right lower extremity flow. The Glidewire was advanced through this access into the distal aorta and a flushing catheter was advanced over the wire under fluoroscopic guidance. An aortoiliofemoral femoral arteriogram was performed. Please see interpretation above. We then went up and over the bifurcation with the catheter in the Glidewire and selected the left common femoral artery and the left lower extremity arteriogram with runoff was performed. Please see interpretation above. We then exchange the sheath over the wire for 5 Portuguese sheath and flushed the sheath with saline. We utilized the Glidewire and an angled glidecath to try to cross into the nearly occluded superficial femoral artery. It took a bit of time, but eventually we were successful. Once we were in the superficial femoral artery, we had challenges crossing through the occlusions in the mid vessel, and we exchange the catheter over the wire for an O35 [place] catheter and use this to cross distally. Crossing was challenging as the catheter continued to want to select collaterals instead of the true lumen of the very disease vessel. Eventually we were able to cross down to the distal thigh, but could not get back into the true lumen of the popliteal artery. Extensive efforts were made, but eventually this was aborted. We did take a completion arteriogram within the superficial femoral artery from her [place] catheter to confirm that there was no extravasation or injury to the vessel, and there was still good flow into the collateral system. We then flushed with saline and a Mynx closure device was deployed at the right groin with good hemostasis. Pressure was held for 5 minutes for good hemostasis and sterile dressings were applied. The patient was then taken to recovery in stable condition. He tolerated the sedation and the procedure well. ESTIMATED BLOOD LOSS: Approximately 4 mL. COMPLICATIONS: None. PLAN: Okay to resume home diet and medications. Okay to resume eliquis tonight. We will see the patient back in clinic to check his groin access site and discuss options for a left femoropopliteal bypass. He could have a left above- knee femoropopliteal bypass, but I think it may be safer to do a below knee based on his history and severe peripheral vascular disease. We will get a vein mapping to see if he has available left saphenous vein that is suitable for bypass. We appreciate the opportunity to participate in the care of this patient. URVASHI HERRERA MD May 13, 2020 09:35
--- NOTE | 2020-05-13 11:53 | REP ---
INDICATION: Need LLE vein mapping please--preop planning fempop bypass COMPARISON: None. TECHNIQUE: Collins scale and color Doppler evaluation of the left lower extremity using linear high frequency transducer. FINDINGS: Ultrasound examination of the left lower extremity without evidence for thrombosis. Proximal greater saphenous vein: 3.8 mm Greater saphenous vein (midthigh): 3.1 mm Greater saphenous vein (knee): 3.2 mm Proximal calf: 3.0 mm Mid calf: 1.4 mm Distal calf/ankle: 1.8 mm Lesser saphenous vein (posterior knee): 2.2 mm Proximal lesser saphenous vein: 2.0 mm Mid lesser saphenous vein: 1.8 mm Distal lesser saphenous vein (ankle): 1.9 mm IMPRESSION: 1. No evidence for deep venous thrombosis. 2. Superficial venous measurements as above. <Electronically signed by Dharmesh Salgado > 05/13/20 1048
[2020-05-13 12:42] VITALS: BP 138/74
== END ==
LOC: M IRPRO 06:42
PROVIDERS: ATTEND Surgery Vascular Surgery
DX: I70.212 Atherosclerosis of native arteries of extremities with intermittent claudication, left leg (principal); I70.222 Atherosclerosis of native arteries of extremities with rest pain, left leg; I10 Essential (primary) hypertension; E11.51 Type 2 diabetes mellitus with diabetic peripheral angiopathy without gangrene; E78.00 Pure hypercholesterolemia, unspecified; F17.210 Nicotine dependence, cigarettes, uncomplicated; Z79.01 Long term (current) use of anticoagulants; Z79.82 Long term (current) use of aspirin; Z79.899 Other long term (current) drug therapy; Z95.828 Presence of other vascular implants and grafts
CPT/HCPCS: 36246; 75630; 75774; 80048; 85027; 93971; 99152; 99153; C1760; C1769; C1887; C1894; G0269; J1644; J2250; J3010; Q9967

== ENCOUNTER → 2023-03-24 | Outpatient (CLI) | payer OTHER ==
[~2023-03-24] MED LIST changes: -CLIN150C14 PO; +CLIN150C17 PO; +GLIP5TAB17 PO; -GLIP5TAB8 PO; -HEPARIN DRIP 25,000 UNITS in IV 1 EA IV SCH; -HEPARIN SOD (PORCINE) 5000UNITS/ML 1ML VIAL/SYRINGE IV PRN; -HumaLOG INSULIN (NovoLOG) PER UNIT As Ordered ONE; -HumaLOG INSULIN (NovoLOG) PER UNIT SC ONE; -ISOVUE-300 61% 50ML VIAL As Ordered ONE; -LIDOCAINE 1% MDV 20ML VIAL As Ordered ONE; -LISI-538 PO; +LISI10TA22 PO; -LISI10TA4 PO; +LISI20TA33 PO; -MIDAZOLAM INJ 2MG/2ML VIAL (J2250 PER 1MG) As Ordered ONE; -PERCOCET 5MG/325MG TAB PO PRN; -diazePAM 5MG TABLET PO PRN; -fentaNYL 100 MCG/2 ML INJECTION (J3010) As Ordered ONE
== END ==
LOC: M RAD 11:32
PROVIDERS: ATTEND Physician Assistant
DX: I65.23 Occlusion and stenosis of bilateral carotid arteries (principal)